=== PATIENT | male | born 1960 | race Caucasian/White ===

== ENCOUNTER 2023-07-24 21:59 | Inpatient (IN) | payer OTHER, SELFPAY ==
--- NOTE | ~2023-07-24 | CT_ITS ---
EXAMINATION: CT ANGIOGRAM OF THE CHEST WITH AND WITHOUT CONTRAST (CT PULMONARY ANGIOGRAM FOR PE) CLINICAL INFORMATION: Reason for Exam cardiac arrest COMPARISON: Chest x-ray July 24, 2023 TECHNIQUE: Prior to contrast administration, noncontrast localization images were obtained. Subsequently, multidetector volumetric imaging was performed from the thoracic inlet to below the diaphragms following the administration of 65 mL Omnipaque 350 intravenous contrast. No contrast reaction reported Sagittal, coronal, and MIP oblique sagittal reformatted images were obtained on the CT workstation, uploaded to PACS, and reviewed. This CT examination was performed using dose optimization techniques as appropriate, variously including the following: *Automated exposure control *Adjustment of mA and/or kV according to patient size (this includes techniques or standardized protocols for targeted exams where dose is matched to indication/reason for exam; i.e. extremities or head) *Use of iterative reconstruction technique Total exam dose-length product 313 mGy-cm FINDINGS: QUALITY OF STUDY/CONTRAST BOLUS: Satisfactory. PULMONARY ARTERIES: No pulmonary emboli. THORACIC AORTA: No aneurysm. LUNG: No focal consolidation, nodules or masses. PLEURA: No pleural effusion or pneumothorax. MEDIASTINUM: Normal heart size. No pericardial effusion. No hilar or mediastinal lymphadenopathy. No evidence of septal bowing or right heart strain. CORONARY ARTERY CALCIFICATION: None visualized on this study. CHEST WALL/AXILLA: No axillary or internal mammary lymphadenopathy. OSSEOUS STRUCTURES: Nondisplaced fracture of the anterior right second and fourth rib. There is displaced fracture of the anterior right third and fifth ribs. UPPER ABDOMEN: Unremarkable. No reflux of contrast into the hepatic veins to suggest elevated right heart pressures. CT/CT angio chest PE protocol IMPRESSION: 1. No evidence of pulmonary embolism. 2. Fractures of the anterior right second through fifth ribs. VTE: negative.
--- NOTE | ~2023-07-24 | XR_ITS ---
EXAMINATION: XR CHEST CLINICAL INFORMATION: Post arrest COMPARISON: None available. TECHNIQUE: Frontal view of the chest was obtained. FINDINGS: The cardiac and mediastinal contours are stable. The lungs are clear. No pleural effusion or pneumothorax. Degenerative changes of the spine. No acute bone abnormality. XR/XR chest 1V IMPRESSION: No evidence for acute disease in the chest.
--- NOTE | 2023-07-24 22:02 | ECG_ITS ---
Test Reason : CARDIAC ARREST Blood Pressure : / mmHG Vent. Rate : 077 BPM Atrial Rate : 077 BPM P-R Int : 156 ms QRS Dur : 092 ms QT Int : 388 ms P-R-T Axes : 018 016 064 degrees QTc Int : 439 ms Normal sinus rhythm Normal ECG No previous ECGs available Referred By: Patrizia Holman Electronically Signed By:LLUVIA GUIDRY MD
[2023-07-24 22:03] VITALS: BP 168/106; PULSE 78; RESP 16; O2SAT 99; BMI 29.9
[2023-07-24 22:15] LABS: MANUAL DIFF FLAG NO
[2023-07-24 22:16] LABS: Basophils Absolute Auto 0.1 X10*3/uL (0.0-0.2); Basophils Percent Auto 0.7 % (0-2); Eosinophils Absolute Auto 0.2 X10*3/uL (0.0-0.4); Eosinophils Percent Auto 2.4 % (0-4); Hematocrit 39.3 % (42.0-52.0); Hemoglobin 13.8 g/dl (14.0-18.0); Imm Gran Abs Auto 0.08 X10*3/uL (0.00-0.03); Imm Gran Pct Auto 1.2 % (0.0-0.4); Lymphocytes Absolute Auto 1.8 X10*3/uL (1.2-4.9); Lymphocytes Percent Auto 27.1 % (20-40); Mean Corpuscular HGB Conc 35.1 g/dl (31.0-36.0); Mean Corpuscular Hemoglobin 34.2 pg (27.0-33.0); Mean Corpuscular Volume 97.5 fL (80.0-98.0); Mean Platelet Volume 10.2 fL (9.4-12.4); Monocytes Absolute Auto 0.9 X10*3/uL (0.1-1.2); Monocytes Percent Auto 12.9 % (2-11); Neutrophils Absolute Auto 3.7 x10*3/uL (2.0-8.3); Neutrophils Percent Auto 55.7 % (45-73); Platelet Count 140 X10*3/uL (160-400); Red Blood Count 4.03 X10*6/uL (4.60-5.80); Red Cell Distribution Width 12.7 % (11.0-16.0); White Blood Count 6.7 X10*3/uL (4.8-10.8)
[2023-07-24] MEDS: 0.9 % Sodium Chloride 1,000 ML 999 ML IV (22:20)
[2023-07-24 22:25] LABS: Venous Blood Gas Refer to POC result
--- NOTE | 2023-07-24 22:25 | ED_ITS ---
HPI - Syncope General Chief Complaint: Cardiac Arrest/CPR Stated Complaint: collapsed Time Seen by Provider: 07/24/23 22:01 Source: patient and old records reviewed Mode of arrival: ambulatory Limitations: no limitations History of Present Illness HPI narrative: 63 yo male with PMH of HTN on lisinopril. He was in room 4 visiting his who is being admitted for Flu A she was in respiratory distress on arrival to the ED. A tech was in the room talking to the and the when mid sentence the was sitting the chair and he stopped talking and agonal respirations were heard. He did not respond to tactile stimuli. No seizure activity was noted. Help was called to bedside. On my arrival he was with agonal respirations, no abnormal movements, carson colored, no response to any tactile stimuli, pupils were sluggish but not pinpoint. He had no radial or carotid pulses. He was moved from the chair to a stretcher with immediate vigoruous chest compressions for 2 minutes while we obtained a line and high flow O2 through NRB. The patient came around after 2 minutes and started to wake up. He came to did not need intubation and was placed on tele with NSR noted. He denies any history of this. Denies knowing what happened did not have prodrome. He notes he has been sick with the same illness as his . MD complaint: collapsed (loss of pulses) Onset (ago): minute(s) (2) Duration of episode: 3 -: minutes(s) Description of event: stopped breathing, lost pulse and CPR performed Prodromal symptoms: none Witnessed: Yes - by Bystander (ED staff) Context: at rest Injuries sustained associated with event: none Current symptoms: back to baseline Treatments prior to arrival: none Related Data Allergies Allergy/AdvReac Type Severity Reaction Status Date / Time No Known Allergies Allergy Verified 07/24/23 22:02 Review of Systems 2 Review of Systems: Constitutional : No Fever, No Chills, pos Fatigue ENT/Mouth : No sore throat, pos Rhinorrhea Eyes: No Eye Pain, No Swelling, No Redness Cardiovascular : No Chest Pain, No SOB, No Dyspnea on Exertion Respiratory : pos Cough, No Sputum Gastrointestinal : No Nausea, No Vomiting, No Diarrhea, No abdominal Pain Genitourinary : No Dysuria, No Urinary Frequency, No Hematuria, Musculoskeletal : No joint pain, No Myalgias, No Joint Swelling Skin : No Skin Lesions, No rash Neuro : No Weakness, No Numbness, No Dizziness, no Headache Psych : No Anxiety/Panic, No Depression Heme/Lymph: No Bruising, No Bleeding,No Lymphadenopathy Endocrine : No Polyuria, No Polydipsia All other systems reviewed and are negative FOR[facility]LY [facility] Past Medical History Attestation statement: The following information was validated with the patient. Source: old records reviewed Medical History HTN (hypertension) Social History Social History Patient Tobacco Use Status: Never used Tobacco Advance Directives: No Advance Directives Information Provided: No Physical Exam 2 Vital Signs: Vital Signs: Last Vital Signs Temp 99.1 F 07/25/23 00:00 Pulse 94 07/25/23 02:42 Resp 22 H 07/25/23 02:42 BP 175/100 H 07/25/23 02:42 Pulse Ox 95 07/25/23 02:42 O2 Del Method Room Air 07/25/23 02:42 BMI result Body Mass Index 29.9 Appearance: initially carson, agonal respirations, severe distress Eyes: Pupils equal, round and reactive to light. but sluggish not pinpoint ENT: Pharynx normal. no gag reflex noted Neck: Normal inspection. Neck supple. CVS: absent heart sounds and no pulses felt Respiratory: severe respiratory distress. Breath sounds diminished - agonal Abdomen: Soft and nontender. Skin: Skin carson and diaphoretic Extremities: No lower extremity edema. No calf ttp Neuro: initially no response to any stimuli after CPR back to baseline but did not recall events no prodrom Course Course Course Narrative: still at baseline no complaints. lactic acidosis due to cardiac arrest and not infection or severe sepsis Reevaluation(s) Reevaluation #1: hospitalist will not accept we have no ICU beds patient is thinking about leaving AMA as there are no beds at [facility] or [facility] Reevaluation #2: discussed with cardiology after review of case normal tele and two trops will be admitted here on tele Medications Administered Generic Name Dose Route Start Last Admin Trade Name Freq PRN Reason Stop Dose Admin Enoxaparin Sodium 40 mg 07/25/23 02:15 07/25/23 02:38 Enoxaparin Sodium 40 Mg/0.4 Ml Syringe SUBCUT 40 mg DAILY ANGELY Administration Ketorolac Tromethamine 15 mg 07/25/23 04:27 07/25/23 04:32 Ketorolac Tromethamine 15 Mg/Ml Vial IVPUSH 15 mg Q6H PRN Administration Pain, Moderate(Pain Scale 4-6) Discontinued Medications Generic Name Dose Route Start Last Admin Trade Name Freq PRN Reason Stop Dose Admin Sodium Chloride 1,000 mls @ 999 mls/hr 07/24/23 22:15 07/24/23 23:58 Ns IV 07/24/23 23:15 Infused .Q1H1M ANGELY Infusion Thiamine HCl 100 mg/ Sodium 101 mls @ 202 mls/hr 07/25/23 02:30 07/25/23 03:58 Chloride IV 07/25/23 02:59 Infused ONCE ONE Infusion Iohexol 65 ml 07/24/23 22:54 07/24/23 22:55 Iohexol 350 Mg/Ml 100 Ml Infus..Btl IV 07/24/23 22:55 65 ml ONCE ONE Administration Potassium Chloride 40 meq 07/24/23 22:47 07/24/23 23:03 Potassium Chloride Packet 20 Meq Packet PO 07/24/23 22:48 40 meq ONCE ONE Administration Medical Decision Making Medical Decision Making MDM Narrative: 63 yo male with PMH of HTN not a smoker with recent URI who was visiting his and had witnessed cardiac arrest in the ED no pulses before we could get him on the monitor after 2 min of CPR he had ROSC and initial rhythm was NSR. He denies any symptoms but did not have a prodrome. He denies hx of issues with the heart or arrythmia. At this time labs, IVF, CTA for PE, viral swab. Differential Diagnosis Differential Diagnoses: The differential diagnosis associated with the presentation includes arrythmia, lyte abnormality, PE Admission/Observation Consideration of admission/observation: Escalation of care including admission/observation considered will admit for tele Consult Healthcare Provider Management of the patient was discussed with: Hospitalist and Electrical Checkout Mechanic Lab Data MDM Lab Attestation statement: I reviewed the patient's lab results. 07/25/23 05:36 07/25/23 05:36 Labs: Lab Results 07/24/23 07/24/23 07/24/23 Range/Units 22:08 22:12 22:20 WBC 6.7 (4.8-10.8) X10*3/uL RBC 4.03 L (4.60-5.80) X10*6/uL Hgb 13.8 L (14.0-18.0) g/dl Hct 39.3 L (42.0-52.0) % MCV 97.5 (80.0-98.0) fL MCH 34.2 H (27.0-33.0) pg MCHC 35.1 (31.0-36.0) g/dl RDW 12.7 (11.0-16.0) % Plt Count 140 L (160-400) X10*3/uL MPV 10.2 (9.4-12.4) fL Immature Gran % (Auto) 1.2 H (0.0-0.4) % Neut % (Auto) 55.7 (45-73) % Lymph % (Auto) 27.1 (20-40) % [place] % (Auto) 12.9 H (2-11) % Eos % (Auto) 2.4 (0-4) % Baso % (Auto) 0.7 (0-2) % Lymph # (Auto) 1.8 (1.2-4.9) X10*3/uL [place] # (Auto) 0.9 (0.1-1.2) X10*3/uL Eos # (Auto) 0.2 (0.0-0.4) X10*3/uL Baso # (Auto) 0.1 (0.0-0.2) X10*3/uL Abs Immat Gran (auto) 0.08 H (0.00-0.03) X10*3/uL Absolute Neuts (auto) 3.7 (2.0-8.3) x10*3/uL Absolute Nucleated RBC 0.000 (0.0-0.012) X10*3/uL Nucleated RBC % (auto) 0.0 (0.0-0.2) /100WBC VBG pH 7.34 (7.32-7.43) VBG pCO2 46 mmHg VBG pO2 41 mmHg VBG HCO3 25 (22-26) mmol/L VBG O2 Saturation 64.0 % VBG Base Excess -0.6 mmol/L Sodium 136 (135-145) mmol/L Potassium 3.1 L (3.3-5.1) mmol/L Chloride 101 (96-108) mmol/L Carbon Dioxide 23 (22-29) mmol/L Anion Gap 15 (12-20) BUN 15 (9-16) mg/dL Creatinine 1.16 (0.5-1.4) mg/dL Estim Creat Clear Calc 65.3 Estimated GFR > 60 Random Glucose 151 H (60-115) mg/dL Lactic Acid 3.4 H* (0.5-2.0) mmol/L Lactic Acid F/U @ 2Hr (0.5-2.0) mmol/L Calcium 9.3 (8.4-10.2) mg/dL Magnesium 2.0 (1.6-2.6) mg/dL Total Bilirubin 0.3 (0.0-1.0) mg/dL Direct Bilirubin 0.1 (0.0-0.5) mg/dL AST 34 (5-37) U/L ALT 17 (0-40) U/L Alkaline Phosphatase 78 (39-117) U/L Troponin I High Sens 6.5 (<3.5-35.0) ng/L B-Natriuretic Peptide 35 (<100) pg/mL Total Protein 7.5 (6.5-8.0) g/dL Albumin 4.0 (3.5-5.0) g/dL Procalcitonin 0.09 ng/mL Urine Color Urine Appearance Urine pH (5.0-9.0) Ur Specific [place] (1.005-1.025) Urine Protein (Neg-Trace) mg/dL Urine Glucose (UA) (Negative) mg/dL Urine Ketones (Negative) mg/dL Urine Blood (Negative) Urine Nitrite (Negative) Ur Leukocyte Esterase (Negative) Urine RBC (0-2) /HPF Urine WBC (0-5) /HPF Ur Squamous Epith Cells (0-2) /HPF Urine Bacteria (None Seen) Hyaline Casts (0-2) /LPF Urine Opiates Screen (Not Detect) Urine Fentanyl Screen (Not Detect) Ur Barbiturates Screen (Not Detect) Ur Phencyclidine Scrn (Not Detect) Ur Amphetamines Screen (Not Detect) U Benzodiazepines Scrn (Not Detect) Urine Cocaine Screen (Not Detect) U Marijuana (THC) Screen (Not Detect) Ethyl Alcohol 101 mg/dL Influenza Type A (PCR) POSITIVE A (Negative) Influenza Type B (PCR) NEGATIVE (Negative) RSV RNA Qual (PCR) NEGATIVE (Negative) SARS-CoV-2 RNA (RT-PCR) NEGATIVE (Negative) 07/25/23 07/25/23 Range/Units 00:43 00:44 WBC (4.8-10.8) X10*3/uL RBC (4.60-5.80) X10*6/uL Hgb (14.0-18.0) g/dl Hct (42.0-52.0) % MCV (80.0-98.0) fL MCH (27.0-33.0) pg MCHC (31.0-36.0) g/dl RDW (11.0-16.0) % Plt Count (160-400) X10*3/uL MPV (9.4-12.4) fL Immature Gran % (Auto) (0.0-0.4) % Neut % (Auto) (45-73) % Lymph % (Auto) (20-40) % [place] % (Auto) (2-11) % Eos % (Auto) (0-4) % Baso % (Auto) (0-2) % Lymph # (Auto) (1.2-4.9) X10*3/uL [place] # (Auto) (0.1-1.2) X10*3/uL Eos # (Auto) (0.0-0.4) X10*3/uL Baso # (Auto) (0.0-0.2) X10*3/uL Abs Immat Gran (auto) (0.00-0.03) X10*3/uL Absolute Neuts (auto) (2.0-8.3) x10*3/uL Absolute Nucleated RBC (0.0-0.012) X10*3/uL Nucleated RBC % (auto) (0.0-0.2) /100WBC VBG pH (7.32-7.43) VBG pCO2 mmHg VBG pO2 mmHg VBG HCO3 (22-26) mmol/L VBG O2 Saturation % VBG Base Excess mmol/L Sodium (135-145) mmol/L Potassium (3.3-5.1) mmol/L Chloride (96-108) mmol/L Carbon Dioxide (22-29) mmol/L Anion Gap (12-20) BUN (9-16) mg/dL Creatinine (0.5-1.4) mg/dL Estim Creat Clear Calc Estimated GFR Random Glucose (60-115) mg/dL Lactic Acid (0.5-2.0) mmol/L Lactic Acid F/U @ 2Hr 1.9 (0.5-2.0) mmol/L Calcium (8.4-10.2) mg/dL Magnesium (1.6-2.6) mg/dL Total Bilirubin (0.0-1.0) mg/dL Direct Bilirubin (0.0-0.5) mg/dL AST (5-37) U/L ALT (0-40) U/L Alkaline Phosphatase (39-117) U/L Troponin I High Sens 7.9 (<3.5-35.0) ng/L B-Natriuretic Peptide (<100) pg/mL Total Protein (6.5-8.0) g/dL Albumin (3.5-5.0) g/dL Procalcitonin ng/mL Urine Color Yellow Urine Appearance Clear Urine pH 5.5 (5.0-9.0) Ur Specific [place] >= 1.030 H (1.005-1.025) Urine Protein Negative (Neg-Trace) mg/dL Urine Glucose (UA) Negative (Negative) mg/dL Urine Ketones Negative (Negative) mg/dL Urine Blood Trace H (Negative) Urine Nitrite Negative (Negative) Ur Leukocyte Esterase Negative (Negative) Urine RBC 3-5 H (0-2) /HPF Urine WBC 0-5 (0-5) /HPF Ur Squamous Epith Cells 0-2 (0-2) /HPF Urine Bacteria None Seen (None Seen) Hyaline Casts 0-2 (0-2) /LPF Urine Opiates Screen Not Detected (Not Detect) Urine Fentanyl Screen Not Detected (Not Detect) Ur Barbiturates Screen Not Detected (Not Detect) Ur Phencyclidine Scrn Not Detected (Not Detect) Ur Amphetamines Screen Not Detected (Not Detect) U Benzodiazepines Scrn Not Detected (Not Detect) Urine Cocaine Screen Not Detected (Not Detect) U Marijuana (THC) Screen POSITIVE H (Not Detect) Ethyl Alcohol mg/dL Influenza Type A (PCR) (Negative) Influenza Type B (PCR) (Negative) RSV RNA Qual (PCR) (Negative) SARS-CoV-2 RNA (RT-PCR) (Negative) Independent Interpretation I performed an independent interpretation of an: EKG, Plain X-Ray and CT Scan (no PE) Interpretation: Rate: 77 Rhythm: NSR [place]: normal Normal P waves. Normal BRIAN. Normal QRS complex. ST T wave : no HAILE, nonspecific ST T wave aVL, inverated T wave in V1-V2 qTC: 439 prior studies: The study has been interpreted contemporaneously by me. . Radiology Impression Discussion of test interpretation with radiology: I have reviewed the radiologist's reading. Independent Historian Clinical information obtained from an independent historian. History obtained from or confirmed by: Spouse Critical Care Time Critical Care Time Critical Care Time: Yes Total Critical Care Time: 45 Attestation: repeat labs, cardiac arrest care I attest to this time spent taking care of the patient Discharge Plan Discharge Clinical Impression: Cardiac arrest, Influenza A, Alcohol use Patient Disposition: Admitted As Inpatient
[2023-07-24 22:26] LABS: VBG Base Excess -0.6 mmol/L; VBG HCO3 25 mmol/L (22-26); VBG pCO2 46 mmHg; VBG pH 7.34 (7.32-7.43); VBG pO2 41 mmHg
[2023-07-24 22:36] LABS: B Type Natriuretic Peptide 35 pg/mL (<100)
[2023-07-24 22:38] LABS: Alanine Aminotransferase 17 U/L (0-40); Alkaline Phosphatase 78 U/L (39-117); Anion Gap 15 (12-20); Aspartate Amino Transferase 34 U/L (5-37); Bilirubin Direct 0.1 mg/dL (0.0-0.5); Bilirubin Total 0.3 mg/dL (0.0-1.0); Blood Urea Nitrogen 15 mg/dL (9-16); Calcium 9.3 mg/dL (8.4-10.2); Carbon Dioxide 23 mmol/L (22-29); Chloride 101 mmol/L (96-108); Creatinine Clr Calc Pharmacy 65.3; Estimated Glomerular Filt Rate > 60; Glucose Random 151 mg/dL (60-115); Potassium 3.1 mmol/L (3.3-5.1); Sodium 136 mmol/L (135-145); Total Protein 7.5 g/dL (6.5-8.0)
[2023-07-24 22:39] LABS: Troponin-I High Sensitivity 6.5 ng/L (<3.5-35.0)
[2023-07-24 22:45] LABS: Lactic Acid 3.4 mmol/L (0.5-2.0)
[2023-07-24 22:48] LABS: Ethanol 101 mg/dL
[2023-07-24 22:53] LABS: Procalcitonin 0.09 ng/mL
[2023-07-24 22:55] LABS: Influenza A PCR POSITIVE (Negative); Influenza B PCR NEGATIVE (Negative); Resp Syncy Virus RNA Qual PCR NEGATIVE (Negative); SARS COV2 PCR INHOUSE NEGATIVE (Negative)
[2023-07-24] MEDS: iohexoL 350 MG/ML 100 ML INFUS..BTL 65 ML IV (22:55)
[2023-07-24] MEDS: Potassium Chloride Packet 20 MEQ PACKET 40 MEQ PO (23:03)
[2023-07-24 23:19] VITALS: BP 167/97; PULSE 88; RESP 19; TEMP 36.8; O2SAT 99
[2023-07-25] VITALS (8 sets, daily range): BP systolic 113–189; BP diastolic 63–100; PULSE 82–96; RESP 18–26; TEMP 36.4–37.3; O2SAT 93–97; BMI 29.9
[2023-07-25 00:29] LABS: Reflex Lactate? Lactic Acid Added
--- NOTE | 2023-07-25 00:48 | PC.NURSE ---
Pt is A&Ox4, GCS 15, complaining of soreness in his chest. Pt has bilateral IV's. 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
[2023-07-25 00:51] LABS: Appearance Urine Clear; Color Urine Yellow; Glucose Urine UA Negative (Negative); Leukocyte Esterase Urine Negative (Negative); Nitrite Urine Negative (Negative); PH 5.5 (5.0-9.0); Specific Gravity - Urine >= 1.030 (1.005-1.025); UMIC TRIGGER UACC YES; Urine Blood Trace (Negative); Urine Ketones Negative (Negative); Urine Protein Negative (Neg-Trace)
[2023-07-25 00:58] LABS: Bacteria Urine None Seen (None Seen); Hyaline Casts Urine 0-2 /LPF (0-2); Squamous Epithelial Cell Urine 0-2 /HPF (0-2); WBC Urine 0-5 /HPF (0-5)
[2023-07-25 01:00] LABS: ~Lactic Acid-LAB USE ONLY 1.9 mmol/L (0.5-2.0)
[2023-07-25 01:04] LABS: Amphetamine Screen Urine Not Detected (Not Detect); Barbiturates, Urine Not Detected (Not Detect); Cannabinoid Screen Urine POSITIVE (Not Detect); Cocaine Screen Urine Not Detected (Not Detect); Fentanyl, urine Not Detected (Not Detect); Opiate Screen Urine Not Detected (Not Detect); Phencyclidine Screen Urine Not Detected (Not Detect)
[2023-07-25 01:08] LABS: Benzodiazepines Screen Urine Not Detected (Not Detect)
[2023-07-25 01:13] LABS: Troponin-I High Sensitivity 7.9 ng/L (<3.5-35.0)
--- NOTE | 2023-07-25 02:09 | P.HPHOSP_ITS ---
History of Present Illness Date of Service: 07/25/23 Chief Complaint: Cardiac arrest This is a 63-year-old male with pertinent history of essential hypertension on lisinopril who was in emergency department room with his , when he went unresponsive, he was found to have no pulse and resuscitated after 2 minutes of CPR. Patient states he was tested positive for flu 2 days prior to presentation. He has been feeling weak over the last 2 days. Patient found that his had difficulty breathing and could not go to the bathroom due to shortness of breath. He called EMS who got patient's to the ER. Patient accompanied his and was sitting in the emergency department room when mid sentence he stopped talking. Patient was unresponsive and found to have agonal respiration. And was not responding to tactile stimuli. No seizure activity was noted. As per ER provider, pupils with sluggish and there were no carotid or radial pulses. Patient was immediately moved to a stretcher and ACLS was initiated. ROSC obtained after 2 minutes of CPR. Patient's mentation returned to normal. 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 Patient states he has never been hospitalized in the past since his tonsillectomy as a child. He is compliant with his lisinopril for essential hypertension. He does consume alcohol and smokes marijuana but no history of alcohol withdrawals. History of sudden cardiac in family. Patient could not be transferred to ICU due to lack of availability of ICU bed in the facility. Cardiology was consulted who said okay to admit to med [facility]. Review of Systems 2 Constitutional: Constitutional: Reports fatigue, Reports lethargy and Reports malaise Cardiovascular: Cardiovascular: Reports no additional cardiovascular complaints Respiratory: Respiratory: Reports no additional respiratory complaints Gastrointestinal: Gastrointestinal: Reports no additional gastrointestinal complaints Genitourinary: Genitourinary: Reports no additional male genitourinary complaints Endocrine: Endocrine: Reports fatigue PMFSH Medical History HTN (hypertension) Pertinent family history: No family history of cardiac Social History Patient Tobacco Use Status: Never used Tobacco Advance Directives: No Advance Directives Information Provided: No Meds Allergies Allergy/AdvReac Type Severity Reaction Status Date / Time No Known Allergies Allergy Verified 07/24/23 22:02 Physical Exam 2 Vital Signs and Narrative: Vital Signs: Last Vital Signs Temp 99.1 F 07/25/23 00:00 Pulse 91 07/25/23 00:00 Resp 26 H 07/25/23 00:00 BP 113/63 07/25/23 00:00 Pulse Ox 93 07/25/23 00:00 O2 Del Method Room Air 07/25/23 00:00 BMI result Body Mass Index 29.9 Middle-aged male lying in bed in no distress Neck supple, no JVD Regular rate and rhythm, S1-S2 heard Regular breath sounds bilaterally, no wheezing or crackles appreciated Abdomen soft nontender, no guarding, no rigidity Patient is awake, alert and oriented to self, place, time and person ; no focal motor deficit Psych: Normal mood No pedal edema Results Labs 07/24/23 22:08 07/24/23 22:08 Labs: Laboratory Results - last 24 hr 07/24/23 07/24/23 07/24/23 22:08 22:12 22:20 MCV 97.5 MCH 34.2 H MCHC 35.1 RDW 12.7 Plt Count 140 L MPV 10.2 Immature Gran % (Auto) 1.2 H Neut % (Auto) 55.7 Lymph % (Auto) 27.1 [place] % (Auto) 12.9 H Eos % (Auto) 2.4 Baso % (Auto) 0.7 Lymph # (Auto) 1.8 [place] # (Auto) 0.9 Eos # (Auto) 0.2 Baso # (Auto) 0.1 Abs Immat Gran (auto) 0.08 H Absolute Neuts (auto) 3.7 Absolute Nucleated RBC 0.000 Nucleated RBC % (auto) 0.0 VBG pH 7.34 VBG pCO2 46 VBG pO2 41 VBG HCO3 25 VBG O2 Saturation 64.0 VBG Base Excess -0.6 Anion Gap 15 Estim Creat Clear Calc 65.3 Estimated GFR > 60 Random Glucose 151 H Lactic Acid 3.4 H* Lactic Acid F/U @ 2Hr Calcium 9.3 Magnesium 2.0 Total Bilirubin 0.3 Direct Bilirubin 0.1 AST 34 ALT 17 Alkaline Phosphatase 78 Troponin I High Sens 6.5 B-Natriuretic Peptide 35 Total Protein 7.5 Albumin 4.0 Procalcitonin 0.09 Urine Color Urine Appearance Urine pH Ur Specific [place] Urine Protein Urine Glucose (UA) Urine Ketones Urine Blood Urine Nitrite Ur Leukocyte Esterase Urine RBC Urine WBC Ur Squamous Epith Cells Urine Bacteria Hyaline Casts Urine Opiates Screen Urine Fentanyl Screen Ur Barbiturates Screen Ur Phencyclidine Scrn Ur Amphetamines Screen U Benzodiazepines Scrn Urine Cocaine Screen U Marijuana (THC) Screen Ethyl Alcohol 101 Influenza Type A (PCR) POSITIVE A Influenza Type B (PCR) NEGATIVE RSV RNA Qual (PCR) NEGATIVE SARS-CoV-2 RNA (RT-PCR) NEGATIVE 07/25/23 07/25/23 00:43 00:44 MCV MCH MCHC RDW Plt Count MPV Immature Gran % (Auto) Neut % (Auto) Lymph % (Auto) [place] % (Auto) Eos % (Auto) Baso % (Auto) Lymph # (Auto) [place] # (Auto) Eos # (Auto) Baso # (Auto) Abs Immat Gran (auto) Absolute Neuts (auto) Absolute Nucleated RBC Nucleated RBC % (auto) VBG pH VBG pCO2 VBG pO2 VBG HCO3 VBG O2 Saturation VBG Base Excess Anion Gap Estim Creat Clear Calc Estimated GFR Random Glucose Lactic Acid Lactic Acid F/U @ 2Hr 1.9 Calcium Magnesium Total Bilirubin Direct Bilirubin AST ALT Alkaline Phosphatase Troponin I High Sens 7.9 B-Natriuretic Peptide Total Protein Albumin Procalcitonin Urine Color Yellow Urine Appearance Clear Urine pH 5.5 Ur Specific [place] >= 1.030 H Urine Protein Negative Urine Glucose (UA) Negative Urine Ketones Negative Urine Blood Trace H Urine Nitrite Negative Ur Leukocyte Esterase Negative Urine RBC 3-5 H Urine WBC 0-5 Ur Squamous Epith Cells 0-2 Urine Bacteria None Seen Hyaline Casts 0-2 Urine Opiates Screen Not Detected Urine Fentanyl Screen Not Detected Ur Barbiturates Screen Not Detected Ur Phencyclidine Scrn Not Detected Ur Amphetamines Screen Not Detected U Benzodiazepines Scrn Not Detected Urine Cocaine Screen Not Detected U Marijuana (THC) Screen POSITIVE H Ethyl Alcohol Influenza Type A (PCR) Influenza Type B (PCR) RSV RNA Qual (PCR) SARS-CoV-2 RNA (RT-PCR) Imaging Radiologist's Impressions: Impressions Chest X-Ray 07/24/23 22:10 IMPRESSION: No evidence for acute disease in the chest. Chest CTA 07/24/23 23:11 IMPRESSION: 1. No evidence of pulmonary embolism. 2. Fractures of the anterior right second through fifth ribs. VTE: negative. Assessment and Plan (1) Cardiac arrest: Status: Acute (2) Influenza A: Status: Acute Plan This is a 63-year-old male with pertinent history of essential hypertension on lisinopril who was in emergency department room with his , when he went unresponsive, he was found to have no pulse and resuscitated after 2 minutes of CPR. #. Cardiac arrest: ROSC obtained in the ER after 2 minutes of ACLS. Unclear rhythm at the time of cardiac arrest. Cardiology was consulted who said it was okay to admit to med- tele. Obtaining echocardiogram. Mentation back to baseline and no indication for TTM #. Essential hypertension: On lisinopril #. Alcohol use disorder: Initiating thiamine. Monitor CIWA. No concerns of withdrawal #. Lactic acidosis due to cardiac arrest, no sepsis #. Influenza A infection: Initiating tamiflu #. Hypokalemia: Repleted DVT prophylaxis: Lovenox Full code Admit as inpatient and will require two night minimum hospital stay for close hemodynamic monitoring (as above), which is not possible in a lesser acute setting. Specialist consult pending Quality Stroke Does the patient have a stroke diagnosis?: No VTE Prior VTE?: No VTE Risk Level:: Medical - moderate - high VTE Device Contraindication: Treatment Not Indicated VTE Drug Contraindication: N/A - Med Ordered
[2023-07-25] MEDS: Thiamine HCL 100 MG in 0.9 % Sodium Chloride 100 ML 202 MG IV (02:38)
[2023-07-25] MEDS: Enoxaparin Sodium 40 MG/0.4 ML SYRINGE SUBCUT (02:38)
[2023-07-25] MEDS: Ketorolac Tromethamine 15 MG/ML VIAL IVPUSH ×3 (04:32→19:40)
[2023-07-25 05:50] LABS: Hematocrit 36.8 % (42.0-52.0); Mean Corpuscular HGB Conc 35.3 g/dl (31.0-36.0); Mean Corpuscular Hemoglobin 34.1 pg (27.0-33.0); Mean Corpuscular Volume 96.6 fL (80.0-98.0); Mean Platelet Volume 10.2 fL (9.4-12.4); Platelet Count 121 X10*3/uL (160-400); Red Blood Count 3.81 X10*6/uL (4.60-5.80); Red Cell Distribution Width 12.8 % (11.0-16.0); White Blood Count 4.8 X10*3/uL (4.8-10.8)
[2023-07-25 06:05] LABS: Anion Gap 14 (12-20); Blood Urea Nitrogen 12 mg/dL (9-16); Calcium 8.7 mg/dL (8.4-10.2); Carbon Dioxide 23 mmol/L (22-29); Chloride 104 mmol/L (96-108); Creatinine Clr Calc Pharmacy 86.1; Estimated Glomerular Filt Rate > 60; Glucose Random 112 mg/dL (60-115); Potassium 4.1 mmol/L (3.3-5.1); Sodium 137 mmol/L (135-145)
[2023-07-25 06:12] LABS: Troponin-I High Sensitivity 7.1 ng/L (<3.5-35.0)
--- NOTE | 2023-07-25 07:58 | PC.NURSE ---
this RN resumed care of pt at this time. a&ox4. vss and up to date. nsr on the panel monitor. pt verbalizing 4/10 right sided rib pain since medication administration. pt states pain increases w/ cough but otherwise tolerable. pt remains on 2L via NC for support - 98%. no sob/wob noted. pt able to speak in full/clear sentences w/o difficulty. respirations even and unlabored. pt resting in no apparent distress - waiting for bed assignment. plan of care ongoing. call dacosta placed within reach.
[2023-07-25] MEDS: lisinopriL 20 MG TABLET PO (08:40)
[2023-07-25] MEDS: 0.9 % Sodium Chloride Flush 3 ML SYRINGE IVFLUSH ×3 (08:41→19:43)
--- NOTE | 2023-07-25 08:42 | PC.NURSE ---
pt medicated per provider order. pt speaking w/ hospitalist at this time in regards to future plan of care. call dacosta placed within reach.
[2023-07-25] MEDS: Oseltamivir Phosphate 75 MG CAPSULE PO ×2 (08:43→19:40)
--- NOTE | 2023-07-25 09:06 | PHA.MEDREC ---
Pharmacy Consult ? Medication Reconciliation Pharmacy has completed the medication reconciliation. Spoke to patient and confirmed medication list.
--- NOTE | 2023-07-25 10:18 | HO.PM.IMPN ---
Subjective Subjective Date of Service: 07/25/23 Interval History: sore chest, otherwise feels fine Physical Exam Vital Signs: Vital Signs: Last Vital Signs Temp 97.9 F 07/25/23 07:57 Pulse 87 07/25/23 07:57 Resp 18 07/25/23 07:57 BP 156/95 H 07/25/23 07:57 Pulse Ox 97 07/25/23 07:57 O2 Del Method Nasal Cannula 07/25/23 07:57 O2 Flow Rate 2 07/25/23 07:57 BMI result Body Mass Index 29.9 General: AO X 3, no acute distress Resp: CTA bilateral, no accessory muscles used CVS: S1,S2,RRR chest tender to palpation GI: soft, non tender, non distended Neuro: motor grossly intact, alert, resting tremor Psych: appropriate affect, appropriate insight Objective Data Active Medications Acetaminophen (Acetaminophen 325 Mg Tablet) 650 mg PO Q6H PRN PRN Reason: Pain, Mild (Pain Scale 1-3) Enoxaparin Sodium (Enoxaparin Sodium 40 Mg/0.4 Ml Syringe) 40 mg SUBCUT DAILY [facility] Last Admin: 07/25/23 02:38 Dose: 40 mg Documented By: LORA Ketorolac Tromethamine (Ketorolac Tromethamine 15 Mg/Ml Vial) 15 mg IVPUSH Q6H PRN PRN Reason: Pain, Moderate(Pain Scale 4-6) Last Admin: 07/25/23 04:32 Dose: 15 mg Documented By: LORA Lisinopril (Lisinopril 20 Mg Tablet) 20 mg PO DAILY [facility]; Protocol Last Admin: 07/25/23 08:40 Dose: 20 mg Documented By: NEMESIO Melatonin (Melatonin 3 Mg Tablet) 6 mg PO BEDTIME PRN PRN Reason: Insomnia Ondansetron HCl (Ondansetron Hcl 4 Mg/2 Ml Vial) 4 mg IVPUSH Q8H PRN PRN Reason: Nausea and Vomiting Oseltamivir Phosphate (Oseltamivir Phosphate 75 Mg Capsule) 75 mg PO Q12H [facility] Stop: 07/29/23 21:01 Last Admin: 07/25/23 08:43 Dose: 75 mg Documented By: NEMESIO Sodium Chloride (0.9 % Sodium Chloride Flush 3 Ml Syringe) [facility] Last Admin: 07/25/23 08:41 Dose: 3 ml Documented By: NEMESIO Thiamine HCl (Thiamine Hcl 100 Mg Tablet) 100 mg PO DAILY [facility] Labs 07/25/23 05:36 07/25/23 05:36 Labs: Laboratory Results - last 24 hr 07/24/23 07/24/23 07/24/23 22:08 22:12 22:20 MCV 97.5 MCH 34.2 H MCHC 35.1 RDW 12.7 Plt Count 140 L MPV 10.2 Immature Gran % (Auto) 1.2 H Neut % (Auto) 55.7 Lymph % (Auto) 27.1 [place] % (Auto) 12.9 H Eos % (Auto) 2.4 Baso % (Auto) 0.7 Lymph # (Auto) 1.8 [place] # (Auto) 0.9 Eos # (Auto) 0.2 Baso # (Auto) 0.1 Abs Immat Gran (auto) 0.08 H Absolute Neuts (auto) 3.7 Absolute Nucleated RBC 0.000 Nucleated RBC % (auto) 0.0 VBG pH 7.34 VBG pCO2 46 VBG pO2 41 VBG HCO3 25 VBG O2 Saturation 64.0 VBG Base Excess -0.6 Anion Gap 15 Estim Creat Clear Calc 65.3 Estimated GFR > 60 Random Glucose 151 H Lactic Acid 3.4 H* Lactic Acid F/U @ 2Hr Calcium 9.3 Magnesium 2.0 Total Bilirubin 0.3 Direct Bilirubin 0.1 AST 34 ALT 17 Alkaline Phosphatase 78 Troponin I High Sens 6.5 B-Natriuretic Peptide 35 Total Protein 7.5 Albumin 4.0 Procalcitonin 0.09 Urine Color Urine Appearance Urine pH Ur Specific [place] Urine Protein Urine Glucose (UA) Urine Ketones Urine Blood Urine Nitrite Ur Leukocyte Esterase Urine RBC Urine WBC Ur Squamous Epith Cells Urine Bacteria Hyaline Casts Urine Opiates Screen Urine Fentanyl Screen Ur Barbiturates Screen Ur Phencyclidine Scrn Ur Amphetamines Screen U Benzodiazepines Scrn Urine Cocaine Screen U Marijuana (THC) Screen Ethyl Alcohol 101 Influenza Type A (PCR) POSITIVE A Influenza Type B (PCR) NEGATIVE RSV RNA Qual (PCR) NEGATIVE SARS-CoV-2 RNA (RT-PCR) NEGATIVE 07/25/23 07/25/23 07/25/23 00:43 00:44 05:36 MCV 96.6 MCH 34.1 H MCHC 35.3 RDW 12.8 Plt Count 121 L MPV 10.2 Immature Gran % (Auto) Neut % (Auto) Lymph % (Auto) [place] % (Auto) Eos % (Auto) Baso % (Auto) Lymph # (Auto) [place] # (Auto) Eos # (Auto) Baso # (Auto) Abs Immat Gran (auto) Absolute Neuts (auto) Absolute Nucleated RBC 0.000 Nucleated RBC % (auto) 0.0 VBG pH VBG pCO2 VBG pO2 VBG HCO3 VBG O2 Saturation VBG Base Excess Anion Gap 14 Estim Creat Clear Calc 86.1 Estimated GFR > 60 Random Glucose 112 Lactic Acid Lactic Acid F/U @ 2Hr 1.9 Calcium 8.7 D Magnesium Total Bilirubin Direct Bilirubin AST ALT Alkaline Phosphatase Troponin I High Sens 7.9 7.1 B-Natriuretic Peptide Total Protein Albumin Procalcitonin Urine Color Yellow Urine Appearance Clear Urine pH 5.5 Ur Specific [place] >= 1.030 H Urine Protein Negative Urine Glucose (UA) Negative Urine Ketones Negative Urine Blood Trace H Urine Nitrite Negative Ur Leukocyte Esterase Negative Urine RBC 3-5 H Urine WBC 0-5 Ur Squamous Epith Cells 0-2 Urine Bacteria None Seen Hyaline Casts 0-2 Urine Opiates Screen Not Detected Urine Fentanyl Screen Not Detected Ur Barbiturates Screen Not Detected Ur Phencyclidine Scrn Not Detected Ur Amphetamines Screen Not Detected U Benzodiazepines Scrn Not Detected Urine Cocaine Screen Not Detected U Marijuana (THC) Screen POSITIVE H Ethyl Alcohol Influenza Type A (PCR) Influenza Type B (PCR) RSV RNA Qual (PCR) SARS-CoV-2 RNA (RT-PCR) Assessment and Plan (1) Influenza A: Status: Acute Plan 63M PMH htn, etoh use presented with cardiac arrest as while visitor in ED cardiac arrest ROSC achieved after 2 minutes, NSR continue tele, echo, cardio eval back to baseline multiple rib fractures due to CPR symptomatic management etoh dependence monitor ciwa htn lisinopril flu a tamiflu acute hypokalemia replaced acute lactic acidosis resolved, due to cardiac arrest, not sepsis reason for continued hospitalization:ongoing work up for cardiac arrest Quality Stroke Does the patient have a stroke diagnosis?: No VTE Prior VTE?: No VTE Risk Level:: Medical - moderate - high VTE Device Contraindication: Treatment Not Indicated VTE Drug Contraindication: N/A - Med Ordered
--- NOTE | 2023-07-25 11:16 | PC.NURSE ---
pt verbalizing pain level is a 6/10 at this time. pt medicated w/ prn medication at this time. effectiveness pending.
--- NOTE | 2023-07-25 12:16 | PC.NURSE ---
admission worksheet complete. transport notified at this time.
--- NOTE | 2023-07-25 13:32 | PM.CNCAR ---
History of Present Illness History of Present Illness Date of Service: 07/25/23 Requesting physician: Sina Lezama Consult reason: other (Syncope) Chief complaint: Cardiac arrest Narrative: I was consulted to see Edward in cardiology consultation today as while he was waiting for his in the emergency room became unresponsive. He was found to have no pulse and CPR was initiated for 2 minutes. No rhythm was obtained at that time as thinks happen very quickly. Patient there was revived and since then has been doing well and has had no arrhythmias. Has pain at the site of the compression. Patient says that he has prior history of hypertension for which she takes lisinopril 20 mg. He said few days ago he started having symptoms with fever and shows he has not been eating and drinking well. He was diagnosed with flu. He had avoided working for few days and yesterday was taking care of his as she developed flu from him. She then developed respiratory distress and he called EMS and brought her to the emergency room. While waiting in the emergency room and while in the emergency room talking some when he stopped talking and became unresponsive with a going to respirations as noted. He was curry as per the ED physician. The pulse was noted and CPR was initiated. Unfortunately no rhythm strip was obtained. Patient had CPR for 2 minutes and subsequently has been admitted. Patient's mentation returned to normal and then compliance counsel showed 9 or sinus rhythm after that. Patient has no prior cardiac history. Patient has remained hemodynamically stable. This morning his blood pressure is elevated. Review of Systems Constitutional: Constitutional: Reports chills, Reports fever(s) and Reports poor appetite Eyes: Eyes: Reports no additional eye complaints Cardiovascular: Cardiovascular: Denies chest pain, Denies rapid heart rate, Denies lightheadedness, Reports Loss of Consciousness, Denies palpitations and Denies dyspnea Respiratory: Respiratory: Reports cough and Denies dyspnea Gastrointestinal: Gastrointestinal: Reports no additional gastrointestinal complaints Genitourinary: Genitourinary: Reports no additional male genitourinary complaints Musculoskeletal: Musculoskeletal: Reports no additional musculoskeletal complaints Integumentary/Breasts: Skin/Breast: Reports system reviewed and no additional complaints, except as docu Neurologic: Reports system reviewed and no additional complaints, except as documented Endocrine: Endocrine: Denies palpitations Hematologic/Lymphatic: Hematologic/Lymphatic: Reports no additional hematologic/lymphatic complaints Allergic/Immunologic: Allergic/Immunologic: Reports no additional allergic/immunologic complaints PMFSH Past Medical History Medical History HTN (hypertension) Social History Social History Household Members: Spouse Housing: House Do you presently have visiting nurse or other home services: No Patient Tobacco Use Status: Never used Tobacco Meds Allergies Allergy/AdvReac Type Severity Reaction Status Date / Time No Known Allergies Allergy Verified 07/24/23 22:02 Active Medications: Current Medications Acetaminophen (Acetaminophen 325 Mg Tablet) 650 mg PO Q6H PRN PRN Reason: Pain, Mild (Pain Scale 1-3) Enoxaparin Sodium (Enoxaparin Sodium 40 Mg/0.4 Ml Syringe) 40 mg SUBCUT DAILY [facility] Last Admin: 07/25/23 02:38 Dose: 40 mg Ketorolac Tromethamine (Ketorolac Tromethamine 15 Mg/Ml Vial) 15 mg IVPUSH Q6H PRN PRN Reason: Pain, Moderate(Pain Scale 4-6) Last Admin: 07/25/23 11:13 Dose: 15 mg Lisinopril (Lisinopril 20 Mg Tablet) 20 mg PO DAILY [facility]; Protocol Last Admin: 07/25/23 08:40 Dose: 20 mg Melatonin (Melatonin 3 Mg Tablet) 6 mg PO BEDTIME PRN PRN Reason: Insomnia Ondansetron HCl (Ondansetron Hcl 4 Mg/2 Ml Vial) 4 mg IVPUSH Q8H PRN PRN Reason: Nausea and Vomiting Oseltamivir Phosphate (Oseltamivir Phosphate 75 Mg Capsule) 75 mg PO Q12H [facility]PL[facility]ED [facility] Stop: 07/29/23 21:01 Last Admin: 07/25/23 08:43 Dose: 75 mg Sodium Chloride (0.9 % Sodium Chloride Flush 3 Ml Syringe) 3 ml IVFLUSH QSHIFT REPLACED BY [facility] Last Admin: 07/25/23 08:41 Dose: 3 ml Thiamine HCl (Thiamine Hcl 100 Mg Tablet) 100 mg PO DAILY [facility] Home Medications Medication Instructions Recorded Confirmed Last Taken Type ibuprofen 200 mg tablet 200 mg PO DAILY PRN Pain 07/25/23 07/25/23 Unknown History lisinopril 20 mg tablet 20 mg PO DAILY 07/25/23 07/25/23 07/24/23 History Physical Exam Vital Signs: Vital Signs: Last Vital Signs Temp 98.0 F 07/25/23 12:59 Pulse 88 07/25/23 12:59 Resp 20 07/25/23 12:59 BP 189/93 H 07/25/23 12:59 Pulse Ox 95 07/25/23 12:59 O2 Del Method Room Air 07/25/23 12:59 O2 Flow Rate 2 07/25/23 07:57 BMI result Body Mass Index 29.9 Const: General: cooperative, comfortable, no acute distress, alert, awake and anxious Nutritional Appearance: overweight Orientation/consciousness: patient oriented x3 HEENT: Head: Yes normocephalic and Yes atraumatic Neck: Neck: Yes trachea midline, Yes supple and Yes no JVD Resp: Effort & Inspection: normal respiratory effort Auscultation: clear to auscultation bilaterally Cardio: Jugular venous distension: no JVD Rate: regular rate Rhythm: regular rhythm Heart sounds: S1 normal heart sound present, S2 normal heart sound present, no click, no gallops, no murmurs and no rubs GI: Auscultation: normal bowel sounds Skin: General skin exam: no rashes or lesions noted Neuro: General: patient oriented x3 and no focal motor deficits Extrem: General: Yes no clubbing, cyanosis or edema Psych: Appearance: grossly normal Affect: Anxious affect present Objective Labs and Meds 07/25/23 05:36 07/25/23 05:36 Lab results: Laboratory Results - last 24 hr 07/24/23 07/24/23 07/24/23 22:08 22:12 22:20 WBC 6.7 RBC 4.03 L Hgb 13.8 L Hct 39.3 L MCV 97.5 MCH 34.2 H MCHC 35.1 RDW 12.7 Plt Count 140 L MPV 10.2 Immature Gran % (Auto) 1.2 H Neut % (Auto) 55.7 Lymph % (Auto) 27.1 [place] % (Auto) 12.9 H Eos % (Auto) 2.4 Baso % (Auto) 0.7 Lymph # (Auto) 1.8 [place] # (Auto) 0.9 Eos # (Auto) 0.2 Baso # (Auto) 0.1 Abs Immat Gran (auto) 0.08 H Absolute Neuts (auto) 3.7 Absolute Nucleated RBC 0.000 Nucleated RBC % (auto) 0.0 VBG pH 7.34 VBG pCO2 46 VBG pO2 41 VBG HCO3 25 VBG O2 Saturation 64.0 VBG Base Excess -0.6 Sodium 136 Potassium 3.1 L Chloride 101 Carbon Dioxide 23 Anion Gap 15 BUN 15 Creatinine 1.16 Estim Creat Clear Calc 65.3 Estimated GFR > 60 Random Glucose 151 H Lactic Acid 3.4 H* Lactic Acid F/U @ 2Hr Calcium 9.3 Magnesium 2.0 Total Bilirubin 0.3 Direct Bilirubin 0.1 AST 34 ALT 17 Alkaline Phosphatase 78 Troponin I High Sens 6.5 B-Natriuretic Peptide 35 Total Protein 7.5 Albumin 4.0 Procalcitonin 0.09 Urine Color Urine Appearance Urine pH Ur Specific [place] Urine Protein Urine Glucose (UA) Urine Ketones Urine Blood Urine Nitrite Ur Leukocyte Esterase Urine RBC Urine WBC Ur Squamous Epith Cells Urine Bacteria Hyaline Casts Urine Opiates Screen Urine Fentanyl Screen Ur Barbiturates Screen Ur Phencyclidine Scrn Ur Amphetamines Screen U Benzodiazepines Scrn Urine Cocaine Screen U Marijuana (THC) Screen Ethyl Alcohol 101 Influenza Type A (PCR) POSITIVE A Influenza Type B (PCR) NEGATIVE RSV RNA Qual (PCR) NEGATIVE SARS-CoV-2 RNA (RT-PCR) NEGATIVE 07/25/23 07/25/23 07/25/23 00:43 00:44 05:36 WBC 4.8 RBC 3.81 L Hgb 13.0 L Hct 36.8 L MCV 96.6 MCH 34.1 H MCHC 35.3 RDW 12.8 Plt Count 121 L MPV 10.2 Immature Gran % (Auto) Neut % (Auto) Lymph % (Auto) [place] % (Auto) Eos % (Auto) Baso % (Auto) Lymph # (Auto) [place] # (Auto) Eos # (Auto) Baso # (Auto) Abs Immat Gran (auto) Absolute Neuts (auto) Absolute Nucleated RBC 0.000 Nucleated RBC % (auto) 0.0 VBG pH VBG pCO2 VBG pO2 VBG HCO3 VBG O2 Saturation VBG Base Excess Sodium 137 Potassium 4.1 D Chloride 104 Carbon Dioxide 23 Anion Gap 14 BUN 12 Creatinine 0.88 Estim Creat Clear Calc 86.1 Estimated GFR > 60 Random Glucose 112 Lactic Acid Lactic Acid F/U @ 2Hr 1.9 Calcium 8.7 D Magnesium Total Bilirubin Direct Bilirubin AST ALT Alkaline Phosphatase Troponin I High Sens 7.9 7.1 B-Natriuretic Peptide Total Protein Albumin Procalcitonin Urine Color Yellow Urine Appearance Clear Urine pH 5.5 Ur Specific [place] >= 1.030 H Urine Protein Negative Urine Glucose (UA) Negative Urine Ketones Negative Urine Blood Trace H Urine Nitrite Negative Ur Leukocyte Esterase Negative Urine RBC 3-5 H Urine WBC 0-5 Ur Squamous Epith Cells 0-2 Urine Bacteria None Seen Hyaline Casts 0-2 Urine Opiates Screen Not Detected Urine Fentanyl Screen Not Detected Ur Barbiturates Screen Not Detected Ur Phencyclidine Scrn Not Detected Ur Amphetamines Screen Not Detected U Benzodiazepines Scrn Not Detected Urine Cocaine Screen Not Detected U Marijuana (THC) Screen POSITIVE H Ethyl Alcohol Influenza Type A (PCR) Influenza Type B (PCR) RSV RNA Qual (PCR) SARS-CoV-2 RNA (RT-PCR) EKG shows normal sinus rhythm with normal EKG Imaging Radiologist's impression: Impressions Chest X-Ray 07/24/23 22:10 IMPRESSION: No evidence for acute disease in the chest. Chest CTA 07/24/23 23:11 IMPRESSION: 1. No evidence of pulmonary embolism. 2. Fractures of the anterior right second through fifth ribs. VTE: negative. Assessment and Plan (1) Syncope: Status: Acute Witnessed syncope possible cardiac arrest as witnessed there was no pulse and ago no respirations. Patient however has no acute findings of myocardial ischemia. EKGs normal and troponin x4 normal BNP is in normal limits. It is possible this could be related to vasovagal syncope as he has had recent flu and poor oral intake and was orthostatic. Although this is unclear at this point time. Monitor for 1 more day. If there are no significant cardiac arrhythmias or any other symptoms will pursue outpatient workup to evaluate for structural heart disease and then follow-up with tilt-table test and possible implantable loop recorder. Will follow with you Procedures Date of Service Date of Service: 07/25/23
--- NOTE | 2023-07-25 16:29 | MHC.CM.PN ---
EMR REVIEWED, PT ADMITTED W/CARDIAC ARREST, CM MET W/PT IN 'S RM HE WAS VISITING IN RM [id number], PT AGREEABLE TO INTAKE AT 'S BEDSIDE AND DECLINES TO RETURN TO HIS ROOM. PT REPORTS HE LIVES W/, STILL WORKS [employer] AND DRIVES, PT IS FULLY INDEP W/ALL CARE DENIES USE OF DME/SERVICES AND GOAL IS HOME NO SERVICES AND PT WILL SELF TRNASPORT HIS CAR IS IN [facility] [address]. PT VERIFIES PCP IS NOHELIA TORRES W[facility], FULLY COVID VAXED AND HCP IS AND WILL BRING IN COPY OF NEW HCP/WILL.
[2023-07-25] MEDS: Thiamine HCL 100 MG TABLET PO (17:20)
[2023-07-26] MEDS: Ketorolac Tromethamine 15 MG/ML VIAL IVPUSH (04:37)
[2023-07-26 07:02] LABS: Hematocrit 34.9 % (42.0-52.0); Hemoglobin 12.5 g/dl (14.0-18.0); Mean Corpuscular HGB Conc 35.8 g/dl (31.0-36.0); Mean Corpuscular Hemoglobin 34.2 pg (27.0-33.0); Mean Corpuscular Volume 95.4 fL (80.0-98.0); Mean Platelet Volume 10.3 fL (9.4-12.4); Platelet Count 115 X10*3/uL (160-400); Red Blood Count 3.66 X10*6/uL (4.60-5.80); Red Cell Distribution Width 12.6 % (11.0-16.0); White Blood Count 3.7 X10*3/uL (4.8-10.8)
[2023-07-26 07:09] LABS: Anion Gap 14 (12-20); Blood Urea Nitrogen 13 mg/dL (9-16); Calcium 8.9 mg/dL (8.4-10.2); Carbon Dioxide 23 mmol/L (22-29); Chloride 102 mmol/L (96-108); Creatinine Clr Calc Pharmacy 95.9; Estimated Glomerular Filt Rate > 60; Glucose Fasting 102 mg/dL (60-99); Magnesium 1.7 mg/dL (1.6-2.6); Potassium 3.6 mmol/L (3.3-5.1); Sodium 135 mmol/L (135-145)
[2023-07-26 07:18] VITALS: BP 178/91; PULSE 65; RESP 18; TEMP 36.6; O2SAT 95
[2023-07-26] MEDS: Thiamine HCL 100 MG TABLET PO (08:13)
[2023-07-26] MEDS: Enoxaparin Sodium 40 MG/0.4 ML SYRINGE SUBCUT (08:13)
[2023-07-26] MEDS: Oseltamivir Phosphate 75 MG CAPSULE PO (08:13)
[2023-07-26] MEDS: lisinopriL 20 MG TABLET PO (08:13)
[2023-07-26] MEDS: 0.9 % Sodium Chloride Flush 3 ML SYRINGE IVFLUSH (08:14)
[2023-07-26 11:14] VITALS: BP 168/97; PULSE 82; RESP 18; TEMP 36.6; O2SAT 94
--- NOTE | 2023-07-26 11:30 | P.DS_ITS ---
DS: Providers Provider Date of Service: 07/26/23 Date of admission: 07/25/23 02:07 Primary care physician: Unknown Physician Consults: 07/25/23 02:20 Consult to Cardiology [place]ine [place]ing [place] [facility] [place] [facility] Reason for consultation: cardiac arrest Has provider been notified: Yes DS: Diagnosis Discharge Diagnosis (1) Syncope: Status: Acute DS: Summary Hospital Course Hospital Course: from initial hpi: 63-year-old male with pertinent history of essential hypertension on lisinopril who was in emergency department room with his , when he went unresponsive, he was found to have no pulse and resuscitated after 2 minutes of CPR. Patient states he was tested positive for flu 2 days prior to presentation. He has been feeling weak over the last 2 days. Patient found that his had difficulty breathing and could not go to the bathroom due to shortness of breath. He called EMS who got patient's to the ER. Patient accompanied his and was sitting in the emergency department room when mid sentence he stopped talking. Patient was unresponsive and found to have agonal respiration. And was not responding to tactile stimuli. No seizure activity was noted. As per ER provider, pupils with sluggish and there were no carotid or radial pulses. Patient was immediately moved to a stretcher and ACLS was initiated. ROSC obtained after 2 minutes of CPR. Patient's mentation returned to normal. He was normal sinus rhythm and placed on site monitor. Patient states he has never been hospitalized in the past since his tonsillectomy as a child. He is compliant with his lisinopril for essential hypertension. He does consume alcohol and smokes marijuana but no history of alcohol withdrawals. History of sudden cardiac in family. Patient could not be transferred to ICU due to lack of availability of ICU bed in the facility. Cardiology was consulted who said okay to admit to [facility]. hospital course: Patient was admitted for cardiac arrest/syncope. He was seen by Cardiology who recommended monitoring on telemetry for 24 hours, and following up outpatient for echocardiogram, stress test, implantable loop recorder. Patient had no ev ents on telemetry and will be discharged home to follow up with Cardiology as outpatient. For his multiple rib fractures due to CPR he was given symptomatic management. For alcohol dependence he did not have any withdrawal. For hypertension was continued on lisinopril and amlodipine 5 mg daily will be added. For flu he was given Tamiflu, though symptoms have resolved so no need to complete course. For acute hypokalemia received replacement. Time Attestation Discharge Coordination Time (in mins): 35 Quality: Safe Use of Opioids Does Pt have an Active Cancer Diagnosis on the Problem List?: No Quality: Stroke Does the patient have a stroke diagnosis?: No Physical Exam Vital Signs: Vital Signs: Last Vital Signs Temp 97.8 F 07/26/23 11:14 Pulse 82 07/26/23 11:14 Resp 18 07/26/23 11:14 BP 178/91 H 07/26/23 07:18 Pulse Ox 94 07/26/23 11:14 O2 Del Method Room Air 07/26/23 11:14 O2 Flow Rate 2 07/25/23 07:57 BMI result Body Mass Index 29.9 General: AO X 3, no acute distress Resp: CTA bilateral, no accessory muscles used CVS: S1,S2,RRR GI: soft, non tender, non distended Neuro: motor grossly intact, alert Psych: appropriate affect, appropriate insight DS: Data Data Completed and Pending Labs on day of discharge: Laboratory Results - last 24 hr 07/26/23 06:15 WBC 3.7 L RBC 3.66 L Hgb 12.5 L Hct 34.9 L MCV 95.4 MCH 34.2 H MCHC 35.8 RDW 12.6 Plt Count 115 L MPV 10.3 Absolute Nucleated RBC 0.000 Nucleated RBC % (auto) 0.0 Sodium 135 Potassium 3.6 Chloride 102 Carbon Dioxide 23 Anion Gap 14 BUN 13 Creatinine 0.79 Estim Creat Clear Calc 95.9 Estimated GFR > 60 Fasting Glucose 102 H Calcium 8.9 Magnesium 1.7 Preliminary micro results at discharge 07/24/23 22:24 Blood Culture - Preliminary Blood - Venous No growth after 24 hours. 07/24/23 22:20 Blood Culture - Preliminary Blood - Venous No growth after 24 hours. Discharge Plan Discharge Anticipated Discharge Date/Time: 07/26/23 11:26 Patient Disposition: Home, Self-Care Discharge Diagnosis: syncope vs cardiac arrest Referrals: Physician,Unknown J [Primary Care Provider] - 1 Week Discharge Medications: New amlodipine 5 mg tablet 5 mg PO DAILY Qty: 90 0RF Continued lisinopril 20 mg tablet 20 mg PO DAILY ibuprofen 200 mg Tablet 200 mg PO DAILY PRN (Reason: Pain) Discharge Orders: Discharge Order (Routine); Ordered 07/26/23 Ordered By: Sina Lezama Diet: Advance to usual diet Activity on Discharge: As tolerated Stand Alone Forms: Patient Portal Discharge page Care Plan Goals: recovery Health Concerns: syncope Plan of Treatment: follow up with cardiology for echo, stress test, implanable loop recorder Assessment: see above
--- NOTE | 2023-07-26 12:00 | PM.PNCARD ---
Subjective Subjective Date of Service: 07/26/23 Principal diagnosis: Syncope/possible cardiac arrest Interval history: Patient know overnight event. No high risk findings. Blood pressure is elevated. Says again did not sleep last night. Review of Systems Review of Systems Yes all other systems are reviewed and are negative Physical Exam Vital Signs: Last Vital Signs Temp 97.8 F 07/26/23 11:14 Pulse 82 07/26/23 11:14 Resp 18 07/26/23 11:14 BP 178/91 H 07/26/23 07:18 Pulse Ox 94 07/26/23 11:14 O2 Del Method Room Air 07/26/23 11:14 O2 Flow Rate 2 07/25/23 07:57 BMI result Body Mass Index 29.9 Const General: cooperative, comfortable, no acute distress, alert, awake and anxious Nutritional Appearance: overweight Orientation/consciousness: patient oriented x3 HEENT Head: Yes normocephalic and Yes atraumatic Neck Neck: Yes trachea midline, Yes supple and Yes no JVD Resp Effort & Inspection: normal respiratory effort Auscultation: clear to auscultation bilaterally Cardio Jugular venous distension: no JVD Rate: regular rate Rhythm: regular rhythm Heart sounds: S1 normal heart sound present, S2 normal heart sound present, no click, no gallops, no murmurs and no rubs GI Auscultation: normal bowel sounds Skin General skin exam: no rashes or lesions noted Neuro General: patient oriented x3 and no focal motor deficits Extrem General: Yes no clubbing, cyanosis or edema Psych Appearance: grossly normal Affect: Anxious affect present Objective Labs and Meds 07/26/23 06:15 07/26/23 06:15 Lab results: Laboratory Results - last 24 hr 07/26/23 06:15 WBC 3.7 L RBC 3.66 L Hgb 12.5 L Hct 34.9 L MCV 95.4 MCH 34.2 H MCHC 35.8 RDW 12.6 Plt Count 115 L MPV 10.3 Absolute Nucleated RBC 0.000 Nucleated RBC % (auto) 0.0 Sodium 135 Potassium 3.6 Chloride 102 Carbon Dioxide 23 Anion Gap 14 BUN 13 Creatinine 0.79 Estim Creat Clear Calc 95.9 Estimated GFR > 60 Fasting Glucose 102 H Calcium 8.9 Magnesium 1.7 Progress Note: A&P Assessment and plan (1) Syncope: Status: Acute Assessment and Plan: Patient with syncope question cardiac arrest. No pulse was noted when he had a loss of consciousness and a going to respirations. Events are not clear. No rhythm was obtained at that time. He has multiple risk factors for cardiac issues. Will pursue workup as outpatient including echocardiogram and myocardial perfusion imaging. If these are within normal limits patient will undergo implantable loop recorder placement. This was discussed with him. He understands agrees. Patient can be discharged home today. His blood pressure is elevated would add Norvasc 5 mg to his regimen. Advised for adequate rest at home and avoid alcohol use. Also advised to maintain adequate hydration. Will follow as outpatient Time Spent With Patient Time: Total time managing care of this patient today ____ minutes. Progress Note: Quality Stroke Does the patient have a stroke diagnosis?: No Procedures Date of Service Date of Service: 07/26/23
--- NOTE | 2023-07-26 13:16 | MHC.CM.PN ---
PT MEDICALLY CLEARED FOR DC HOME SELF-CARE, PT WILL SELF [facility]RNASPORT ([facility] [place]
[2023-07-29 07:41] LABS: Glucose, Whole Blood 142 mg/dL (60-115)
== END 2023-07-26 14:36 | disposition home or self-care (01) | DRG 297 ==
LOC: HO.ED 07-25 02:08 → HO.EDOVER 07-25 02:11 → HO.IMC 07-25 12:27
PROVIDERS: Admitting Provider Student in an Organized Health Care Education/Training Program; Emergency Provider Emergency Medicine; PCP Internal Medicine; Visit Provider Internal Medicine
DX: I46.9 Cardiac arrest, cause unspecified (principal); E87.21 Acute metabolic acidosis; M96.A3 Multiple fractures of ribs associated with chest compression and cardiopulmonary resuscitation; F10.20 Alcohol dependence, uncomplicated; J10.1 Influenza due to other identified influenza virus with other respiratory manifestations; Y90.5 Blood alcohol level of 100-119 mg/100 ml; I10 Essential (primary) hypertension; Z79.899 Other long term (current) drug therapy
CPT/HCPCS: 0241U; 36415; 71045; 71275; 80048; 80076; 80307; 81001; 82803; 82947; 83605; 83735; 83880; 84145; 84484; 85025; 85027; 87040; 93005; 99285; J1650; J1885; J3411; Q9967

== ENCOUNTER → 2023-07-24 22:02 | Outpatient (BNV) | payer OTHER, SELFPAY | PROVIDERS: Admitting Provider Student in an Organized Health Care Education/Training Program; Emergency Provider Emergency Medicine; Visit Provider Internal Medicine Cardiovascular Disease | DX: I46.9 Cardiac arrest, cause unspecified (principal) | CPT/HCPCS: 93010 ==

== ENCOUNTER → 2023-07-25 02:07 | Outpatient (BNV) | payer OTHER, SELFPAY | PROVIDERS: Admitting Provider Student in an Organized Health Care Education/Training Program; Emergency Provider Emergency Medicine; Visit Provider Student in an Organized Health Care Education/Training Program | DX: I46.9 Cardiac arrest, cause unspecified (principal); R55 Syncope and collapse | CPT/HCPCS: 99223; 99239; 99499 ==

== ENCOUNTER → 2023-07-25 02:07 | Outpatient (BNV) | payer OTHER, SELFPAY | PROVIDERS: Admitting Provider Student in an Organized Health Care Education/Training Program; Emergency Provider Emergency Medicine; Visit Provider Internal Medicine Cardiovascular Disease | DX: R55 Syncope and collapse (principal) | CPT/HCPCS: 99222; 99233 ==

== ENCOUNTER → 2023-07-29 09:06 | Outpatient (REF) | payer OTHER, SELFPAY ==
--- NOTE | ~2023-07-29 | NM_ITS ---
Exercise Myocardial perfusion study Indication: Syncope, possible cardiac arrest to rule out myocardial ischemia Technique: The patient was brought in for an exercise perfusion study on 07/29/2023. Patient performed exercise as per Lit protocol and was injected 30 mCi of sestamibi was given intravenously one target HR was achieved. Images were obtained using the SPECT gamma camera interlaced with the gating device. Images were obtained in supine position. Resting perfusion study was performed on 07/30/2023. Patient was administered 30 mCi of sestamibi intravenously at rest. Images were then obtained in supine position. Images obtained with and without CT attenuation. Total DLP 114 mGy-cm. Images were processed with the software and compared side to side in short axis, horizontal long axis and vertical long axis views. Findings: The stress perfusion study showed non attenuated images show mildly to moderately reduced uptake in the basal inferior wall of the LV myocardium. Remainder of the LV myocardium is normally perfused. Attenuation corrected images show normal uptake of radiotracer in all segments of LV myocardium. There is suggestion of possible left ventricular hypertrophy. The gated study shows normal LV systolic function with calculated LVEF of 57%. LV cavity is normal in size. The gated study shows normal systolic wall thickening and contraction of all segments. There is no transient ischemic dilation. Resting study shows non attenuated images show mildly to moderately reduced uptake in the basal inferior wall of the LV myocardium. Attenuation corrected images show moderately reduced uptake in the apex of the LV myocardium.. Gating at rest reveals normal systolic wall motion with ejection fraction at greater than 55%. The findings are consistent with normal myocardial perfusion. NM/NM cardiolite stress test Impression: 1. Normal myocardial perfusion 2. Gated LVEF is 57% 3. Transient ischemic dilatation not present Stress EKG is nondiagnostic for ischemia
--- NOTE | 2023-07-29 09:09 | CA_ITS ---
Acquisition Time: 2023-07-29 10:30:37 Total Exercise Time: 00:04:42 Test Indications: CARDIAC ARREST/CPR Medications: SEE H Protocol: HEIDE Max HR: 162 BPM 103% of Pred: 156 BPM Max BP: 218/102 mmHG Max Work Load: 4.6 METS Exercise stress test exercise 4 min 42 sec of Heide protocol stage 1 held with 20 sec of recovery walking to maintain heart rate achieving 96%, with mild SOB, no chest discomfort, with short run of atrial tach, with resting HTN and hypertensive response to exercise, without EKG changes. Blood pressure and breathing returned to baseline with rest. Nuclear images pending. Test reviewed with Dr. Velázquez. Referred By: Alonso Gandara Overread By: Aleyda Cortes
--- NOTE | 2023-07-29 09:09 | CA_ITS ---
Transthoracic Echocardiogram Patient (Last, First, Middle): Ja Epps F Gender: Male Date of : 1960 Age: 63 Procedure Date: 07/29/2023 Procedure Type: Transthoracic Echocardiogram Location: OP Height: 167.64 cm Weight: 83.92 kg BSA: 1.93 m2 Heart Rate: bpm BP: 130 / 90 mmHg Ostomy Care Nurse: TO Referring MD: Alonso Gandara MD Symptoms: I46.9 - Cardiac arrest, cause unspecified Study Quality: Fair/Contrast ECG Rhythm: Sinus Conclusions: - The left ventricular systolic function is normal. The calculated ejection fraction is 62% by biplane method. - Moderate focal hypertrophy of the basal septum. - No obvious valvular pathology seen on this study. - There is mild dilatation of the ascending aorta measuring 4.00 cm. Findings Procedure Information Contrast agent, definity, is being given per protocol without apparent complications. Left Ventricle Normal left ventricular cavity size. The left ventricular systolic function is normal. The calculated ejection fraction is 62% by biplane method. There is no evidence of regional wall motion abnormalities. Diastolic function is normal for age. Moderate focal hypertrophy of the basal septum. Right Ventricle Normal right ventricular cavity size and systolic function. Atria Both atria are normal in size. Aortic Valve There is a normal trileaflet aortic valve. There is mild calcification of the aortic valve. There is no aortic valve stenosis. There is trace (trivial) aortic valve regurgitation. Mitral Valve The mitral valve appears normal. There is no mitral valve regurgitation. There is no mitral valve stenosis. Pulmonic Valve The pulmonic valve is likely normal. Tricuspid Valve There is trace tricuspid valve regurgitation. There is no evidence of pulmonary hypertension. Great Vessels There is mild dilatation of the ascending aorta measuring 4.00 cm. Venous The inferior vena cava is normal in size and collapses greater than 50% with inspiration. Pericardium/Pleural There is no evidence of pericardial effusion. Prior Study Comparison No prior study available for comparison. Recommendations, Care & Conclusions No obvious valvular pathology seen on this study. Measurements 2D Linear Measurements IVSd: 1.58 0.6-0.9/0.6-1.0 cm LVIDd: 4.20 3.9-5.3/4.2-5.9 cm LVIDd Index: 2.18 2.4-3.2/2.2-3.1 cm/m2 LVIDs: 2.59 2.0-3.6 cm LVPWd: 0.98 0.7-1.1 cm LA Diam: 3.40 2.7-3.8/3.0-4.0 cm LAIDs Index: 1.76 1.5-2.3 cm/m2 LV Mass: 244.36 67-162/88-224 g LV Mass Index: 126.61 43-95/49-115 g/m2 LVOT Diam: 2.20 3.0+(-)1.3 cm 2D Systolic Function EF 4C: 60.10 >55% EF 2C: 63.70 >55% EF BiP: 62.30 >55% Mitral Valve MV Pk E: 0.47 MV PK A: 0.60 MV Decel Time: 256.00 E/A: 0.80 E'Lateral: 6.74 E'Medial: 5.11 E/E' Med: 9.20 E/E' Lat: 7.00 PHT: 75.00 MVA PHT: 2.93 Decel [place]: 1.84 Aortic Valve AoV Pk Live: 1.43 AoV Mn Live: 1.07 AoV VTI: 0.25 AoV Pk Grad: 8.00 Aov Mn Grad: 5.00 HILARY Cont.VTI: 3.48 LVOT LVOT Pk Live: 1.32 LVOT Mn Live: 0.76 LVOT VTI: 0.23 LVOT Pk Grad: 7.00 LVOT Mn Grad: 3.00 LVOT Diam: 2.20 LVOT Area: 3.80 Diastolic Function MV Pk E: 0.47 MV Pk A: 0.60 E/A: 0.80 E'Medial: 5.11 E/E' Med: 9.20 E' Laterial: 6.74 E/E' Lat: 7.00 Right Ventricle TAPSE (mm): 19.80 TVS' Live: 13.40 Tricuspid Valve TR Pk Live: 2.01 TR Pk Grad: 16.00 RA Press: 3.00 RVSP: 19.00 Great Vessels Aorta Sinus of Valsalva: 3.65 2.0-3.5 cm Ao Asc: 4.00 2.1-3.4 cm Updated in Other Vendor System with Status of Final Ramana Velázquez MD electronically signed on 07/31/2023 3:32:17 PM with status of Final
== END ==
LOC: HO.CARD 09:06
PROVIDERS: PCP Internal Medicine; Visit Provider Internal Medicine Cardiovascular Disease
DX: I46.9 Cardiac arrest, cause unspecified (principal); R55 Syncope and collapse
CPT/HCPCS: 78452; 93017; 93306; A9500; Q9957

== ENCOUNTER → 2023-07-29 09:09 | Outpatient (BNV) | payer OTHER, SELFPAY | PROVIDERS: PCP Internal Medicine; Visit Provider Nurse Practitioner | DX: R55 Syncope and collapse (principal) | CPT/HCPCS: 78452; 93016; 93018; 93350; 93352 ==

== ENCOUNTER 2023-08-20 12:07 | Outpatient (AMB) | payer OTHER, SELFPAY ==
--- NOTE | 2023-08-20 12:09 | MHC.PC.OV ---
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 Patient has concerns for blood pressure and states his , Nayely, takes his blood pressure for him with an automated one and his blood pressure fluctuates. 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 Operator Inside Required: No Accompanied by: Self / Same As Patient Allergies No Known Allergies Allergy (Verified 08/20/23 12:48) Medication List - Last Reconciled 08/20/23 by Princess Randle, PRIVATE DUTY NURSE- amlodipine 5 mg PO DAILY ibuprofen 200 mg PO DAILY PRN lisinopril 20 mg PO DAILY Tobacco use date assessed: 08/20/23 Fall risk assessment: No Falls in past year Last assessed Fall Risk: 08/20/23 Dental Screening Dental Screen Date: 08/20/23 Did you have a dental visit in the last 12 months?: Yes Did you have a dental problem in the last 6 months where you did not have access to dental care?: No Was dental information given to patient?: Patient has dentist HPI HPI Comments History of Present Illness Details 63-year-old male here today for hospital discharge follow up. He was admitted to [facility] on 07/24/2023 with a chief complaint of cardiac arrest. Chest x-ray done showed fractures of the anterior right 2nd through 5th ribs as a result of the CPR. He was found to be flu A positive Discharged home 07/26/23. Discharge Medications: New amlodipine 5 mg tablet 5 mg PO DAILY Qty: 90 0RF Recommended to follow up with cardiology for echo, stress test, implantable loop recorder Echo and stress test completed. WNL. Status post tonsillectomy Chronic medical conditions: Hypertension, ETOH use, marijuana use, dilation of the ascending aorta 4 cm (echocardiogram 07/29/2023) Ejection fraction 62% mild calcification of the aortic valve, trace aortic valve regurg. Moderate focal hypertrophy of the basal septum Here today feeling great. The pain from the broken ribs is better. Prior to this, was exercising light resistance and some cardio. Eager to return. Next week will have the loop recorder placed. Has no scheduled cardio f/u at this time. Taking all med as directed. Reports BP was elevated initially upon return home. However it has improved Health maintenance Today he declined a colonoscopy. Also declines Cologuard. Reports he has no family history and he feels fine. [facility] Medical History (Updated 08/20/23 @ 14:15 by Princess Randle [facility]) Arthritis Alcohol use Syncope Cardiac arrest HTN (hypertension) Surgical History (Updated 08/20/23 @ 12:27 by Avelina Gusman CMA) History of vasectomy History of tonsillectomy Family History (Updated 08/20/23 @ 12:29 by Avelina Gusman CMA) Daughter Bipolar 1 disorder Other Mental health disorder Social History (Updated 08/20/23 @ 12:26 by Avelina Gusman CMA) Household Members: Spouse Housing: House Do you presently have visiting nurse or other home services: No Alcohol intake: current Alcohol intake frequency: 0-2 drinks per day Alcohol type: beer Patient Tobacco Use Status: Former Tobacco user Tobacco use type: Cigarette Cigarettes Per Day: 1 Years Smoked: 20 e-Cigarette/Vaping Use: Never Used service: No Current occupational status: employed Current occupation: [employer] Current occupational exposures/hazards: No Sexual orientation: Unable to collect Gender identity: Unable to collect Cognitive needs: No Hearing needs: No Vision needs: Yes (wears glasses) Questionnaire PHQ-9 Over the last 2 weeks, how often have you been bothered by any of the following problems? 1. Little interest or pleasure in doing things: not at all 2. Feeling down, depressed, or hopeless: not at all 3. Trouble falling or staying asleep, or sleeping too much: not at all 4. Feeling tired or having little energy: not at all 5. Poor appetite or overeating: not at all 6. Feeling bad about yourself - or that you are a failure or have let yourself or your family down: not at all 7. Trouble concentrating on things, such as reading the newspaper or watching television: not at all 8. Moving or speaking so slowly that other people could have noticed. Or the opposite - being so fidgety or restless that you have been moving around a lot more than usual: not at all 9. Thoughts that you would be better off or of hurting yourself in some way: not at all Total score: 0 Depression Screening Interpretation: Negative Depression Screening Done: Yes 91350 - PHQ-9 Billing: Yes Source: Developed by Drs. Javi James, Mónica Lowe, David Aguilar and colleagues, with an educational adelfo from [email or web address]. Thrive Questionnaire Date Thrive assessed: 08/20/23 I am a: Patient What is your living situation today?: I have a steady place to live Within the past 12 months, did the food you bought not last and you didn't have the money to get more?: Never true Within the past 12 months, did you worry whether your food would run out before you got money to buy more?: Never true Do you have trouble paying for medicines?: No Do you have trouble getting transportation to medical appointments?: No Do you have trouble paying your heating and electricity bill?: No Do you have trouble taking care of your child, family member or friend?: No Do you have trouble with day-to-day activities such as bathing, preparing meals, shopping, managing finances, etc.?: No Are you currently unemployed and looking for a job?: No Are you interested in more education?: No Please select the resources that you would like help with: None Currently or been in a relationship where the following occur: no concerns reported THRIVE Score: 0 AUDIT C Alcohol Use Questionnaire (AUDIT-C) 1. How often do you have a drink containing alcohol?: 4 or more times a week 2. How many drinks containing alcohol do you have on a typical day when you are drinking?: 1 or 2 3. How often do you have six or more drinks on one occasion?: Never Total Score: 4 Score Reviewed/Action Taken: Yes ZAID-7 AMB Questionnaire ZAID-7 Date ZAID - 7 assessed: 08/20/23 Feeling nervous, anxious, or on edge: 0 = Not at all Not being able to stop or control worryin = Not at all Worrying too much about different things: 0 = Not at all Trouble relaxin = Not at all Being so restless that it is hard to sit still: 0 = Not at all Becoming easily annoyed or irritable: 0 = Not at all Feeling afraid as if something awful might happen: 0 = Not at all Total ZAID-7 score (0-4 normal; 5-9 mild; 10-14 moderate; 15-21 severe): 0 Source: Developed by Drs. Javi James, Mónica Lowe, David Aguilar and colleagues, with an educational adelfo from [email or web address]. ZAID-7 Assessment Billing ZAID-7 Assessment Tool: ZAID-7 Assessment 96720 Review of Systems Const All systems reviewed & are unremarkable except as noted in HPI and below Physical exam (Primary Care) Vital Signs: Last Vital Signs Pulse 88 08/20/23 12:11 Resp 13 08/20/23 12:11 BP 108/68 08/20/23 12:11 Pulse Ox 98 08/20/23 12:11 Oxygen Delivery Method Room Air 08/20/23 12:11 BMI result Body Mass Index 30.8 BMI Assessment/Plan discussion: High BMI High, discussed plan: lifestyle Tobacco/Smoking Status: Tobacco use Status Tobacco use date assessed 08/20/23 08/20/23 12:18 Patient Tobacco Use Status Former Tobacco user 08/20/23 12:26 Tobacco use type Cigarette 08/20/23 12:26 e-Cigarette/Vaping Use Never Used 08/20/23 12:26 PHQ-9: PHQ-9 Score PHQ-9: Total score 0 08/20/23 12:41 Depression Screening Interpretation: Negative Thrive Assessment: Date of Thrive Assessment Date Thrive assessed 08/20/23 08/20/23 12:22 Currently or been in a relationship where the following occur: no concerns reported Advance Care Planning discussion: Exists, not on file Date of discussion: 08/20/23 Who was present: self Forms completed: Health Care Proxy and Living will Time spent: 1-15 minutes, not on file Const Other: awake alert NAD scleras nonicteric bilat MMM RRR - distant and hard to appreciate LS CTAB BLE with trace edema, varicose veins, hairless, skin intact Assessment and Plan Assessment & Plan (1) Hospital discharge follow-up: Code(s): Z09 - Encounter for follow-up examination after completed treatment for conditions other than malignant neoplasm (2) HTN (hypertension): Comment: Goal less than 130/80 Tolerating compliant of amlodipine 5 mg daily, lisinopril 20 mg daily. Advised to monitor blood pressure 3 times per week bring log to next appointment. Code(s): I10 - Essential (primary) hypertension Qualifiers: Hypertension type: primary hypertension Qualified Code(s): I10 - Essential (primary) hypertension (3) Ascending aorta dilatation: Comment: (echocardiogram 07/29/2023) dilation of the ascending aorta 4 cm Ejection fraction 62% mild calcification of the aortic valve, trace aortic valve regurg. Moderate focal hypertrophy of the basal septum Code(s): I77.810 - Thoracic aortic ectasia (4) Aortic valve calcification: Comment: (echocardiogram 07/29/2023) dilation of the ascending aorta 4 cm Ejection fraction 62% mild calcification of the aortic valve, trace aortic valve regurg. Moderate focal hypertrophy of the basal septum Code(s): I35.9 - Nonrheumatic aortic valve disorder, unspecified (5) PAD (peripheral artery disease): Comment: Based on clinical exam. We will need to update lipid profile and consider starting a statin at the next office visit. Monitor skin integrity. Code(s): I73.9 - Peripheral vascular disease, unspecified Plan This note is constructed using voice recognition software. While every effort has been made to ensure accuracy in pet nutrition specialist, still errors may have been included Sometimes, these errors may affect the content or meaning of the given sentence . Total time spent caring for the patient today was 60 minutes. This includes time spent before the visit reviewing the chart, time spent during the visit, and time spent after the visit on documentation Orders: Orders Comprehensive [place]. Panel Fast 10/10/23 I10 - Essential (primary) hypertension TSH reflex Free T4 10/10/23 I10 - Essential (primary) hypertension Complete Blood Count no Diff 10/10/23 I10 - Essential (primary) hypertension Lipid Panel 10/10/23 I10 - Essential (primary) hypertension Hemoglobin A1c 10/10/23 I10 - Essential (primary) hypertension Microalbumin, Random (w Creat) 10/10/23 I10 - Essential (primary) hypertension Vitamin D 1,25 dihydroxy 10/10/23 I10 - Essential (primary) hypertension PSA, Ultra Sensitive 10/10/23 I10 - Essential (primary) hypertension Vitamin B12 and Folate 10/10/23 I10 - Essential (primary) hypertension Patient Instructions: Return to office in October. Please have labs done 1 week prior to this visit. Please ensure your medical records are here prior to this visit so that I may review. Return to office sooner if needed. Review Patient declined Colonoscopy: 08/20/23 Patient declined Colon Cancer Screen Lab: 08/20/23 Coding Level of Care Code New Pt Level 5 (75265) Diagnoses Hospital discharge follow-up Z09 Primary hypertension I10 Hypertension type: primary hypertension Ascending aorta dilatation I77.810 Aortic valve calcification I35.9 PAD (peripheral artery disease) I73.9 Additional Codes ZAID-7 Assessment Billing - ZAID-7 Assessment Tool: ZAID-7 Assessment 53514 ([id number]) Vital Signs *Quality* - Advance Care Planning discussion: Exists, not on file ([id number]) Vital Signs *Quality* - Time spent: 1-15 minutes, not on file ([id number])
[2023-08-20 12:11] VITALS: BP 108/68; PULSE 88; RESP 13; O2SAT 98; BMI 30.8
== END 2023-08-20 16:02 | disposition home or self-care (01) ==
PROVIDERS: PCP Internal Medicine; Visit Provider Nurse Practitioner Family
DX: I77.810 Thoracic aortic ectasia (principal); I73.9 Peripheral vascular disease, unspecified; Z09 Encounter for follow-up examination after completed treatment for conditions other than malignant neoplasm; I10 Essential (primary) hypertension; I35.9 Nonrheumatic aortic valve disorder, unspecified; Z00.00 Encounter for general adult medical examination without abnormal findings
CPT/HCPCS: 1123F; 99205

== ENCOUNTER 2023-09-04 12:34 | Outpatient (REF) | payer OTHER, SELFPAY ==
[2023-09-04 12:40] VITALS: BP 147/92; PULSE 88; RESP 18; O2SAT 97; BMI 29.0
--- NOTE | 2023-09-04 13:20 | PM.OP ---
Brief Operative Note Date of Service: 09/04/23 Pre-op diagnosis: Syncope Post-op diagnosis: same Procedure: Placement of implantable loop recorder Implants: After obtaining full consent patient was in the minor surgery suite. Patient was then laid on the operating table in supine position. Patient is precordial area was then prepped and draped in a sterile fashion. Patient was then given 2% lidocaine with epinephrine intradermally and subcutaneously in the 4th intercostal space. A [employer] implantable loop recorder with serial [id number] was then implanted in the subcutaneous space using modified Seldinger technique. The wound was then closed with Steri-Strips and pressure dressing applied. Surgeon: Alonso Gandara MD Anesthesia: local Was an Logger All Round used for this Procedure?: No Estimated blood loss (mL): 3 Pathology: none sent Condition: stable Disposition: same day
== END 2023-09-04 12:35 | disposition home or self-care (01) ==
LOC: HO.MS 12:34
PROVIDERS: PCP Internal Medicine; Visit Provider Internal Medicine Cardiovascular Disease
PROC: (CPT 33285; principal; 2023-09-04 13:00)
DX: R55 Syncope and collapse (principal)
CPT/HCPCS: 33285; C1764

== ENCOUNTER → 2023-09-04 12:34 | Outpatient (BNV) | payer OTHER, SELFPAY | PROVIDERS: PCP Internal Medicine; Visit Provider Internal Medicine Cardiovascular Disease | DX: R55 Syncope and collapse (principal) | CPT/HCPCS: 33285 ==

== ENCOUNTER 2023-09-21 08:20 | Outpatient (AMB) | payer OTHER, SELFPAY ==
[2023-09-21 08:25] VITALS: BP 140/72; PULSE 91; BMI 29.9
--- NOTE | 2023-09-21 08:25 | MHC.OFFVIS ---
Vital Signs 09/21/23 08:25 Height 5 ft 6 in Weight 185 lb 3.013 oz BMI 29.9 BP 140/72 H Blood Pressure Location Lt brachial Position Sitting Pulse 91 Pulse Source Pulse Oximeter Intake Visit Reasons: r/s 09/11/23 post ilr wound check Spice Grinder Required: No Allergies No Known Allergies Allergy (Verified 09/21/23 08:28) Medication List - Last Reconciled 09/21/23 by Asia Wells NP-C amlodipine 5 mg PO DAILY lisinopril 20 mg PO DAILY HPI HPI r/s 09/11/23 post ilr wound check: Details: Ja is a 63-year-old male with past medical history of hypertension, peripheral artery disease who recently had a witnessed cardiac arrest while in the emergency room visiting his . Cardiac rhythm strips were not obtained at that time. He did undergo 2 minutes of CPR. It was evaluated by Dr. Gandara in consultation. An inpatient echocardiogram and stress test were done without significant abnormalities. An implanted loop recorder was placed and he now presents for follow-up. Today he reports he has been feeling very well since his hospital discharge. He has not had any lightheadedness, presyncope, syncope, falls. He has no chest discomfort at rest or with activity. He denies shortness of breath, PND, orthopnea or edema. He reports good activity tolerance. He is only been doing light activities since his discharge and until his testing is complete. He did not do the tilt-table test and does not feel it is necessary. His loop recorder site is feeling good. [facility] Medical History Arthritis Alcohol use Syncope Cardiac arrest HTN (hypertension) Surgical History History of vasectomy History of tonsillectomy Family History Daughter Bipolar 1 disorder Other Mental health disorder Social History Household Members: Spouse Housing: House Do you presently have visiting nurse or other home services: No Alcohol intake: current Alcohol intake frequency: 0-2 drinks per day Alcohol type: beer Patient Tobacco Use Status: Former Tobacco user Tobacco use type: Cigarette Cigarettes Per Day: 1 Years Smoked: 20 e-Cigarette/Vaping Use: Never Used service: No Current occupational status: employed Current occupation: [employer] Current occupational exposures/hazards: No Sexual orientation: Unable to collect Gender identity: Unable to collect Cognitive needs: No Hearing needs: No Vision needs: Yes (wears glasses) Review of Systems Const All systems reviewed & are unremarkable except as noted in HPI and below ENT Denies dizziness Card Denies chest pain, Denies chest pain at rest, Denies chest pain with activity, Denies rapid heart rate, Denies pedal edema, Denies edema, Denies leg edema, Denies lightheadedness, Denies palpitations, Denies dyspnea, Denies dyspnea on exertion and Denies orthopnea Resp Denies cough, Denies dyspnea and Denies dyspnea on exertion GI Denies hematochezia and Denies change in stool character Musc Denies abnormal gait, Denies limited range of motion, Denies muscle cramps, Denies muscle weakness, Denies numbness, Denies radiating pain into limb, Denies stiffness and Denies tingling Neuro Denies abnormal gait, Denies dizziness, Denies numbness and Denies tingling Endo Denies palpitations Physical Exam Vital Signs: Last Vital Signs Pulse 91 09/21/23 08:25 BP 140/72 H 09/21/23 08:25 BMI result Body Mass Index 29.9 Const General: cooperative, healthy appearing, comfortable and no acute distress Orientation/consciousness: patient oriented x3 Neck Neck: Yes normal visual inspection and Yes no JVD Chest Other: ILR site with steristrips that are loose - strips removed, incision well aproximated, small scan along incision, no redness, swelling or drainage. Chest palpation & inspection: normal inspection of the chest Resp Effort & Inspection: normal respiratory effort Auscultation: clear to auscultation bilaterally, no crackles, no rales, no rhonchi and no wheezes Cardio Jugular venous distension: no JVD Rate: regular rate Rhythm: regular rhythm Heart sounds: S1 normal heart sound present, S2 normal heart sound present, no murmurs and no rubs Neuro General: patient oriented x3 Extrem General: Yes normal to inspection, No no pedal edema and No calf tenderness Psych Appearance: grossly normal Mental Status: mental status grossly normal Speech and movement: Normal speech and movement present Assessment & Plan Assessment & Plan (1) Visit for wound check: Code(s): Z51.89 - Encounter for other specified aftercare Category: Medical Plan: Implanted loop recorder placed by Dr. Gandara on 2023. Wound check today shows Steri-Strips falling off, gently removed and incision well approximated. Small scab noted at incision line. No signs of infection noted. Instructed patient on wound care. (2) Cardiac arrest: Code(s): I46.9 - Cardiac arrest, cause unspecified Category: Medical Plan: Witnessed cardiac arrest [place] [facility] his . Notes reviewed. Patient became unresponsive, agonal respirations, curry color, no pulse. No ECG strips obtained of the event. Patient did have CPR for 2 minutes and started to arouse. He did not require intubation. He was placed then on awake overnight monitor and admitted for further evaluation. During his admission he did not have any documented arrhythmia. His echocardiogram showed EF 62%, no valve abnormalities, moderate focal basal septal hypertrophy. He had an exercise nuclear stress test with exercise 4 minutes 42 seconds, mild shortness of breath, no chest discomfort, brief atrial tach noted, normal myocardial perfusion imaging. Today he reports he has been feeling very well since his hospital discharge. He has not had any lightheadedness, presyncope, syncope. He has no known cardiac history. He has cardiac risk factors of hypertension and peripheral artery disease. He had been ill with influenza prior to the event. It is possible that his event was syncopal in nature. He did have an implanted loop recorder placed on 09/04/2023. He is now hooked to remote monitoring. Loop recorder site is healing well. Will arrange for office visit in 3-4 months to reassess for any concerning symptoms. (3) Syncope: Code(s): R55 - Syncope and collapse Category: Medical Plan: As above (4) Ascending aorta dilatation: Comment: (echocardiogram 07/29/2023) dilation of the ascending aorta 4 cm Ejection fraction 62% mild calcification of the aortic valve, trace aortic valve regurg. Moderate focal hypertrophy of the basal septum Code(s): I77.810 - Thoracic aortic ectasia Category: Medical Plan: Mild dilation noted on last echo (5) Aortic valve calcification: Comment: (echocardiogram 07/29/2023) dilation of the ascending aorta 4 cm Ejection fraction 62% mild calcification of the aortic valve, trace aortic valve regurg. Moderate focal hypertrophy of the basal septum Code(s): I35.9 - Nonrheumatic aortic valve disorder, unspecified Category: Medical Plan: Mild aortic calcification noted on last echo (6) Hospital discharge follow-up: Code(s): Z09 - Encounter for follow-up examination after completed treatment for conditions other than malignant neoplasm Category: Medical Plan: As above Patient Instructions: Time spent on chart review, documentation, interview and assessment Coding Level of Care Code Est Pt Level 4 (74469) Diagnoses Visit for wound check Z51.89 Cardiac arrest I46.9 Syncope R55 Ascending aorta dilatation I77.810 Aortic valve calcification I35.9 Hospital discharge follow-up Z09 Time Spent (min) 28
== END 2023-09-21 09:01 | disposition home or self-care (01) ==
PROVIDERS: PCP Nurse Practitioner Family; Visit Provider Nurse Practitioner Family
DX: I46.9 Cardiac arrest, cause unspecified (principal); R55 Syncope and collapse; I77.810 Thoracic aortic ectasia; I35.9 Nonrheumatic aortic valve disorder, unspecified
CPT/HCPCS: 99214

== ENCOUNTER → 2023-09-21 08:20 | Outpatient (BNVA) | payer OTHER, SELFPAY | PROVIDERS: PCP Nurse Practitioner Family; Visit Provider Nurse Practitioner Family ==

== ENCOUNTER 2023-10-15 06:39 | Outpatient (REF) | payer OTHER, SELFPAY ==
[2023-10-15 07:35] LABS: Hematocrit 39.2 % (42.0-52.0); Hemoglobin 13.7 g/dl (14.0-18.0); Mean Corpuscular HGB Conc 34.9 g/dl (31.0-36.0); Mean Corpuscular Volume 97.3 fL (80.0-98.0); Mean Platelet Volume 10.2 fL (9.4-12.4); Platelet Count 191 X10*3/uL (160-400); Red Blood Count 4.03 X10*6/uL (4.60-5.80); Red Cell Distribution Width 13.8 % (11.0-16.0); White Blood Count 4.9 X10*3/uL (4.8-10.8)
[2023-10-15 07:45] LABS: Estimated Average Glucose 108 mg/dL; Hemoglobin A1c % 5.4 % (<6.0)
[2023-10-15 07:53] LABS: Microalbum/Creatinine Ratio Ur 13.4 ug/mg cr (<30)
[2023-10-15 08:04] LABS: Alanine Aminotransferase 10 U/L (0-40); Albumin Level 4.2 g/dL (3.5-5.0); Alkaline Phosphatase 66 U/L (39-117); Anion Gap 12 (12-20); Aspartate Amino Transferase 19 U/L (5-37); Bilirubin Total 0.5 mg/dL (0.0-1.0); Blood Urea Nitrogen 30 mg/dL (9-16); Calcium 9.5 mg/dL (8.4-10.2); Carbon Dioxide 26 mmol/L (22-29); Chloride 104 mmol/L (96-108); Cholesterol 239 mg/dL (<200); Estimated Glomerular Filt Rate > 60; Glucose Fasting 96 mg/dL (60-99); HDL Cholesterol 97 mg/dL (>40); LDL Cholesterol Calculated 102 mg/dL (<100); Potassium 4.4 mmol/L (3.3-5.1); Sodium 138 mmol/L (135-145); Total Protein 7.2 g/dL (6.5-8.0); Triglycerides 202 mg/dL (<150)
[2023-10-15 08:35] LABS: Folate 3.3 ng/mL (> or = 4.0); Vitamin B12 249 pg/mL (200-900)
[2023-10-20 21:33] LABS: PSA, Ultra Sensitive 0.29 ng/mL
[2023-10-22 15:49] LABS: VITAMIN D (1,25 OH) D3 25 pg/mL; Vit D (1,25-Dihydroxy) Total 25 pg/mL (18-72); Vitamin D (1,25 OH) D2 <8 pg/mL
== END 2023-10-15 06:40 | disposition home or self-care (01) ==
LOC: HO.LAB 06:39
PROVIDERS: PCP Nurse Practitioner Family; Visit Provider Nurse Practitioner Family
DX: I10 Essential (primary) hypertension (principal); Z12.5 Encounter for screening for malignant neoplasm of prostate
CPT/HCPCS: 36415; 80053; 80061; 82043; 82570; 82607; 82652; 82746; 83036; 84153; 84443; 85027

== ENCOUNTER 2023-10-22 09:53 | Outpatient (AMB) | payer OTHER, SELFPAY ==
[2023-10-22 10:08] VITALS: BP 126/78; PULSE 72; RESP 14; TEMP 36.6; O2SAT 99; BMI 29.4
--- NOTE | 2023-10-22 10:08 | A.OFFPC_ITS ---
Vital Signs 10/22/23 10:08 Height 5 ft 6 in Weight 182 lb 6 oz BMI 29.4 BP 126/78 Blood Pressure Location Rt brachial Position Sitting Respiration 14 Pulse 72 Pulse Source Pulse Oximeter Temp 97.8 F Temp Source Temporal Artery Scan Pulse Oximetry (%) 99 Oxygen Delivery Method Room Air Intake Visit Reasons: f/u on chronic conditions Intake Note: Patient would like refill on amlodipine. Residence Director Required: No Accompanied by: Self / Same As Patient Allergies No Known Allergies Allergy (Verified 10/22/23 10:55) Medication List - Last Reconciled 10/22/23 by Princess Randle, PORTFOLIO ARCHITECT- amlodipine 5 mg PO DAILY lisinopril 20 mg PO DAILY Tobacco use date assessed: 08/20/23 Fall risk assessment: No Falls in past year Last assessed Fall Risk: 10/22/23 Dental Screening Dental Screen Date: 08/20/23 HPI HPI Comments History of Present Illness Details 63-year-old male s/p cardiac arrest 07/23, fractures of the anterior right 2nd through 5th ribs as a result of the CPR, HTN, ETOH use, marijuana use, dilation of the ascending aorta 4 cm (echocardiogram 07/29/2023), b12 anemia, Hyperlipidemia, Vit D def Status post tonsillectomy Specialists: [facility] Maintenance: 07/2023 Ejection fraction 62% mild calcif ication of the aortic valve, trace aortic valve regurg. Moderate focal hypertrophy of the basal septum Colon: declines. Tdap 2013 -->>> will need to update at next visit Here today for routine f/u of chronic conditions. Since last visit, had loop recorder placed; Cards consult reviewed. Labs reviewed w/ him today Labs 10/15/2023 show anemia RBC 4.03, hemoglobin 13.7, hematocrit 39.2, elevated MCH 34, normal RDW, normal electrolytes, BUN 30, creatinine 0.99, GFR greater than 60, hemoglobin A1c 5.4%, normal LFTs, total cholesterol 239, triglycerides 202, LDL 102, HDL 97, low normal B12 249, low folate 3.3, normal TSH, normal urine microalbumin creatinine ratio, PSA normal and vitamin-D 25 Plan: Declines statin at this time, will trial diet & repeat labs before next visit. He is active. Start OTC B vitamins and Vit D supplement, this can be found in a MVI however be sure there is thiamine, b12 and vitamin d Will need to repeat these labs in the future BP well controlled on current meds, cont FU with Cards as directed RTO in 3 months w/ repeat FASTING labs 1 week before to f/u on chronic conditions, sooner as needed. [facility] Medical History Arthritis Alcohol use Syncope Cardiac arrest HTN (hypertension) Surgical History History of vasectomy History of tonsillectomy Family History Daughter Bipolar 1 disorder Other Mental health disorder Social History Household Members: Spouse Housing: House Do you presently have visiting nurse or other home services: No Alcohol intake: current Alcohol intake frequency: 0-2 drinks per day Alcohol type: beer Patient Tobacco Use Status: Former Tobacco user Tobacco use type: Cigarette Cigarettes Per Day: 1 Years Smoked: 20 e-Cigarette/Vaping Use: Never Used service: No Current occupational status: employed Current occupation: [employer] Current occupational exposures/hazards: No Sexual orientation: Unable to collect Gender identity: Unable to collect Cognitive needs: No Hearing needs: No Vision needs: Yes (wears glasses) Questionnaire Thrive Questionnaire Date Thrive assessed: 08/20/23 ZAID-7 AMB Questionnaire ZAID-7 Date ZAID - 7 assessed: 08/20/23 Source: Developed by Drs. Javi James, Mónica Lowe, David Aguilar and colleagues, with an educational adelfo from [employer]. Review of Systems Const All systems reviewed & are unremarkable except as noted in HPI and below Physical exam (Primary Care) Vital Signs: Last Vital Signs Temp 97.8 F 10/22/23 10:08 Pulse 72 10/22/23 10:08 Resp 14 10/22/23 10:08 BP 126/78 10/22/23 10:08 Pulse Ox 99 10/22/23 10:08 Oxygen Delivery Method Room Air 10/22/23 10:08 BMI result Body Mass Index 29.4 Tobacco/Smoking Status: Tobacco use Status Tobacco use date assessed 08/20/23 10/22/23 10:08 Patient Tobacco Use Status Former Tobacco user 10/22/23 10:08 Tobacco use type Cigarette 10/22/23 10:08 e-Cigarette/Vaping Use Never Used 10/22/23 10:08 Thrive Assessment: Date of Thrive Assessment Date Thrive assessed 08/20/23 10/22/23 10:08 Const Other: awake alert NAD scleras nonicteric bilat MMM RRR - distant and hard to appreciate, implantable recorded L chest LS CTAB BLE with trace edema, varicose veins, hairless, skin intact Assessment and Plan Assessment & Plan (1) HTN (hypertension): Comment: Goal less than 130/80 Tolerating compliant of amlodipine 5 mg daily, lisinopril 20 mg daily. Code(s): I10 - Essential (primary) hypertension Qualifiers: Hypertension type: primary hypertension Qualified Code(s): I10 - Essential (primary) hypertension (2) Hyperlipidemia: Comment: LDL goal < 70 Code(s): E78.5 - Hyperlipidemia, unspecified Qualifiers: Hyperlipidemia type: mixed hyperlipidemia Qualified Code(s): E78.2 - Mi xed hyperlipidemia (3) B12 deficiency anemia: Comment: likely related to etoh use Code(s): D51.9 - Vitamin B12 deficiency anemia, unspecified Qualifiers: Vitamin B12 deficiency anemia type: other dietary B12 deficiency Qualified Code(s): D51.3 - Other dietary vitamin B12 deficiency anemia (4) Vitamin D deficiency: Code(s): E55.9 - Vitamin D deficiency, unspecified Plan: This note is constructed using voice recognition software. While every effort has been made to ensure accuracy in solar mechanical engineer, still errors may have been included Sometimes, these errors may affect the content or meaning of the given sentence . Total time spent caring for the patient today was 41 minutes. This includes time spent before the visit reviewing the chart, time spent during the visit, and time spent after the visit on documentation Orders: Orders Lipid Panel 01/11/24 D51.9 - Vitamin B12 deficiency anemia, unspecified, E78.5 - Hyperlipidemia, unspecified, I10 - Essential (primary) hypertension Complete Blood Count no Diff 01/11/24 D51.9 - Vitamin B12 deficiency anemia, unspecified, E78.5 - Hyperlipidemia, unspecified, I10 - Essential (primary) hypertension Vitamin B12 and Folate 01/11/24 D51.9 - Vitamin B12 deficiency anemia, unspecified, E78.5 - Hyperlipidemia, unspecified, I10 - Essential (primary) hypertension Comprehensive [place]. Panel Fast 01/11/24 D51.9 - Vitamin B12 deficiency anemia, unspecified, E78.5 - Hyperlipidemia, unspecified, I10 - Essential (primary) hypertension Medications: Refilled amlodipine 5 mg PO DAILY 90 tabs 0RF Patient Instructions: Start b12 1000mcg supplement (lozenge, chewable, tablet) take one daily first thing in the morning, on empty stomach. Can also try a Multivitamin or complex B vitamin ... need to be sure there is b12 1000 mcg in it and b9 (thiamine) as you are deficient. Plan: Declines statin at this time, will trial diet & repeat labs before next visit. He is active. Start OTC B vitamins and Vit D supplement, this can be found in a MVI however be sure there is thiamine, b12 and vitamin d Will need to repeat these labs in the future BP well controlled on current meds, cont FU with Cards as directed RTO in 3 months w/ repeat FASTING labs 1 week before to f/u on chronic conditions, sooner as needed. Coding Level of Care Code Est Pt Level 5 (37460) Diagnoses Primary hypertension I10 Hypertension type: primary hypertension Mixed hyperlipidemia E78.2 Hyperlipidemia type: mixed hyperlipidemia Other dietary vitamin B12 deficiency anemia D51.3 Vitamin B12 deficiency anemia type: other dietary B12 deficiency Vitamin D deficiency E55.9
== END 2023-10-22 11:14 | disposition home or self-care (01) ==
PROVIDERS: PCP Nurse Practitioner Family; Visit Provider Nurse Practitioner Family
DX: I10 Essential (primary) hypertension (principal); E78.2 Mixed hyperlipidemia; D51.3 Other dietary vitamin B12 deficiency anemia; E55.9 Vitamin D deficiency, unspecified
CPT/HCPCS: 99215

== ENCOUNTER → 2023-11-09 23:59 | Outpatient (BNV) | payer OTHER, SELFPAY ==
--- NOTE | 2023-12-31 15:55 | MHC.OFFVIS ---
Intake Visit Reasons: Remote ILR check- [employer] Allergies No Known Allergies Allergy (Verified 12/11/23 08:39) PFSH Medical History Arthritis Alcohol use Syncope Cardiac arrest HTN (hypertension) Surgical History History of vasectomy History of tonsillectomy Family History Daughter Bipolar 1 disorder Other Mental health disorder Social History Household Members: Spouse Housing: House Do you presently have visiting nurse or other home services: No Alcohol intake: current Alcohol intake frequency: 0-2 drinks per day Alcohol type: beer Patient Tobacco Use Status: Former Tobacco user Tobacco use type: Cigarette Cigarettes Per Day: 1 Years Smoked: 20 e-Cigarette/Vaping Use: Never Used service: No Current occupational status: employed Current occupation: [employer] Current occupational exposures/hazards: No Sexual orientation: Unable to collect Gender identity: Unable to collect Cognitive needs: No Hearing needs: No Vision needs: Yes (wears glasses) Office Procedures Cardiac Device Check Cardiac Device Check Details: Remote implantable loop recorder report generated 11/09/2023. No arrhythmias or pauses noted [id number] Cardiac Interrogation, subcut cardiac rhythm monitor Procedure code (CPT) selection complete Assessment & Plan Assessment & Plan (1) Implantable loop recorder present: Code(s): Z95.818 - Presence of other cardiac implants and grafts Category: Medical Plan: See above Coding Level of Care Code Procedure Only Diagnoses Implantable loop recorder present Z95.818 CPT Codes Cardiac Device Check - Cardiac Device 16: [id number] Cardiac Interrogation, subcut cardiac rhythm monitor ([id number])
== END ==
PROVIDERS: PCP Nurse Practitioner Family; Visit Provider Internal Medicine Cardiovascular Disease
DX: Z45.09 Encounter for adjustment and management of other cardiac device (principal)
CPT/HCPCS: 93298

== ENCOUNTER → 2023-12-09 23:59 | Outpatient (BNV) | payer OTHER, SELFPAY ==
--- NOTE | 2023-12-16 13:59 | MHC.OFFVIS ---
Intake Visit Reasons: Remote ILR check- [employer] Allergies No Known Allergies Allergy (Verified 12/11/23 08:39) PFSH Medical History Arthritis Alcohol use Syncope Cardiac arrest HTN (hypertension) Surgical History History of vasectomy History of tonsillectomy Family History Daughter Bipolar 1 disorder Other Mental health disorder Social History Household Members: Spouse Housing: House Do you presently have visiting nurse or other home services: No Alcohol intake: current Alcohol intake frequency: 0-2 drinks per day Alcohol type: beer Patient Tobacco Use Status: Former Tobacco user Tobacco use type: Cigarette Cigarettes Per Day: 1 Years Smoked: 20 e-Cigarette/Vaping Use: Never Used service: No Current occupational status: employed Current occupation: [employer] Current occupational exposures/hazards: No Sexual orientation: Unable to collect Gender identity: Unable to collect Cognitive needs: No Hearing needs: No Vision needs: Yes (wears glasses) Office Procedures Cardiac Device Check Cardiac Device Check Details: Remote implantable loop recorder report generated 12/09/2023. No events noted [id number] Cardiac Interrogation, subcut cardiac rhythm monitor Procedure code (CPT) selection complete Assessment & Plan Assessment & Plan (1) Implantable loop recorder present: Code(s): Z95.818 - Presence of other cardiac implants and grafts Category: Medical Plan: See above Coding Level of Care Code Procedure Only Diagnoses Implantable loop recorder present Z95.818 CPT Codes Cardiac Device Check - Cardiac Device 16: [id number] Cardiac Interrogation, subcut cardiac rhythm monitor ([id number])
== END ==
PROVIDERS: PCP Nurse Practitioner Family; Visit Provider Internal Medicine Cardiovascular Disease
DX: Z45.09 Encounter for adjustment and management of other cardiac device (principal)
CPT/HCPCS: 93298

== ENCOUNTER 2023-12-11 08:25 | Outpatient (AMB) | payer OTHER, SELFPAY ==
[2023-12-11 08:36] VITALS: BP 132/70; PULSE 86; BMI 29.2
--- NOTE | 2023-12-11 08:36 | A.OFFVIS_ITS ---
Vital Signs 12/11/23 08:36 Height 5 ft 6 in Weight 181 lb 3.52 oz BMI 29.2 BP 132/70 Blood Pressure Location Lt brachial Position Sitting Pulse 86 Pulse Source Pulse Oximeter Intake Visit Reasons: 3m follow up Maturity Checker Required: No Allergies No Known Allergies Allergy (Verified 12/11/23 08:39) Medication List - Last Reconciled 12/11/23 by Alonso Gandara MD amlodipine 5 mg PO DAILY lisinopril 20 mg PO DAILY HPI Comments Details: Ja comes for follow-up. He has no new cardiac symptoms. Maintains now heavy vigorous exercise routine for himself. Denies any exertional chest pain or shortness of breath. No syncopal events. No prolonged palpitation irregular heartbeat. Comes for his INR check. Blood pressures been well controlled. His LDL was mildly elevated 102 mg/dL. No heart failure symptoms. [facility] Medical History Arthritis Alcohol use Syncope Cardiac arrest HTN (hypertension) Surgical History History of vasectomy History of tonsillectomy Family History Daughter Bipolar 1 disorder Other Mental health disorder Social History Household Members: Spouse Housing: House Do you presently have visiting nurse or other home services: No Alcohol intake: current Alcohol intake frequency: 0-2 drinks per day Alcohol type: beer Patient Tobacco Use Status: Former Tobacco user Tobacco use type: Cigarette Cigarettes Per Day: 1 Years Smoked: 20 e-Cigarette/Vaping Use: Never Used service: No Current occupational status: employed Current occupation: [employer] Current occupational exposures/hazards: No Sexual orientation: Unable to collect Gender identity: Unable to collect Cognitive needs: No Hearing needs: No Vision needs: Yes (wears glasses) Review of Systems ENT Reports dizziness Card Denies chest pain, Denies chest pain at rest, Denies chest pain with activity, Denies rapid heart rate, Denies pedal edema, Denies edema, Denies leg edema, Denies lightheadedness, Denies palpitations, Denies dyspnea, Denies dyspnea on exertion and Denies orthopnea Resp Denies cough, Denies dyspnea and Denies dyspnea on exertion GI Denies hematochezia and Denies change in stool character Musc Denies abnormal gait, Reports limited range of motion, Reports muscle cramps, Denies muscle weakness, Denies numbness, Denies radiating pain into limb, Denies stiffness and Denies tingling Neuro Denies abnormal gait, Reports dizziness, Denies numbness and Denies tingling Endo Denies palpitations Physical Exam Vital Signs: Last Vital Signs Pulse 86 12/11/23 08:36 BP 132/70 12/11/23 08:36 BMI result Body Mass Index 29.2 Const General: cooperative, healthy appearing, comfortable and no acute distress Orientation/consciousness: patient oriented x3 Neck Neck: Yes normal visual inspection and Yes no JVD Chest Other: ILR site with steristrips that are loose - strips removed, incision well aproximated, small scan along incision, no redness, swelling or drainage. Chest palpation & inspection: normal inspection of the chest Resp Effort & Inspection: normal respiratory effort Auscultation: clear to auscultation bilaterally, no crackles, no rales, no rhonchi and no wheezes Cardio Jugular venous distension: no JVD Rate: regular rate Rhythm: regular rhythm Heart sounds: S1 normal heart sound present, S2 normal heart sound present, no murmurs and no rubs Neuro General: patient oriented x3 Extrem General: Yes normal to inspection, No no pedal edema and No calf tenderness Psych Appearance: grossly normal Mental Status: mental status grossly normal Speech and movement: Normal speech and movement present Assessment & Plan Assessment & Plan (1) Cardiac arrest: Code(s): I46.9 - Cardiac arrest, cause unspecified Category: Medical Plan: Patient with syncopal episode while in the emergency room felt to be due to cardiac arrest. Was brief resuscitated successfully in the emergency room. No rhythm strip. He has implantable loop recorder in place. There been no events so far including no pauses or ventricular arrhythmias. His structure of the heart is normal by testing. Will continue monitor implantable loop recorder every 3 months remotely. Will follow up in the clinic in 1 year's time. If he has no recurrent events will consider removal of implantable loop recorder at that point in time. It seems like this might have been a vasovagal/orthostatic syncope. (2) Ascending aorta dilatation: Comment: (echocardiogram 07/29/2023) dilation of the ascending aorta 4 cm Ejection fraction 62% mild calcification of the aortic valve, trace aortic valve regurg. Moderate focal hypertrophy of the basal septum Code(s): I77.810 - Thoracic aortic ectasia Category: Medical Plan: Ascending aortic aneurysm/dilatation 4 cm. Follow-up echocardiogram in 1 year's time. Aggressive risk factor modification was discussed. Continue aggressive blood pressure control. Goal blood pressure less than 130/84. Advised to monitor blood pressure at home and maintain a log. Goal LDL less than 100 mg/dL. He is currently participate in aggressive lifestyle modification. Avoid sudden strenuous isometric exercise. (3) HTN (hypertension): Comment: Goal less than 130/80 Tolerating compliant of amlodipine 5 mg daily, lisinopril 20 mg daily. Code(s): I10 - Essential (primary) hypertension Category: Medical Qualifiers: Hypertension type: primary hypertension Qualified Code(s): I10 - Essential (primary) hypertension Plan: Hypertension which is currently well optimized advised to monitor blood pressure at home maintain a log. Goal blood pressure less than 130/84. Low-salt diet was discussed advised to maintain activity level as tolerated. Will follow up in the clinic in 1 year's time, sooner p.r.n.. Thank you for allowing me to partake in his care Orders: Orders CA echo transthoracic complete 1 Year I77.810 - Thoracic aortic ectasia Medications: New lisinopril 20 mg PO DAILY 90 tabs 3RF Coding Level of Care Code Est Pt Level 4 (19803) Diagnoses Cardiac arrest I46.9 Ascending aorta dilatation I77.810 Primary hypertension I10 Hypertension type: primary hypertension
== END 2023-12-11 09:00 | disposition home or self-care (01) ==
PROVIDERS: PCP Nurse Practitioner Family; Visit Provider Internal Medicine Cardiovascular Disease
DX: I46.9 Cardiac arrest, cause unspecified (principal); I77.810 Thoracic aortic ectasia; I10 Essential (primary) hypertension
CPT/HCPCS: 99214

== ENCOUNTER → 2023-12-11 08:25 | Outpatient (BNVA) | payer OTHER, SELFPAY | PROVIDERS: PCP Nurse Practitioner Family; Visit Provider Internal Medicine Cardiovascular Disease ==

== ENCOUNTER → 2024-01-08 23:59 | Outpatient (BNV) | payer OTHER, SELFPAY ==
--- NOTE | 2024-01-21 10:13 | A.OFFVIS_ITS ---
Intake Visit Reasons: Remote ILR check- [employer] Allergies No Known Allergies Allergy (Verified 01/14/24 12:59) PFSH Medical History Arthritis Alcohol use Syncope Cardiac arrest HTN (hypertension) Surgical History History of vasectomy History of tonsillectomy Family History Daughter Bipolar 1 disorder Other Mental health disorder Social History Household Members: Spouse Housing: House Do you presently have visiting nurse or other home services: No Alcohol intake: current Alcohol intake frequency: 0-2 drinks per day Alcohol type: beer Patient Tobacco Use Status: Former Tobacco user Tobacco use type: Cigarette Cigarettes Per Day: 1 Years Smoked: 20 e-Cigarette/Vaping Use: Never Used service: No Current occupational status: employed Current occupation: [employer] Current occupational exposures/hazards: No Sexual orientation: Unable to collect Gender identity: Unable to collect Cognitive needs: No Hearing needs: No Vision needs: Yes (wears glasses) Office Procedures Cardiac Device Check Cardiac Device Check Details: Remote implantable loop recorder report generated 01/08/2024. No atrial fibr illation pauses noted. Total burden of PVCs 0.2%. I was requested to read this study on 01/21/2024. [id number]-Ddxzjf Cardiac Interrogation, subcut cardiac rhythm monitor Procedure code (CPT) selection complete Assessment & Plan Assessment & Plan (1) Implantable loop recorder present: Code(s): Z95.818 - Presence of other cardiac implants and grafts Category: Medical Plan: See above Coding Level of Care Code Procedure Only Diagnoses Implantable loop recorder present Z95.818 CPT Codes Cardiac Device Check - Cardiac Device 16: [id number]-Hiyoem Cardiac Interrogation, subcut cardiac rhythm monitor ([id number])
== END ==
PROVIDERS: PCP Nurse Practitioner Family; Visit Provider Internal Medicine Cardiovascular Disease
DX: I49.3 Ventricular premature depolarization (principal); Z95.818 Presence of other cardiac implants and grafts
CPT/HCPCS: 93298

== ENCOUNTER 2024-01-14 12:20 | Outpatient (AMB) | payer OTHER, SELFPAY ==
--- NOTE | 2024-01-14 12:57 | MHC.PC.OV ---
Vital Signs 01/14/24 12:59 Height 5 ft 6 in Weight 183 lb 8 oz BMI 29.6 BP 138/74 Blood Pressure Location Rt brachial Position Sitting Respiration 16 Pulse 65 Pulse Source Pulse Oximeter Pulse Oximetry (%) 99 Oxygen Delivery Method Room Air Intake Visit Reasons: f/u htn Intake Note: follow up on hypertension Allergies No Known Allergies Allergy (Verified 01/14/24 12:59) Tobacco use date assessed: 08/20/23 Dental Screening Dental Screen Date: 08/20/23 HPI HPI Comments History of Present Illness Details 64-year-old male s/p cardiac arrest 07/24/2023, fractures of the anterior right 2nd through 5th ribs as a result of the CPR, HTN, ETOH use, marijuana use, 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 Moderate focal hypertrophy of the basal septumColon: declines. Tdap 01/2024 Here today for routine f/u of chronic conditions. Cont to be active w/ Cards. Since last visit, had loop recorder placed; Cards consult reviewed. ILR which has not picked up any events. Consult notes reviewed. Annual fu and echo to monitor the ascending aorta dilation. He cont to offer no cardiac complaints. Cont to be active. Eating a well balanced diet. Taking b12 supplement but not Vitamin D or MVI Due for repeat fasting labs. Was not able to get done prior to today's visit but will get them done in the next week or so. Bp well controlled on current regimen. Denies cough or edema in BLE. Vaccines: due for Tdap, will get today. Will get flu and covid at local pharmacy. Considering Shingles vaccine, too. No falls, ED or hospital visits since last visit here. Exam: awake alert NAD scleras nonicteric bilat MMM RRR - distant and hard to appreciate, implantable recorded L chest LS CTAB BLE with trace edema, varicose veins, hairless, skin intact Plan: Tdap vaccine today. Get flu and COVID vaccine at local pharmacy. Consider shingles vaccine as well. Get fasting labs done in the next week or so to evaluate your lipid profile. At this time not on a statin or cholesterol lowering medication. Continue lifestyle modifications of healthy diet and exercise. In regards to the vitamin deficiencies, at this time continue to take the B12 1000 mcg. We will advise further on any additional vitamins needed after repeat labs were done. As mentioned at the last visit could consider a multivitamin that includes thiamine, B12 and vitamin-D. BP well controlled on current meds, cont FU with Cards as directed RTO in July f/u on chronic conditions, sooner as needed. This note is constructed using voice recognition software. While every effort has been made to ensure accuracy in agency sales development associate, still errors may have been included Sometimes, these errors may affect the content or meaning of the given sentence . Total time spent caring for the patient today was 30 minutes. This includes time spent before the visit reviewing the chart, time spent during the visit, and time spent after the visit on documentation COUNTS INCLUDE 234 BEDS AT THE [facility] Medical History Arthritis Alcohol use Syncope Cardiac arrest HTN (hypertension) Surgical History History of vasectomy History of tonsillectomy Family History Daughter Bipolar 1 disorder Other Mental health disorder Social History Household Members: Spouse Housing: House Do you presently have visiting nurse or other home services: No Alcohol intake: current Alcohol intake frequency: 0-2 drinks per day Alcohol type: beer Patient Tobacco Use Status: Former Tobacco user Tobacco use type: Cigarette Cigarettes Per Day: 1 Years Smoked: 20 e-Cigarette/Vaping Use: Never Used service: No Current occupational status: employed Current occupation: [employer] Current occupational exposures/hazards: No Sexual orientation: Unable to collect Gender identity: Unable to collect Cognitive needs: No Hearing needs: No Vision needs: Yes (wears glasses) Questionnaire Thrive Questionnaire Date Thrive assessed: 08/20/23 ZAID-7 AMB Questionnaire ZAID-7 Date ZAID - 7 assessed: 08/20/23 Source: Developed by Drs. Javi James, Mónica Lowe, David Aguilar and colleagues, with an educational adelfo from [facility]. Physical exam (Primary Care) Vital Signs: Last Vital Signs Pulse 65 01/14/24 12:59 Resp 16 01/14/24 12:59 BP 138/74 01/14/24 12:59 Pulse Ox 99 01/14/24 12:59 Oxygen Delivery Method Room Air 01/14/24 12:59 BMI result Body Mass Index 29.6 Tobacco/Smoking Status: Tobacco use Status Tobacco use date assessed 08/20/23 01/14/24 13:01 Patient Tobacco Use Status Former Tobacco user 01/14/24 13:01 Tobacco use type Cigarette 01/14/24 13:01 e-Cigarette/Vaping Use Never Used 01/14/24 13:01 Thrive Assessment: Date of Thrive Assessment Date Thrive assessed 08/20/23 01/14/24 13:01 Immunizations Boostrix Tdap 2.5 Lf unit-8 mcg-5 Lf/0.5 mL intramuscular syringe Performing Provider: DELLA Sr Performing Location: [facility] Administered by: Ashley Edwards RN on 01/14/24 13:46 Dose Route Admin Location Dispensed Lot Number Expiration Date NDC Speaker Wirer 0.5 mL IM Left Deltoid 0.5 mL [id number] 02/16/26 02668-601-12 [employer] VIS Given Date VIS Provided VIS Publication Date 01/14/24 Single Vaccine 20 Eligibility Eligibility Date Funding Source Not [facility] Eligible 01/14/24 Private Assessment and Plan Assessment & Plan (1) Vitamin D deficiency: Code(s): E55.9 - Vitamin D deficiency, unspecified (2) B12 deficiency anemia: Comment: likely related to etoh use Code(s): D51.9 - Vitamin B12 deficiency anemia, unspecified Qualifiers: Vitamin B12 deficiency anemia type: other dietary B12 deficiency Qualified Code(s): D51.3 - Other dietary vitamin B12 deficiency anemia (3) Hyperlipidemia: Comment: LDL goal < 70 Code(s): E78.5 - Hyperlipidemia, unspecified Qualifiers: Hyperlipidemia type: mixed hyperlipidemia Qualified Code(s): E78.2 - Mixed hyperlipidemia (4) PAD (peripheral artery disease): Comment: Based on clinical exam. Monitor skin integrity. Code(s): I73.9 - Peripheral vascular disease, unspecified (5) HTN (hypertension): Comment: Goal less than 130/80 Tolerating compliant of amlodipine 5 mg daily, lisinopril 20 mg daily. Code(s): I10 - Essential (primary) hypertension Qualifiers: Hypertension type: primary hypertension Qualified Code(s): I10 - Essential (primary) hypertension (6) Implantable loop recorder present: Code(s): Z95.818 - Presence of other cardiac implants and grafts Orders: Orders TDaP Immunization Today Z23 - Encounter for immunization Coding Level of Care Code Est Pt Level 4 (15595) Diagnoses Vitamin D deficiency E55.9 Other dietary vitamin B12 deficiency anemia D51.3 Vitamin B12 deficiency anemia type: other dietary B12 deficiency Mixed hyperlipidemia E78.2 Hyperlipidemia type: mixed hyperlipidemia PAD (peripheral artery disease) I73.9 Primary hypertension I10 Hypertension type: primary hypertension Implantable loop recorder present Z95.818
[2024-01-14 12:59] VITALS: BP 138/74; PULSE 65; RESP 16; O2SAT 99; BMI 29.6
== END 2024-01-14 13:47 | disposition home or self-care (01) ==
PROVIDERS: PCP Nurse Practitioner Family; Visit Provider Nurse Practitioner Family
DX: E55.9 Vitamin D deficiency, unspecified (principal); D51.3 Other dietary vitamin B12 deficiency anemia; E78.2 Mixed hyperlipidemia; I73.9 Peripheral vascular disease, unspecified; I10 Essential (primary) hypertension; Z95.818 Presence of other cardiac implants and grafts; Z23 Encounter for immunization
CPT/HCPCS: 90471; 90715; 99214

== ENCOUNTER 2024-02-05 07:39 | Outpatient (REF) | payer OTHER, SELFPAY ==
[2024-02-05 08:31] LABS: Hematocrit 39.1 % (42.0-52.0); Hemoglobin 13.6 g/dl (14.0-18.0); Mean Corpuscular HGB Conc 34.8 g/dl (31.0-36.0); Mean Corpuscular Hemoglobin 33.6 pg (27.0-33.0); Mean Corpuscular Volume 96.5 fL (80.0-98.0); Mean Platelet Volume 10.1 fL (9.4-12.4); Platelet Count 201 X10*3/uL (160-400); Red Blood Count 4.05 X10*6/uL (4.60-5.80); White Blood Count 4.7 X10*3/uL (4.8-10.8)
[2024-02-05 09:16] LABS: Alanine Aminotransferase 13 U/L (0-40); Albumin Level 4.1 g/dL (3.5-5.0); Alkaline Phosphatase 73 U/L (39-117); Anion Gap 14 (12-20); Aspartate Amino Transferase 19 U/L (5-37); Bilirubin Total 0.5 mg/dL (0.0-1.0); Blood Urea Nitrogen 22 mg/dL (9-16); Calcium 9.3 mg/dL (8.4-10.2); Carbon Dioxide 26 mmol/L (22-29); Chloride 102 mmol/L (96-108); Cholesterol 232 mg/dL (<200); Estimated Glomerular Filt Rate > 60; Glucose Fasting 98 mg/dL (60-99); HDL Cholesterol 103 mg/dL (>40); LDL Cholesterol Calculated 99 mg/dL (<100); Potassium 4.5 mmol/L (3.3-5.1); Sodium 137 mmol/L (135-145); Total Protein 7.1 g/dL (6.5-8.0); Triglycerides 152 mg/dL (<150); Vitamin D 25-OH Total 31.4 ng/mL (>30)
[2024-02-05 09:30] LABS: Vitamin B12 329 pg/mL (200-900)
[2024-02-05 10:18] LABS: Folate 4.3 ng/mL (> or = 4.0)
== END 2024-02-05 07:40 | disposition home or self-care (01) ==
LOC: HO.LAB 07:39
PROVIDERS: PCP Nurse Practitioner Family; Visit Provider Nurse Practitioner Family
DX: E78.5 Hyperlipidemia, unspecified (principal); D51.9 Vitamin B12 deficiency anemia, unspecified; I10 Essential (primary) hypertension; E55.9 Vitamin D deficiency, unspecified
CPT/HCPCS: 36415; 80053; 80061; 82306; 82607; 82746; 85027

== ENCOUNTER → 2024-02-07 23:59 | Outpatient (BNV) | payer OTHER, SELFPAY ==
--- NOTE | 2024-02-17 11:44 | MHC.OFFVIS ---
Intake Visit Reasons: Remote ILR check- [employer] Allergies No Known Allergies Allergy (Verified 01/14/24 12:59) PFSH Medical History Arthritis Alcohol use Syncope Cardiac arrest HTN (hypertension) Surgical History History of vasectomy History of tonsillectomy Family History Daughter Bipolar 1 disorder Other Mental health disorder Social History Household Members: Spouse Housing: House Do you presently have visiting nurse or other home services: No Alcohol intake: current Alcohol intake frequency: 0-2 drinks per day Alcohol type: beer Patient Tobacco Use Status: Former Tobacco user Tobacco use type: Cigarette Cigarettes Per Day: 1 Years Smoked: 20 e-Cigarette/Vaping Use: Never Used service: No Current occupational status: employed Current occupation: [employer] Current occupational exposures/hazards: No Sexual orientation: Unable to collect Gender identity: Unable to collect Cognitive needs: No Hearing needs: No Vision needs: Yes (wears glasses) Office Procedures Cardiac Device Check Cardiac Device Check Details: Remote implantable loop recorder report generated 02/07/2024. I was requested to read this study today. No pauses or sustained arrhythmias noted. Rare PVCs noted at 0.2% burden [id number]-Wsrtmq Cardiac Interrogation, subcut cardiac rhythm monitor Procedure code (CPT) selection complete Assessment & Plan Assessment & Plan (1) Implantable loop recorder present: Code(s): Z95.818 - Presence of other cardiac implants and grafts Category: Medical Plan: See above Coding Level of Care Code Procedure Only Diagnoses Implantable loop recorder present Z95.818 CPT Codes Cardiac Device Check - Cardiac Device 16: [id number] Cardiac Interrogation, subcut cardiac rhythm monitor ([id number])
== END ==
PROVIDERS: PCP Nurse Practitioner Family; Visit Provider Internal Medicine Cardiovascular Disease
DX: I49.3 Ventricular premature depolarization (principal); Z95.818 Presence of other cardiac implants and grafts
CPT/HCPCS: 93298

== ENCOUNTER → 2024-03-08 23:59 | Outpatient (BNV) | payer OTHER, SELFPAY ==
--- NOTE | 2024-03-14 17:01 | MHC.OFFVIS ---
Intake Visit Reasons: Remote ILR check- [employer] Allergies No Known Allergies Allergy (Verified 01/14/24 12:59) PFSH Medical History Arthritis Alcohol use Syncope Cardiac arrest HTN (hypertension) Surgical History History of vasectomy History of tonsillectomy Family History Daughter Bipolar 1 disorder Other Mental health disorder Social History Household Members: Spouse Housing: House Do you presently have visiting nurse or other home services: No Alcohol intake: current Alcohol intake frequency: 0-2 drinks per day Alcohol type: beer Patient Tobacco Use Status: Former Tobacco user Tobacco use type: Cigarette Cigarettes Per Day: 1 Years Smoked: 20 e-Cigarette/Vaping Use: Never Used service: No Current occupational status: employed Current occupation: [employer] Current occupational exposures/hazards: No Sexual orientation: Unable to collect Gender identity: Unable to collect Cognitive needs: No Hearing needs: No Vision needs: Yes (wears glasses) Office Procedures Cardiac Device Check Cardiac Device Check Details: Remote implantable loop recorder report generated 03/08/2024. No episodes of atrial fibrillation pauses noted. Rare PVCs noted with total burden of 0.4% [id number]-Knrrwm Cardiac Interrogation, subcut cardiac rhythm monitor Procedure code (CPT) selection complete Assessment & Plan Assessment & Plan (1) Implantable loop recorder present: Code(s): Z95.818 - Presence of other cardiac implants and grafts Category: Medical Plan: See above Coding Level of Care Code Procedure Only Diagnoses Implantable loop recorder present Z95.818 CPT Codes Cardiac Device Check - Cardiac Device 16: [id number]-Gmnqvh Cardiac Interrogation, subcut cardiac rhythm monitor ([id number])
== END ==
PROVIDERS: PCP Nurse Practitioner Family; Visit Provider Internal Medicine Cardiovascular Disease
DX: Z45.09 Encounter for adjustment and management of other cardiac device (principal)
CPT/HCPCS: 93298

== ENCOUNTER → 2024-04-07 23:59 | Outpatient (BNV) | payer OTHER, SELFPAY ==
--- NOTE | 2024-04-19 16:20 | A.OFFVIS_ITS ---
Intake Visit Reasons: Remote ILR check- [employer] Allergies No Known Allergies Allergy (Verified 01/14/24 12:59) PFSH Medical History Arthritis Alcohol use Syncope Cardiac arrest HTN (hypertension) Surgical History History of vasectomy History of tonsillectomy Family History Daughter Bipolar 1 disorder Other Mental health disorder Social History Household Members: Spouse Housing: House Do you presently have visiting nurse or other home services: No Alcohol intake: current Alcohol intake frequency: 0-2 drinks per day Alcohol type: beer Patient Tobacco Use Status: Former Tobacco user Tobacco use type: Cigarette Cigarettes Per Day: 1 Years Smoked: 20 e-Cigarette/Vaping Use: Never Used service: No Current occupational status: employed Current occupation: [employer] Current occupational exposures/hazards: No Sexual orientation: Unable to collect Gender identity: Unable to collect Cognitive needs: No Hearing needs: No Vision needs: Yes (wears glasses) Office Procedures Cardiac Device Check Cardiac Device Check Details: Remote implantable loop recorder report generated 04/07/2024. No atrial fib rillation or pauses noted. Rare burden of PVCs noted 25402-Uppwzz Cardiac Interrogation, subcut cardiac rhythm monitor Procedure code (CPT) selection complete Assessment & Plan Assessment & Plan (1) Implantable loop recorder present: Code(s): Z95.818 - Presence of other cardiac implants and grafts Category: Medical Plan: See above Coding Level of Care Code Procedure Only Diagnoses Implantable loop recorder present Z95.818 CPT Codes Cardiac Device Check - Cardiac Device 16: [id number]-Yxtecd Cardiac Interrogation, subcut cardiac rhythm monitor ([id number])
== END ==
PROVIDERS: PCP Nurse Practitioner Family; Visit Provider Internal Medicine Cardiovascular Disease
DX: I49.3 Ventricular premature depolarization (principal); Z95.818 Presence of other cardiac implants and grafts
CPT/HCPCS: 93298

== ENCOUNTER → 2024-05-07 23:59 | Outpatient (BNV) | payer OTHER, SELFPAY ==
--- NOTE | 2024-05-10 16:13 | MHC.OFFVIS ---
Intake Visit Reasons: Remote ILR check- [employer] Allergies No Known Allergies Allergy (Verified 01/14/24 12:59) PFSH Medical History Arthritis Alcohol use Syncope Cardiac arrest HTN (hypertension) Surgical History History of vasectomy History of tonsillectomy Family History Daughter Bipolar 1 disorder Other Mental health disorder Social History Household Members: Spouse Housing: House Do you presently have visiting nurse or other home services: No Alcohol intake: current Alcohol intake frequency: 0-2 drinks per day Alcohol type: beer Patient Tobacco Use Status: Former Tobacco user Tobacco use type: Cigarette Cigarettes Per Day: 1 Years Smoked: 20 e-Cigarette/Vaping Use: Never Used service: No Current occupational status: employed Current occupation: [employer] Current occupational exposures/hazards: No Sexual orientation: Unable to collect Gender identity: Unable to collect Cognitive needs: No Hearing needs: No Vision needs: Yes (wears glasses) Office Procedures Cardiac Device Check Cardiac Device Check Details: Remote implantable loop recorder report generated 05/07/2024. No arrhythmias or pauses noted. Rare PVCs noted [id number]-Djbnme Cardiac Interrogation, subcut cardiac rhythm monitor Procedure code (CPT) selection complete Assessment & Plan Assessment & Plan (1) Implantable loop recorder present: Code(s): Z95.818 - Presence of other cardiac implants and grafts Category: Medical Plan: See above Coding Level of Care Code Procedure Only Diagnoses Implantable loop recorder present Z95.818 CPT Codes Cardiac Device Check - Cardiac Device 16: 70034-Zwgffq Cardiac Interrogation, subcut cardiac rhythm monitor ([id number])
== END ==
PROVIDERS: PCP Nurse Practitioner Family; Visit Provider Internal Medicine Cardiovascular Disease
DX: I49.3 Ventricular premature depolarization (principal); Z95.818 Presence of other cardiac implants and grafts
CPT/HCPCS: 93298

== ENCOUNTER → 2024-06-06 23:59 | Outpatient (BNV) | payer OTHER, SELFPAY ==
--- NOTE | 2024-06-13 16:07 | A.OFFVIS_ITS ---
Intake Visit Reasons: Remote ILR check- [employer] Allergies No Known Allergies Allergy (Verified 01/14/24 12:59) PFSH Medical History Arthritis Alcohol use Syncope Cardiac arrest HTN (hypertension) Surgical History History of vasectomy History of tonsillectomy Family History Daughter Bipolar 1 disorder Other Mental health disorder Social History Household Members: Spouse Housing: House Do you presently have visiting nurse or other home services: No Alcohol intake: current Alcohol intake frequency: 0-2 drinks per day Alcohol type: beer Patient Tobacco Use Status: Former Tobacco user Tobacco use type: Cigarette Cigarettes Per Day: 1 Years Smoked: 20 e-Cigarette/Vaping Use: Never Used service: No Current occupational status: employed Current occupation: [employer] Current occupational exposures/hazards: No Sexual orientation: Unable to collect Gender identity: Unable to collect Cognitive needs: No Hearing needs: No Vision needs: Yes (wears glasses) Office Procedures Cardiac Device Check Cardiac Device Check Details: Remote implantable loop recorder report generated 06/06/2024. No atrial fibr illation or pauses noted. Rare PVCs noted 19865-Virrqf Cardiac Interrogation, subcut cardiac rhythm monitor Procedure code (CPT) selection complete Assessment & Plan Assessment & Plan (1) Implantable loop recorder present: Code(s): Z95.818 - Presence of other cardiac implants and grafts Category: Medical Plan: See above Coding Level of Care Code Procedure Only Diagnoses Implantable loop recorder present Z95.818 CPT Codes Cardiac Device Check - Cardiac Device 16: [id number]-Ghgbtc Cardiac Interrogation, subcut cardiac rhythm monitor ([id number])
== END ==
PROVIDERS: PCP Nurse Practitioner Family; Visit Provider Internal Medicine Cardiovascular Disease
DX: I49.3 Ventricular premature depolarization (principal); Z95.818 Presence of other cardiac implants and grafts
CPT/HCPCS: 93298

== ENCOUNTER → 2024-07-06 23:59 | Outpatient (BNV) | payer OTHER, SELFPAY ==
--- NOTE | 2024-07-11 12:59 | A.OFFVIS_ITS ---
Intake Visit Reasons: Remote ILR check- [employer] Allergies No Known Allergies Allergy (Verified 01/14/24 12:59) PFSH Medical History Arthritis Alcohol use Syncope Cardiac arrest HTN (hypertension) Surgical History History of vasectomy History of tonsillectomy Family History Daughter Bipolar 1 disorder Other Mental health disorder Social History Household Members: Spouse Housing: House Do you presently have visiting nurse or other home services: No Alcohol intake: current Alcohol intake frequency: 0-2 drinks per day Alcohol type: beer Patient Tobacco Use Status: Former Tobacco user Tobacco use type: Cigarette Cigarettes Per Day: 1 Years Smoked: 20 e-Cigarette/Vaping Use: Never Used service: No Current occupational status: employed Current occupation: [employer] Current occupational exposures/hazards: No Sexual orientation: Unable to collect Gender identity: Unable to collect Cognitive needs: No Hearing needs: No Vision needs: Yes (wears glasses) Office Procedures Cardiac Device Check Cardiac Device Check Details: Remote implantable loop recorder report generated 07/06/2024. No atrial fibr illation pauses noted. Total burden of PVCs at 0.4% [id number] Cardiac Interrogation, subcut cardiac rhythm monitor Procedure code (CPT) selection complete Assessment & Plan Assessment & Plan (1) Implantable loop recorder present: Code(s): Z95.818 - Presence of other cardiac implants and grafts Category: Medical Plan: See above Coding Level of Care Code Procedure Only Diagnoses Implantable loop recorder present Z95.818 CPT Codes Cardiac Device Check - Cardiac Device 16: [id number] Cardiac Interrogation, subcut cardiac rhythm monitor ([id number])
== END ==
PROVIDERS: PCP Nurse Practitioner Family; Visit Provider Internal Medicine Cardiovascular Disease
DX: I49.3 Ventricular premature depolarization (principal); Z95.818 Presence of other cardiac implants and grafts
CPT/HCPCS: 93298

== ENCOUNTER 2024-07-09 07:12 | Outpatient (REF) | payer OTHER, SELFPAY ==
--- OUTSIDE RECORDS SUMMARY | 2024-07-09 07:16 | XMS_ITS | Patient Health Record ---
Author Organization [facility] Address [address] [place] [address] Care Team Providers Care Chemistry Instructor Name Role Phone Claudio Lynn Primary Care Provider Unavailab Reese Muir Unavailable [phone] Allergies No Known Allergies Reason For Referral No Information Medications Medication SIG (Take, Route, Fr equency, Duration) Notes Start Date End Date Status Lisinopril 20 MG 1 tablet Orally Once a day Active Social History Tobacco Use: Social History Observation Description Date Details (start date - stop date) Former Smoker NA - NA Tobacco Use/Smoking Question Answer Notes Are you a: former smoker Additional Findings: Tobacco Non-User Current no n-smoker Alcohol Screen Question Answer Notes Did you have a drink contain ing alcohol in the past year? Yes How often did you have a dri nk containing alcohol in the past year? 2 to 4 times a month (2 points) Points 2 Interpretation Negative Problems Problem Type SNOMED Code ICD Code Onset Dates Problem Status W/U Status Risk Notes Problem Acquired hammer toe of right foot (2877054536795 105) Other hammer toe(s) (acquired), right foot (M20.41) Active confirmed Problem Acquired hammer toe of left foot (2393817024898 103) Other hammer toe(s) (acquired), left foot (M20.42) Active confirmed Vital Signs Height 5ft 6in in 09/07/2023 Weight 180 lbs 09/07/2023 BMI 29.05 kg/m2 09/07/2023 Encounters Encounter Location Date Provider Diagnosis [facility] [address] [place] [address] 09/07/2023 Reese Friedman Other hammer toe(s) (acquired), right foot M20.41 ; Other hammer toe(s) (acquired), left foot M20.42 ; Tinea unguium B35.1 ; Pain in left toe(s) M79.675 and Pain in right toe(s) M79.674 Assessments Encounter Date Diagnosis (ICD Code) Assessment Notes Treatment Notes Treatment Clinical Notes Section Notes 09/07/2023 Other hammer toe(s) (acquired), right foot (ICD-10 - M20.41) 09/07/2023 Other hammer toe(s) (acquired), left foot (ICD-10 - M20.42) 09/07/2023 Tinea unguium (ICD-10 - B35.1) 09/07/2023 Pain in left toe(s) (ICD-10 - M79.675) 09/07/2023 Pain in right toe(s) (ICD-10 - M79.674) Plan Of Treatment No Information Insurance Providers Payer Name Payer Address Payer Phone Subscriber Number Group Number Insured Name Patient Relationship to Insured Coverage Start Date Coverage End Date [employer] [address] [place] [phone] [id number] Ja Epps Self - patient is the insured Medical (General) History Medical History History ICD Code Arthritis High blood pressure Surgical History Surgery Date(Month/Year)
--- OUTSIDE RECORDS SUMMARY | 2024-07-09 07:16 | XMS_ITS | Clinical Summary ---
Author Organization [employer] Address [address] [place] [id number] Care Team Providers Care Apparel Designer Name Role Phone Unavailable Primary Care Provider Unavailabl e Social History Tobacco Use Types Packs/Day Years Used Date Smoking Tobacco: Never Assessed Sex and Gender Information Value Date Recorded Sex Assigned at Not on file Legal Sex Male 1:11 PM [facility] Gender Identity Not on file Sexual Orientation Not on file Plan of Treatment Not on file Insurance
--- OUTSIDE RECORDS SUMMARY | 2024-07-09 07:17 | XMS_ITS | Encounter Summary ---
Author Organization [employer] Address [address] [place] [address] Care Team Providers Care Grease Worker Name Role Phone Unavailable Primary Care Provider Unavailabl e Encounter Details Date Type Department Care Team (Latest Contact Info) Description 01/27/2023 [facility] ADM Social History Tobacco Use Types Packs/Day Years Used Date Smoking Tobacco: Never Assessed Sex and Gender Information Value Date Recorded Sex Assigned at Not on file Legal Sex Male 1:11 PM [facility] Gender Identity Not on file Sexual Orientation Not on file documented as of this encounter Plan of Treatment Not on file documented as of this encounter Visit Diagnoses Not on filedocumented in this encounter
--- OUTSIDE RECORDS SUMMARY | 2024-07-09 07:17 | XMS_ITS ---
Author Organization [facility] Address [address] [place] [address] Care Team Providers Care Scalehouse Attendant Name Role Phone Shane Claudio Primary Care Provider UnavailReese Chen Unavailable [phone] Allergies No Known Allergies REASON FOR VISIT Painful toe(s) Medications Medication SIG (Take, Route, Fr equency, [...] Problem Acquired hammer toe of right foot ([id number] 105) Other hammer toe(s) (acquired), right foot (M20.41) Active confirmed Problem Acquired hammer toe of left foot ([id number] 103) Other hammer toe(s) (acquired), left foot (M20.42) Active confirmed Vital Signs Height 5ft 6in in 09/07/2023 Weight 180 lbs 09/07/2023 BMI 29.05 kg/m2 09/07/2023 Encounters Encounter Location Date Provider Diagnosis [facility] [address] [place] [address] 09/07/2023 Reese Friedman Other hammer toe(s) (acquired), [...] toe(s) (ICD-10 - M79.674) Plan Of Treatment Next Appt Details Follow Up: prn, Reason: Progress Notes * Ja VINCENTDOB: (63 yo M)Acc No.[id number]:09/07/2023 Progress Notes Patient:?Ja Vincent Provider:?Reese Friedman DPM :1960???Age:63 Y???Sex:Male Sameer e:09/07/2023 Address:[address] [place], [place] [id number] Pcp:Claudio Lynn Subjective: * Chief Complaints: * ???Painful toe(s) * HPI: ???Toe pain:?Nature:?aching.?Location:?4th toe, 5th toe, B/L feet.?Duration:?several months.?Onset/Cause:?steel toe shoes.?Course:?intermittent.?Aggrevated by:?shoes.?Treatments:?change in shoes.?Severity/Quality:?moderate.? * ROS:?General/Constitutional:?Nausea?denies, denies.?Vomiting?denies, denies.?Hunger Thirst?denies, denies.?Loss appetite?denies, denies.?Chills?denies, denies.?Fatigue?denies, denies.?Fever?denies, denies.?Night Sweats denies, denies.?Unexplained weight loss?denies, denies.?Unexplained weight gain?denies.?Ophthalmologic:?Blurred vision?denies.?Red eye?denies.?HEENTM:?Dentures?denies, denies.?Dizziness?denies, denies.?Glasses/contacts?admits, denies.?Retinopathy?denies, denies.?Blurred/double vision?denies, denies.?TMJ?denies, denies.?Discharge/drainage?denies, denies.?Implants?denies, denies.?Sore throat?denies.?Dental implants?denies.?Hard of hearing ?denies, denies.?Difficulty chewing/swallowing/speaking?denies, denies.?Nose bleeds?denies, denies.?Sore mouth?denies, denies.?Swollen glands?denies.?Respiratory:?On Oxygen?denies, denies.?Pneumonia/pleurisy?denies, denies.?Bronchitis?denies, denies.?Emphysema?denies, denies.?Coughing?denies, denies.?Cough blood?denies, denies.?Shortness of breath?denies, denies.?Wheezing?denies, denies.?Cardiovascular:?Pacemaker?denies, denies.?MVP?denies, denies.?WPW?denies, denies.?CHF?denies, denies.?Heart attack?denies, denies.?Septal defect?denies, denies.?Rapid beat?denies, denies.?Chest pain ?denies, denies.?Atrial Fib.?denies, denies.?Murmur/Palpitations?denies, denies.?Gastrointestinal:?Hemorrhoids?denies, denies.?Stomach/Abdominal pain?denies, denies.?Dark blood stool?denies, denies.?Irritable bowel ?denies, denies.?Constipation?denies, denies.?Diarrhea?denies, denies.?Vomiting?denies.?Hematology:?Swelling?denies, denies.?Clots?denies.?Varicose Veins?denies.?Bruising?denies, denies.?Bleeding problem?denies, denies.?Genitourinary:?Blood urine?denies, denies.?Frequent/Painfu/urination/bladder control?denies, denies.?Kidney stones?denies, denies.?Infection (UTI)?denies, denies.?Nephropathy?denies, denies.?sex trans dis (STD)?denies.?Prostate?denies.?Musculoskeletal:?Hammertoes?denies, denies.?Bunions?denies, denies.?Scoliosis/kyphosis?denies.?Back Pain?denies.?Muscle Cramps/ Resting?denies.?Muscle cramps / walking?denies, denies.?Generalized aches and pains?admits, denies.?Weakness?denies, denies.?Integ.:?Bautista?denies, denies.?Scars?denies, denies.?Corns/calluses?denies, denies.?Ingrown nails?denies, denies.?Painful nails?denies, denies.?Open Sores?denies.?Rashes?denies, denies.?Neurologic:?Difficulty sleeping?denies, denies.?Bipolar?denies.?Brain disorder?denies, denies.?Numbness?denies.?Balance trouble?denies, denies.?Confusion?denies, denies.?Fainting/blackouts?denies, denies.?Headache?denies.?Tingling?denies.?Tremors?denies, denies.? * Medical History:? * Surgical History:?Denies Pas t Surgical History * Hospitalization/Major Diagno stic Procedure:?Denies Past Hospitalization * Family History:?Mother: foot problems, poor circulation.? * Social History:?Tobacco Use:?Tobacco Use/Smoking?Are you a:?former smoker ?Additional Findings: Tobacco Non-User?Current non-smoker ???Drugs/Alcohol:?Drugs?Have you used drugs other than those for medical reasons in the past 12 months??No ?Alcohol Screen?Did you have a drink containing alcohol in the past year??Yes ?How often did you have a drink containing alcohol in the past year??2 to 4 times a month (2 points) ?Points?2 ?Interpretation?Negative ???Miscellaneous:?Caffeine: yes, 1-2 cups per day. ?Exercise: yes, walking, swimming. ?Marital status: . ?Occupation: [employer]. * Medications:?TakingLisinopri l 20 MG Tablet 1 tablet Orally Once a dayMedication List reviewed and reconciled with the patientTaking Lisinopril 20 MG Tablet 1 tablet Orally Once a dayMedication List reviewed and reconciled with the patient * Allergies:?N.K.D.A.yes[Aller gies Verified] Objective: * Vitals:?Ht: 5ft 6in, Wt:180, BMI:29.05, Shoe size: 9.5, Ht-cm: 167.64 cm, Wt-k.65 kg. * Examination: ???General Examination: ?GENERAL APPEARANCE:?pleasant, alert, well nourished, well developed, well hydrated, with good attention to hygene/body habitus, and in no acute distress.?ORIENTED:?person,place, and time.?Neurological: ?SENSORY:?Neurological exam reveals intact sensorium, pain sensation normal, vibration sensation intact, pinprick sensation is normal in the lower extremities, Pt denies, anesthesia, burning, paresthesia, tingling, B/L.?BABINSKI REFLEX:?absent.?Vascular: ?DP PULSES:?2/4, B/L.?PT PULSES:?2/4, B/L.?CAPILLARY FILL TIME:?3 secs. per digit, B/L.?SKIN TEMPERTURE GRADIENT OF THE LOWER EXTERMITIES:?warm to cool, proximal to distal, B/L.?HAIR GROWTH/TEXTURE/ELASTICITY/TURGOR:?normal, B/L.?PIGMENTATION:?normal, B/L.?EDEMA:?no edema, B/L.?TELANGECTASIA:?absent.?VARICOSITIES:?absent.?Dermatologic: ?SKIN FINDINGS:? Skin exam reveals Keratotic lesion(s) located at, T8, T9--btw;, T4.?Orthopedic: ?MUSCLE STRENGTH:?5/5 all groups in a symmetrical fashion , B/L.?GAIT ABNORMALITY:?pronated, abducted, B/L.?DIGITAL DEFORMITIES:? Digital contracture, PIPJ, 2-5 B/L, incompl- reducible with WB, or to push-up test, no over, nor underlapping.?Nails: ?NAILS are:? Elongated, overgrown, dystrophic, lytic, greater than 3mm thick, discolored and friable with crumbly malodorous subungual debris, T2.? Assessment: * Assessment: 1.?Other hammer toe(s) (acqu ired), right foot - M20.41 (Primary)?2.?Other hammer toe(s) (acquired), left foot - M20.42?3.?Tinea unguium - B35.1?4.?Pain in left toe(s) - M79.675?5.?Pain in right toe(s) - M79.674? Plan: * Treatment: * Procedure Codes:? * Preventive Medicine:? ??Counseling:?Discussion:?-03: Office or other outpatient visit for the evaluation and management of a new patient, which required a medically appropriate history and/or examination and LOW level of DECISION MAKING for: 1 STABLE ACUTE UNCOMPLICATED PROBLEM, 2 OR MORE MINOR PROBLEMS, OR 1 STABLE CHRONIC PROBLEM, THAT POSE(S) A LOW RISK FOR MORBIDITY/MORTALITY. The visit on the day of the encounter encompassed interpreting the data and educating the patient as to the nature of their condition, treatment options available according to their individual PMH, meds, allergies, and overall health/living conditions, as well as any potential risks or complications that may occur from a failure to adhere to, and participate in, the recommended course of therapy. The discussion included a complete verbal, and/or written explanation of the examination results, any x-rays taken, the proposed diagnosis, and outline of the treatment plan. A schedule for future care needs was also explained. The patient verbalized an understanding of the instructions at this time and agreed to be an active participant in their treatment. If the patient should think of any questions or concerns after the visit, I have encouraged the patient to call the office.?Digital Treatment:?HT- I explained to the patient the possible etiologies of Hammertoes, including genetics/foot type/shoegear/activity level/exercise routine and the risks/benefits of all the different treatment options for their pain including: No treatment at all, Rest, Ice, New/supportive/wider/deeper Shoegear, Digital Padding/Strapping/Taping/Bracing/Gel protective sleeves, Foot/Ankle AFO Bracing, Stretching exercises, Deep Tissue Massage, Arch support/shoe inserts with splay metatarsal padding, and Custom orthoses. I insisted that any digital devices be removed daily and not worn overnight for safety. The patient is to carefully examine the toes daily for any skin irritation while using any splinting or padding device. The advantages and disadvantages of each option were discussed and the patients questions re: shoegear, padding, custom vs prefabricated inserts, activity level, and consistency in home treatment regimens for optimal success were answered to their verbally confirmed satisfaction.?Fungal Nail Counseling:?The patient was counseled on the diagnosis, potential etiologies (including, but not limited to, environmental factors, genetic, immune deficiency), and the multiple treatment options for Onychomycosis. We discussed the risks and benefits of each option from performing no treatment, to ultraviolet light shoe treatment, to laser nail treatment, to applying topical antifungals, to taking oral antifungal medication, to surgical removal of the involved nail(s) with or without performing a matricectomy, or any combination thereof. We discussed the advantages and disadvantages of each of possible treatment and importance for adherence to all the recommended therapies for optimum success. This includes the necessity for weekly emery board self nail home debridements, and control the nail and skin environment as much as possible by only using a fresh, dry pair of shoes/socks each day, as well as keeping the skin as dry as possible through the use of sprays/powders if necessary. The patient was instructed to discard the emery board after use to prevent reinfection of the involved nail(s). We discussed the mycological and visual clinical effectiveness of topical vs oral antifungal treatments as well as each ones potential side effects and/or any patient- specific medication interactions. We discussed the reasons behind the important requirement of regular liver function testing with oral antifungal therapy for safety. Patient questions regarding use, dosage, successful outcomes, blood tests, and possible pharmaceutical interactions were reviewed and the patient verbalized that all answers were clearly understood--pt to use nail drill at home.? * Follow Up:?prn * Images: * Sign off status: Completed true * Provider:?Reese Friedman DPM Date:? 024 Generated for Shailesh bingham/Windy/eTransmitting on:?07/09/2024 07:16 AM EST History and Physical Notes * HPI (History of Present Illness) Category Sub-Category Detail Notes Category Not es Toe pain Nature: aching Location: 4th toe, 5th toe, B/ L feet Duration: several months Onset/Cause: steel toe shoes Course: intermittent Aggravated by: shoes Treatments: change in shoes Severity/Quality: moderate Examination Category Sub-Category Detail Notes Category Not es Neurological SENSORY: Neurological exa m reveals intact sensorium, pain sensation normal, vibration sensation intact, pinprick sensation is normal in the lower extremities, Pt denies, anesthesia, burning, paresthesia, tingling, B/L BABINSKI REFLEX: absent Dermatologic SKIN FINDINGS: Skin exam reveal s Keratotic lesion(s) located at, T8, T9--btw;, T4 Orthopedic GAIT ABNORMALITY: pronated, abducted, B/L DIGITAL DEFORMITIES: Digital contracture , PIPJ, 2-5 B/L, incompl-reducible with WB, or to push-up test, no over, nor underlapping MUSCLE STRENGTH: 5/5 all groups in a symmetrical fashion , B/L General Examination GENERAL APPEARANCE: pleasant , alert, well nourished, well developed, well hydrated, with good attention to hygene/body habitus, and in no acute distress ORIENTED: person,place, and ti me Vascular DP PULSES (B): 2/4, B/L PT PULSES (B): 2/4, B/L CAPILLARY FILL TIME: 3 secs. per digit, B/L TEMPERTURE GRADIENT (C): warm to cool, p roximal to distal, B/L TROPHIC CONDITION-TEXTURE/ELASTICITY/TURGOR/HAIR GROWTH (B): normal, B/L EDEMA (C): no edema, B/L TELANGECTASIA: absent VARICOSITIES: absent PIGMENTATION: normal, B/L Nails NAILS are: Elongated, overg rown, dystrophic, lytic, greater than 3mm thick, discolored and friable with crumbly malodorous subungual debris, T2
[2024-07-09 07:37] LABS: Hematocrit 39.6 % (42.0-52.0); Hemoglobin 13.5 g/dl (14.0-18.0); Mean Corpuscular HGB Conc 34.1 g/dl (31.0-36.0); Mean Corpuscular Hemoglobin 33.4 pg (27.0-33.0); Platelet Count 186 X10*3/uL (160-400); Red Blood Count 4.04 X10*6/uL (4.60-5.80); Red Cell Distribution Width 13.3 % (11.0-16.0)
[2024-07-09 08:07] LABS: Estimated Average Glucose 111 mg/dL; Hemoglobin A1c % 5.5 % (<6.0); Total Hemoglobin (HGBA1C) 3553.0474 umol/L
[2024-07-09 08:09] LABS: Alanine Aminotransferase 18 U/L (0-40); Alkaline Phosphatase 68 U/L (39-117); Anion Gap 15 (12-20); Aspartate Amino Transferase 24 U/L (5-37); Bilirubin Total 0.3 mg/dL (0.0-1.0); Blood Urea Nitrogen 21 mg/dL (9-16); Calcium 9.5 mg/dL (8.4-10.2); Carbon Dioxide 24 mmol/L (22-29); Chloride 108 mmol/L (96-108); Cholesterol 246 mg/dL (<200); Estimated Glomerular Filt Rate > 60; Glucose Fasting 96 mg/dL (60-99); HDL Cholesterol 104 mg/dL (>40); LDL Cholesterol Calculated 110 mg/dL (<100); Potassium 4.7 mmol/L (3.3-5.1); Sodium 142 mmol/L (135-145); Total Protein 7.4 g/dL (6.5-8.0); Triglycerides 161 mg/dL (<150)
[2024-07-09 08:29] LABS: TSH reflex Free T4 1.19 uIU/mL (0.32-4.0); Vitamin D 25-OH Total 20.7 ng/mL (>30)
[2024-07-09 08:38] LABS: Folate 3.6 ng/mL (> or = 4.0); Vitamin B12 669 pg/mL (200-900)
[2024-07-09 09:16] LABS: Creatinine Urine 137.52 mg/dL; Microalbum/Creatinine Ratio Ur 7.2 ug/mg cr (<30)
[2024-07-14 22:28] LABS: PSA, Ultra Sensitive 0.42 ng/mL
== END 2024-07-09 07:13 | disposition home or self-care (01) ==
LOC: HO.LAB 07:12
PROVIDERS: PCP Nurse Practitioner Family; Visit Provider Nurse Practitioner Family
DX: E55.9 Vitamin D deficiency, unspecified (principal); D51.3 Other dietary vitamin B12 deficiency anemia; E78.2 Mixed hyperlipidemia; I10 Essential (primary) hypertension; Z13.1 Encounter for screening for diabetes mellitus; Z12.5 Encounter for screening for malignant neoplasm of prostate
CPT/HCPCS: 36415; 80053; 80061; 82043; 82306; 82570; 82607; 82746; 83036; 84153; 84443; 85027

== ENCOUNTER 2024-07-15 12:12 | Outpatient (AMB) | payer OTHER, SELFPAY ==
--- NOTE | 2024-07-15 12:25 | A.OFFPC_ITS ---
Vital Signs 07/15/24 12:55 Height 5 ft 6 in Weight 188 lb 6 oz BMI 30.4 BP 124/68 Blood Pressure Location Lt brachial Position Sitting Respiration 13 Pulse 91 Pulse Source Pulse Oximeter Temp 97.1 F Temp Source Oral Pulse Oximetry (%) 98 Oxygen Delivery Method Room Air Intake Visit Reasons: July 15 @ 1pm 30 min fu chronic conditions Intake Note: follow up Instructional Support Specialist Required: No Allergies No Known Allergies Allergy (Verified 07/15/24 12:25) Medication List - Last Reconciled 07/15/24 by Princess Randle, [employer]- amlodipine 5 mg PO DAILY lisinopril 20 mg PO DAILY Tobacco use date assessed: 07/15/24 Fall risk assessment: 2 + Falls in past year (slipped on ice) Last assessed Fall Risk: 07/15/24 Dental Screening Dental Screen Date: 07/15/24 Did you have a dental visit in the last 12 months?: Yes Did you have a dental problem in the last 6 months where you did not have access to dental care?: No Was dental information given to patient?: Patient has dentist HPI HPI Comments History of Present Illness Details 64-year-old male s/p cardiac arrest 07/23, fractures of the anterior right 2nd through 5th ribs as a result of the CPR, HTN, ETOH use, marijuana use, dilation of the ascending aorta 4 cm (echocardiogram 07/29/2023), b12 anemia, Hyperlipidemia, Vit D def Status post tonsillectomy Specialists: [facility] Maintenance: 07/2023 Ejection fraction 62% mild calcif ication of the aortic valve, trace aortic valve regurg. Moderate focal hypertrophy of the basal septum Colon: declines. Tdap 01/2024, Flu 2023, COVID, recommend Shingles and Prevnar Optho - glasses, visits every other year History of Present Illness - The patient is a 64-year-old male pres enting for a routine follow-up for chronic conditions & CPE - Hyperlipidemia is being managed with d ietary changes, though current lab results indicate a rise in LDL cholesterol from 99 to 110, with a total cholesterol level at 246. HDL cholesterol remains protective. - Essential Hypertension is managed with amlodipine and lisinopril. Has mild edema BLe but not bothersome - Thoracic Aortic Aneurysm was measured at 4 cm on a echo in July 2023. managed by cards, repeat echo 12/2024 - Vitamin B12 Deficiency is being treate d and currently has levels at 669. taking 2000 mcg QD - Vitamin D Deficiency has worsened to 2 0.7, requiring supplementation. - The patient has chronic alcohol use an d attempts moderation. - Anemia is present with a stable low bl ood count, managed with dietary iron. Denies bleeding. 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 - Exercise: Exercises include swimming d uring the summer, shoveling snow, and other physical activities around the home. - Nutritional Intake: Regular diet inclu ramin an [place]ut[place] muffin with butter, trail mix containing nuts, raisins, and occasional costello/sausage with eggs. Attempting moderation in diet. - Alcohol Use: Chronic alcohol use is pr esent, with efforts towards moderation. Health Maintenance - Cholesterol levels: Total at 246, LDL at 110, HDL remains protective. - Vitamin D: 20.7; Supplementation maren tena. - Vitamin B12: Current level at 669. - Anemia and electrolyte levels are stab le. - Discussed exercises including swimming and general lifestyle modifications. Review of Systems - General: Reports feeling tired but att ributes it to work and age. - Respiratory: Denies chest pain with ph ysical activity. - Musculoskeletal: Denies chest pain whi le carrying heavy objects or during shoveling snow. - Endocrine: Denies new onset of diabete s symptoms. - Neurologic: Denies dizziness with sumner ges in position. Physical Exam General: Well developed, well nourished, in no acute distress. Appears stated age. Head: Normocephalic, atraumatic. Eyes: Pupils are equal, round and reactive to light and accommodation. Conjunctivae are clear. Vision grossly normal. Ears: TMs clear AU, EACS WNL. Nose: Patent, without discharge. Neck: Supple, no adenopathy or thyromegaly Lungs: Clear to auscultation bilaterally. No rales, rhonchi or wheeze noted. Good air flow in all logan. Heart: Regular rate and rhythm. No murmurs, click, rubs or gallops are noted. Abdomen: Bowel sounds present in all quadrants. The abdomen is soft, nontender, with no masses or organomegaly noted. No hernias are noted. : Deferred. Reviewed JACLYN Pulses: Peripheral pulses are equal and palpable bilaterally, decreased. Extremities: No clubbing, cyanosis noted. Trace edema ble skin intact Neurologic: Gait and station normal. Cranial Nerves 2-12 intact. Motor strength grossly symmetrical and intact. No sensory loss. Balance normal. Skin: No rashes, ulcers, or lesions noted. Turgor is good. Skin color is good. Hair and nails are without abnormalities. AK and SK on anterior and posterior trunk - defers the knife Psych: Normal eye contact, affect and mood appropriate, and normal interactions. Patient is alert and appropriate to context. Results Labs 07/09/2024 show stable anemia RBC 4.04 hemoglobin 30.5 hematocrit 39.6 worsening white blood cell count 4.0 elevated MCH 33.4 normal electrolytes, normal renal function, hemoglobin A1c 5.5% normal LFTs triglycerides 161 cholesterol 246 LDL 110 HDL 104 PSA is normal, B12 normal vitamin-D low at 20.7 folate low at 3.6 TSH normal urine microalbumin normal Discussion Notes I discussed the patient's hyperlipidemia and advised dietary modifications since there is an elevation in LDL cholesterol to 110 and total cholesterol to 246. I emphasized the importance of lifestyle changes, including exercise and dietary modifications, to manage blood lipid levels. For vitamin deficiencies, I recommended supplementing vitamin D due to its significant drop to 20.7, despite dietary intake. During our discussion, I validated the continuation of B12 supplementation given its improvement to 669. We articulated the continued monitoring of anemia and emphasized the importance of regular consumption of iron-rich foods. There is an adherence to current antihypertensive medication for controlled essential hypertension. Lastly, I advised on being cautious with exercises like shoveling snow due to age-related considerations and advised maintaining exercise routines like swimming when feasible. I also reinforced maintaining regular check-ups and contacting me in case of any new symptoms or deterioration of current symptoms. Assessment and Plan 1. Hyperlipidemia: The patient's LDL inc reased to 110 while total cholesterol makeda to 246, urging continued lifestyle modification as paramount. HDL levels afford cardiac protection, permitting a conservative approach. 2. Essential Hypertension: Essential hyp ertension is effectively managed with current antihypertensive therapy. Monitoring consistent with systolic and diastolic measures is warranted. If edema worsens, contact myself or cards. 3. Thoracic Aortic Aneurysm: The 4 cm di lation demands regular evaluation to detect any progression or potential complications. managed by cards, echo 12/2024 4. Vitamin B12 Deficiency: Improved metr ics noted at 669 necessitate sustained supplementation. 5. Vitamin D Deficiency: Notably reduced level of 20.7 necessitates aggressive supplementation. 6. Alcohol Use Disorder: Patient exhibit s motivated intent to modulate consumption, with suggestions for supportive behavioral strategies. 7. Anemia: Stable parameters achieved th rough increased dietary iron intake assignments. Advised to take One a Day mens as this has b12, folate and vitamin d. Patient Instructions - Continue following a cholesterol-lower ing diet and maintain regular physical exercise. - Begin vitamin D supplementation as rec ommended. - Continue current vitamin B12 supplemen tation. - Monitor blood pressure and maintain an tihypertensive medications. - Moderate alcohol intake and be aware o f lifestyle effects on health. - Stay alert for any changes in symptoms and seek help if needed. - RTO 1 year for CPE, sooner prn Consent Patient was informed and verbally consented to the use of an ambient scribe for clinic note documentation during this visit. [facility] Medical History Arthritis Alcohol use Syncope Cardiac arrest HTN (hypertension) Surgical History History of vasectomy History of tonsillectomy Family History Daughter Bipolar 1 disorder Other Mental health disorder Social History Household Members: Spouse Housing: House Do you presently have visiting nurse or other home services: No Alcohol intake: current Alcohol intake frequency: 0-2 drinks per day Alcohol type: beer Patient Tobacco Use Status: Former Tobacco user Tobacco use type: Cigarette Cigarettes Per Day: 1 Years Smoked: 20 e-Cigarette/Vaping Use: Never Used service: No Current occupational status: employed Current occupation: [employer] Current occupational exposures/hazards: No Sexual orientation: Unable to collect Gender identity: Unable to collect Cognitive needs: No Hearing needs: No Vision needs: Yes (wears glasses) Questionnaire PHQ-9 Over the last 2 weeks, how often have you been bothered by any of the following problems? 1. Little interest or pleasure in doing things: not at all 2. Feeling down, depressed, or hopeless: not at all 3. Trouble falling or staying asleep, or sleeping too much: not at all 4. Feeling tired or having little energy: several days 5. Poor appetite or overeating: not at all 6. Feeling bad about yourself - or that you are a failure or have let yourself or your family down: not at all 7. Trouble concentrating on things, such as reading the newspaper or watching television: not at all 8. Moving or speaking so slowly that other people could have noticed. Or the opposite - being so fidgety or restless that you have been moving around a lot more than usual: not at all 9. Thoughts that you would be better off or of hurting yourself in some way: not at all Total score: 1 Depression Screening Interpretation: Negative Depression Screening Done: Yes 47196 - PHQ-9 Billing: Yes Source: Developed by Drs. Javi James, Mónica Lowe, David Aguilar and colleagues, with an educational adelfo from [employer]. Thrive Questionnaire Date Thrive assessed: 07/15/24 I am a: Patient What is your living situation today?: I have a steady place to live Within the past 12 months, did the food you bought not last and you didn't have the money to get more?: Never true Within the past 12 months, did you worry whether your food would run out before you got money to buy more?: Never true Do you have trouble paying for medicines?: Yes Do you have trouble getting transportation to medical appointments?: Yes Do you have trouble paying your heating and electricity bill?: No Do you have trouble taking care of your child, family member or friend?: No Do you have trouble with day-to-day activities such as bathing, preparing meals, shopping, managing finances, etc.?: No Are you currently unemployed and looking for a job?: No Are you interested in more education?: No Please select the resources that you would like help with: Paying for medicine Currently or been in a relationship where the following occur: No concerns reported THRIVE Score: 1 AUDIT C Alcohol Use Questionnaire (AUDIT-C) 1. How often do you have a drink containing alcohol?: 2-4 times a month 2. How many drinks containing alcohol do you have on a typical day when you are drinking?: 1 or 2 3. How often do you have six or more drinks on one occasion?: Never Total Score: 2 Score Reviewed/Action Taken: Yes ZAID-7 AMB Questionnaire ZAID-7 Date ZAID - 7 assessed: 07/15/24 Feeling nervous, anxious, or on edge: 1 = Several days Not being able to stop or control worryin = Not at all Worrying too much about different things: 0 = Not at all Trouble relaxin = Not at all Being so restless that it is hard to sit still: 0 = Not at all Becoming easily annoyed or irritable: 0 = Not at all Feeling afraid as if something awful might happen: 1 = Several days Total ZAID-7 score (0-4 normal; 5-9 mild; 10-14 moderate; 15-21 severe): 2 Source: Developed by Drs. Javi James, Mónica Lowe, David Aguilar and colleagues, with an educational adelfo from [employer]. ZAID-7 Assessment Billing ZAID-7 Assessment Tool: ZAID-7 Assessment 30784 Physical exam (Primary Care) Vital Signs: Last Vital Signs Temp 97.1 F 07/15/24 12:55 Pulse 91 07/15/24 12:55 Resp 13 07/15/24 12:55 BP 124/68 07/15/24 12:55 Pulse Ox 98 07/15/24 12:55 Oxygen Delivery Method Room Air 07/15/24 12:55 BMI result Body Mass Index 30.4 BMI Assessment/Plan discussion: High BMI High, discussed plan: lifestyle Tobacco/Smoking Status: Tobacco use Status Tobacco use date assessed 07/15/24 07/15/24 12:26 Patient Tobacco Use Status Former Tobacco user 07/15/24 12:26 Tobacco use type Cigarette 07/15/24 12:26 e-Cigarette/Vaping Use Never Used 07/15/24 12:26 PHQ-9: PHQ-9 Score PHQ-9: Total score 1 07/15/24 12:26 Depression Screening Interpretation: Negative Thrive Assessment: Date of Thrive Assessment Date Thrive assessed 07/15/24 07/15/24 12:26 Currently or been in a relationship where the following occur: No concerns reported Coding Level of Care Code Est Pt Prev Care >65y(51869) Diagnoses Encounter for general adult medical examination without abnormal findings Z00.00 Primary hypertension I10 Hypertension type: primary hypertension Ascending aorta dilatation I77.810 Mixed hyperlipidemia E78.2 Hyperlipidemia type: mixed hyperlipidemia Other dietary vitamin B12 deficiency anemia D51.3 Vitamin B12 deficiency anemia type: other dietary B12 deficiency Alcohol use Z78.9 Aortic valve calcification I35.9 Implantable loop recorder present Z95.818 PAD (peripheral artery disease) I73.9 Vitamin D deficiency E55.9 Folate deficiency E53.8 BMI 30.0-30.9,adult Z68.30 Obesity, Class I, BMI 30.0-34.9 (see actual BMI) E66.811 Additional Codes ZAID-7 Assessment Billing - ZAID-7 Assessment Tool: ZAID-7 Assessment [id number] ([id number]) PHQ-9 - 99139 - PHQ-9 Billing: Yes ([id number]) Assessment & Plan Assessment & Plan (1) Encounter for general adult medical examination without abnormal findings: Code(s): Z00.00 - Encounter for general adult medical examination without abnormal findings (2) HTN (hypertension): Comment: Goal less than 130/80 Tolerating compliant of amlodipine 5 mg daily, lisinopril 20 mg daily. Code(s): I10 - Essential (primary) hypertension Category: Medical Qualifiers: Hypertension type: primary hypertension Qualified Code(s): I10 - Essential (primary) hypertension (3) Ascending aorta dilatation: Comment: (echocardiogram 07/29/2023) dilation of the ascending aorta 4 cm Ejection fraction 62% mild calcification of the aortic valve, trace aortic valve regurg. Moderate focal hypertrophy of the basal septum Code(s): I77.810 - Thoracic aortic ectasia Category: Medical (4) Hyperlipidemia: Comment: LDL goal < 70 declined statin Code(s): E78.5 - Hyperlipidemia, unspecified Category: Medical Qualifiers: Hyperlipidemia type: mixed hyperlipidemia Qualified Code(s): E78.2 - Mixed hyperlipidemia (5) B12 deficiency anemia: Comment: likely related to etoh use Code(s): D51.9 - Vitamin B12 deficiency anemia, unspecified Category: Medical Qualifiers: Vitamin B12 deficiency anemia type: other dietary B12 deficiency Qualified Code(s): D51.3 - Other dietary vitamin B12 deficiency anemia (6) Alcohol use: Code(s): Z78.9 - Other specified health status Category: Social Hx (7) Aortic valve calcification: Comment: (echocardiogram 07/29/2023) dilation of the ascending aorta 4 cm Ejection fraction 62% mild calcification of the aortic valve, trace aortic valve regurg. Moderate focal hypertrophy of the basal septum Code(s): I35.9 - Nonrheumatic aortic valve disorder, unspecified Category: Medical (8) Implantable loop recorder present: Code(s): Z95.818 - Presence of other cardiac implants and grafts Category: Medical (9) PAD (peripheral artery disease): Comment: Based on clinical exam. Monitor skin integrity. declined statin Code(s): I73.9 - Peripheral vascular disease, unspecified Category: Medical (10) Vitamin D deficiency: Code(s): E55.9 - Vitamin D deficiency, unspecified Category: Medical (11) Folate deficiency: Comment: d/t etoh Code(s): E53.8 - Deficiency of other specified B group vitamins Category: Medical (12) BMI 30.0-30.9,adult: Code(s): Z68.30 - Body mass index [BMI] 30.0-30.9, adult Category: Medical (13) Obesity, Class I, BMI 30.0-34.9 (see actual BMI): Code(s): E66.811 - Obesity, class 1 Category: Medical Plan . Orders: Orders Hemoglobin A1c 1 Year D51.3 - Other dietary vitamin B12 deficiency anemia, E78.2 - Mixed hyperlipidemia, I10 - Essential (primary) hypertension, I77.810 - Thoracic aortic ectasia Microalbumin, Random (w Creat) 1 Year D51.3 - Other dietary vitamin B12 deficiency anemia, E78.2 - Mixed hyperlipidemia, I10 - Essential (primary) hypertension, I77.810 - Thoracic aortic ectasia PSA, Ultra Sensitive 1 Year D51.3 - Other dietary vitamin B12 deficiency anemia, E78.2 - Mixed hyperlipidemia, I10 - Essential (primary) hypertension, I77.810 - Thoracic aortic ectasia Vitamin B12 and Folate 1 Year D51.3 - Other dietary vitamin B12 deficiency anemia, E78.2 - Mixed hyperlipidemia, I10 - Essential (primary) hypertension, I77.810 - Thoracic aortic ectasia Vitamin D 25-OH Total 1 Year D51.3 - Other dietary vitamin B12 deficiency anemia, E78.2 - Mixed hyperlipidemia, I10 - Essential (primary) hypertension, I77.810 - Thoracic aortic ectasia Lipid Panel 1 Year D51.3 - Other dietary vitamin B12 deficiency anemia, E78.2 - Mixed hyperlipidemia, I10 - Essential (primary) hypertension, I77.810 - Thoracic aortic ectasia Complete Blood Count no Diff 1 Year D51.3 - Other dietary vitamin B12 deficiency anemia, E78.2 - Mixed hyperlipidemia, I10 - Essential (primary) hypertension, I77.810 - Thoracic aortic ectasia Comprehensive Met. Panel 1 Year D51.3 - Other dietary vitamin B12 deficiency anemia, E78.2 - Mixed hyperlipidemia, I10 - Essential (primary) hypertension, I77.810 - Thoracic aortic ectasia IRON PROFILE 1 Year D51.3 - Other dietary vitamin B12 deficiency anemia, E78.2 - Mixed hyperlipidemia, I10 - Essential (primary) hypertension, I77.810 - Thoracic aortic ectasia TSH reflex Free T4 1 Year D51.3 - Other dietary vitamin B12 deficiency anemia, E78.2 - Mixed hyperlipidemia, I10 - Essential (primary) hypertension, I77.810 - Thoracic aortic ectasia Medications: New multivitamin 1 tab PO DAILY 90 tabs 2RF Refilled lisinopril 20 mg PO DAILY 90 tabs 3RF Patient Instructions: Health screenings for men You should visit your health care provider regularly, even if you feel healthy. The purpose of these visits is to: Screen for medical issues Assess your risk for future medical problems Encourage a healthy lifestyle Update vaccinations and other preventive care services Help you get to know your provider in case of an illness Information Even if you feel fine, you should still see your provider for regular checkups. These visits can help you avoid problems in the future. For example, the only way to find out if you have high blood pressure is to have it checked regularly. High blood sugar and high cholesterol level also may not have any symptoms in the early stages. Simple blood tests can check for these conditions. There are specific times when you should see your provider or receive specific health screenings. The [place] Preventive Services Task Force publishes a list of recommended screenings. Below are screening guidelines for men ages 40 to 64. BLOOD PRESSURE SCREENING Have your blood pressure checked at least once every year. Watch for blood pressure screenings in your area. Ask your provider if you can stop in to have your blood pressure checked. Ask your provider if you need your blood pressure checked more often if: You have diabetes, heart disease, kidney problems, or are overweight or have certain other health conditions You have a first-degree relative with high blood pressure You are Black Your blood pressure top number is from 120 to 129 mm Hg, or the bottom number is from 70 to 79 mm Hg If the top number is 130 mm Hg or greater or the bottom number is 80 mm Hg or greater, this is considered stage 1 hypertension. Schedule an appointment with your provider to learn how you can lower your blood pressure. Effects of age on blood pressure CHOLESTEROL SCREENING Cholesterol screening should begin at age 35 for men with no known risk factors for coronary heart disease. Repeat cholesterol screening should take place: Every 5 years for men with normal cholesterol levels More often if changes occur in lifestyle (including weight gain and diet) More often if you have diabetes, heart disease, kidney problems, or certain other conditions COLORECTAL CANCER SCREENING If you are under age 45, talk to your provider about getting screened. You may need to be screened if you have a strong family history of colon cancer or polyps. Screening may also be considered if you have risk factors such as a history of inflammatory bowel disease or polyps. If you are age 45 to 75, you should be screened for colorectal cancer. There are several screening tests available: A stool-based fecal occult blood (gFOBT) or fecal immunochemical test (FIT) every year A stool sDNA test every 1 to 3 years Flexible sigmoidoscopy every 5 years or every 10 years with stool testing FIT done every year CT colonography (virtual colonoscopy) every 5 years Colonoscopy every 10 years You may need a colonoscopy more often if you have risk factors for colorectal cancer, such as: Ulcerative colitis A personal or family history of colorectal cancer A history of growths in your colon called adenomatous polyps DENTAL EXAM Go to the dentist once or twice every year for an exam and cleaning. Your dentist will evaluate if you have a need for more frequent visits. DIABETES SCREENING All adults who do not have risk factors for diabetes should be screened starting at age 35 and repeated every 3 years. If you have other risk factors for diabetes, such as a first degree relative with diabetes, overweight or obesity, high blood pressure, prediabetes, or a history of heart disease, you may be tested more often. If you are overweight and have other risk factors, such as high blood pressure and are planning to become , screening is recommended. EYE EXAM Have an eye exam every 2 to 4 years ages 40 to 54 and every 1 to 3 years ages 55 to 64. Your provider may recommend more frequent eye exams if you have vision problems or glaucoma risk. Have an eye exam that includes an examination of your retina (back of your eye) at least every year if you have diabetes. IMMUNIZATIONS Commonly needed vaccines include: Flu shot: get one every year COVID-19 vaccine: ask your provider what is best for you Tetanus-diphtheria and acellular pertussis (Tdap) vaccine: have as one of your tetanus-diphtheria vaccines if you did not receive it as an adolescent Tetanus-diphtheria: have a booster (or Tdap) every 10 years Varicella vaccine: receive 2 doses if you never had chickenpox or the varicella vaccine and were born in 1979 or after Hepatitis B vaccine: receive 2, 3, or 4 doses, depending on your exact circumstances, if you did not receive these as a child or adolescent, until age 59 Shingles (herpes zoster) vaccine: at or after age 50 Ask your provider if you should receive other immunizations, especially if you have certain medical conditions, such as diabetes or are at increased risk for some diseases such as pneumonia. INFECTIOUS DISEASE SCREENING Screening for hepatitis C: all adults ages 18 to 79 should get a one-time test for hepatitis C. Screening for human immunodeficiency virus (HIV): all people ages 15 to 65 should get a one-time test for HIV. Depending on your lifestyle and medical history, you may need to be screened for infections such as syphilis, chlamydia, and other infections. LUNG CANCER SCREENING You should have an annual screening for lung cancer with low-dose computed tomography (LDCT) if: You are age 50 to 80 years AND You have a 20 pack-year smoking history AND You currently smoke or have quit within the past 15 years OSTEOPOROSIS SCREENING If you are age 50 to 64 and have risk factors for osteoporosis, you should discuss screening with your provider. Risk factors can include long-term steroid use, low body weight, smoking, heavy alcohol use, having a fracture after age 50, or a family history of hip fracture or osteoporosis. Osteoporosis PHYSICAL EXAM All adults should visit their provider from time to time, even if they are healthy. The purpose of these visits is to: Screen for diseases Assess risk of future medical problems Encourage a healthy lifestyle Update vaccinations and other preventive care services Maintain a relationship with a provider in case of an illness Your height, weight, and body mass index (BMI) should be checked at every exam. During your exam, your provider may ask you about: Depression and anxiety Diet and exercise Alcohol and tobacco use Safety, such as use of seat belts and smoke detectors Your medicines and risk for interactions PROSTATE CANCER SCREENING If you're 55 through 69 years old, before having the test, talk to your provider about the pros and cons of having a PSA test. Ask about: Whether screening decreases your chance of dying from prostate cancer. Whether there is any harm from prostate cancer screening, such as side effects from testing or overtreatment of cancer when discovered. Whether you have a higher risk of prostate cancer than others. If you are age 55 or younger, screening is not generally recommended. You should talk with your provider about if you have a higher risk for prostate cancer. Risk factors include: Having a family history of prostate cancer (especially a brother or father) Being If you choose to be tested, the PSA blood test is repeated over time (yearly or less often), though the best frequency is not known. Prostate examinations are no longer routinely done on men with no symptoms. Prostate cancer SKIN EXAM Your provider may check your skin for signs of skin cancer, especially if you're at high risk. People at high risk include those who have had skin cancer before, have close relatives with skin cancer, or have a weakened immune system. TESTICULAR EXAM The [place] Preventive Services Task Force (USPSTF) now recommends against performing testicular self-exams. Doing testicular self-exams has been shown to have little to no benefit.
[2024-07-15 12:55] VITALS: BP 124/68; PULSE 91; RESP 13; TEMP 36.2; O2SAT 98; BMI 30.4
--- OUTSIDE RECORDS SUMMARY | 2024-07-15 13:56 | XMS_ITS | Encounter Summary ---
Author Organization [facility] Address [address] [place] [address] Care Team Providers Care Belt Lacer Name Role Phone Claudio Lynn Primary Care Provider [phone] Encounter Details Date Type Department Care Team Description 08/11/2023 Orders Only Medical Records [address] [place] [address] Alonso Gandara MD Social History Tobacco Use Types Packs/Day Years Used Date Smoking Tobacco: Former Cigarettes 1 15 Q uit: 09/04/1987 Smokeless Tobacco: Never Alcohol Use Standard Drinks/Week Comments Yes 0 (1 standard drink = 0.6 oz pure alcohol) 2 beers per day during othe week, more on the weekends Alcohol Habits Answer Date Recorded How often do you have a drin k containing alcohol? 4 or more times a week 04/12/2019 How many drinks containing a lcohol do you have on a typical day when you are drinking? 3 or 4 04/12/2019 How often do you have six or more drinks on one occasion? Not asked Sex Assigned at Date Recorded Not on file Job Start Date Occupation Industry Not on file Not on file Not on file documented as of this encounter Plan of Treatment Not on file documented as of this encounter Procedures Procedure Name Priority Date/Time Associated Diagnosis Comments OUTSIDE NUCLEAR STRESS TEST Routine 07/29/2023 documented in this encounter Results * OUTSIDE NUCLEAR STRESS TEST (07/29/2023) Alonso Gandara MD CARDIOLOGY documented in this encounter Visit Diagnoses Not on filedocumented in this encounter Care Teams Belt Lacer Relationship Specialty Start Date End Date Claudio Lynn [address] [place], [place] [id number] PCP - General Internal Medicine 04/09/22 documented as of this encounter
--- OUTSIDE RECORDS SUMMARY | 2024-07-15 13:56 | XMS_ITS | Patient Health Record ---
Author Organization [facility] Address [address] [place] [address] Care Team Providers Care Hvac Designer Name Role Phone Claudio Lynn Primary Care Provider Unavailab Reese Muir Unavailable [phone] Allergies No Known Allergies Reason For Referral [...] Problem Acquired hammer toe of right foot (1718961786318 105) Other hammer toe(s) (acquired), right foot (M20.41) Active confirmed Problem Acquired hammer toe of left foot ([id number] 103) Other hammer toe(s) (acquired), left foot (M20.42) Active confirmed Vital Signs Height 5ft 6in in 09/07/2023 Weight 180 lbs 09/07/2023 BMI 29.05 kg/m2 09/07/2023 Encounters Encounter Location Date Provider Diagnosis [facility] [address] [place] [address] 09/07/2023 Reese Friedman Other hammer toe(s) (acquired), [...] Date Coverage End Date [employer] [address] [place] [address] [id number] Ja Epps Self - patient is the insured Medical (General) History Medical History History ICD Code Arthritis High blood pressure Surgical History Surgery Date(Month/Year)
--- OUTSIDE RECORDS SUMMARY | 2024-07-15 13:56 | XMS_ITS | Encounter Summary ---
Author Organization [facility] Address [address] [place] [address] Care Team Providers Care Practice Or Student Teacher Name Role Phone Coleman Ferrari MD Primary Care Provider Barry Bender MD Primary Care Provider [phone] Claudio Lynn Primary Care Provider [phone] Encounter Details Date Type Department Care Team Description 01/14/2018 Transfer Records Medical Records [address] [place] [id number] Abstract, Provider Social History Tobacco Use Types Packs/Day Years Used Date Smoking Tobacco: Never Assessed Alcohol Habits Answer Date Recorded How often [...] on filedocumented in this encounter Care Teams Practice Or Student Teacher Relationship Specialty Start Date End Date Coleman Ferrari MD PCP - General Internal Medicine 12/15/17 02/13/21 Barry Becerra MD [address] [place] [address] [id number] PCP - General Internal Medicine 02/14/21 04/08/22 Claudio Lynn [address] [place] [address] [id number] PCP - General Internal Medicine 04/09/22 documented as of this encounter
--- OUTSIDE RECORDS SUMMARY | 2024-07-15 13:56 | XMS_ITS | Clinical Summary ---
Author Organization [employer] Address [address] [place] [address] Care Team Providers Care Automatic Chief Name Role Phone Unavailable Primary Care Provider Unavailabl e Social History Tobacco Use Types Packs/Day Years Used Date Smoking Tobacco: Never Assessed Sex and Gender Information Value Date Recorded Sex Assigned at Not on file Legal Sex Male 1:[facility] PM [facility] Gender Identity Not on file Sexual Orientation Not on file Plan of Treatment Not on file Insurance
--- OUTSIDE RECORDS SUMMARY | 2024-07-15 13:56 | XMS_ITS | Encounter Summary ---
Author Organization [facility] Address [address] [place] [address] Care Team Providers Care Automobile Appraiser Name Role Phone Coleman Ferrari MD Primary Care Provider Barry Bender MD Primary Care Provider [phone] Claudio Lynn Primary Care Provider [phone] Reason for Visit * Reason Onset Date Comments Error 07/10/2020 Encounter Details Date Type Department Care Team Description 07/10/2020 Refill Adult Medicine [address] [id number] Coleman Ferrari MD Error Social History Tobacco Use Types Packs/Day Years [...] file Not on file Not on file COVID-19 Exposure Response Date Recorded In the last month, have you been in contact with someone who was confirmed or suspected to have Coronavirus / COVID-19? Unable to assess 07/11/2020 9:07 AM EST documented as of this encounter Miscellaneous Notes * Telephone Encounter - Macy Oquendo - 07/10/2020 2:13 PM EST Error documented in this encounter Plan of Treatment Not on file documented as of this encounter Visit Diagnoses Not on filedocumented in this encounter Care Teams Automobile Appraiser Relationship Specialty Start Date End Date Coleman Ferrari MD PCP - General Internal Medicine 12/15/17 02/13/21 Barry Becerra MD [address] [place] [id number] PCP - General Internal Medicine 02/14/21 04/08/22 Claudio Lynn [address] [place] [id number] PCP - General Internal Medicine 04/09/22 documented as of this encounter
--- OUTSIDE RECORDS SUMMARY | 2024-07-15 13:56 | XMS_ITS ---
Author Organization [facility] Address [address] [place] [address] Care Team Providers Care Dental Laboratory Worker Name Role Phone Shane Claudio Primary Care Provider UnavailReese Chen Unavailable [phone] Allergies No Known Allergies REASON FOR VISIT [...] Problem Acquired hammer toe of right foot ([id number] 105) Other hammer toe(s) (acquired), right foot (M20.41) Active confirmed Problem Acquired hammer toe of left foot ([id number] 103) Other hammer toe(s) (acquired), left foot (M20.42) Active confirmed Vital Signs Height 5ft 6in in 09/07/2023 Weight 180 lbs 09/07/2023 BMI 29.05 kg/m2 09/07/2023 Encounters Encounter Location Date Provider Diagnosis [facility] [address] [place] [address] 09/07/2023 Reese Friedman Other hammer toe(s) (acquired), [...] Notes * Ja VINCENTDOB: (63 yo M)Acc No.[id number]:09/07/2023 Progress Notes Patient:?Ja Vincent Provider:?Reese Friedman DPM :1960???Age:63 Y???Sex:Male Sameer e:09/07/2023 Address:[address] [place], [place] [id number] Pcp:Claudio Lynn Subjective: * Chief Complaints: * [...] yes, walking, swimming. ?Marital status: . 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 * Medications:?TakingLisinopri l 20 MG Tablet 1 [...] DPM Date:? 024 Generated for Shailesh bingham/Windy/eTransmitting on:?07/15/2024 01:55 PM EST History and Physical Notes * HPI [...]
--- OUTSIDE RECORDS SUMMARY | 2024-07-15 13:56 | XMS_ITS | Encounter Summary ---
Author Organization [facility] Address [address] [place] [address] Care Team Providers Care Dough Puncher Name Role Phone Barry Becerra MD Primary Care Provider [phone] Claudio Lynn Primary Care Provider [phone] Reason for Visit * Reason Onset Date Comments Provider Call Back 02/15/2021 Encounter Details Date Type Department Care Team Description 02/15/2021 Telephone Adult Medicine [facility] [address] [place], [place] [phone] Barry Becerra MD [address] [place], [place] [id number] Provider Call Back Social History Tobacco Use Types Packs/Day Years [...] have Coronavirus / COVID-19? Unable to assess 02/15/2021 3:57 PM EDT documented as of this encounter Miscellaneous Notes * Telephone Encounter - Donna Magañado - 02/15/2021 1:53 PM EDT See encounter from earlier today. Patient calling back states he would like to speak with nurse again. He states nurse offered appt on 02/26/21 with PCP, nothing scheduled. Pt states he needs form filled out MAY in order to get back to work. documented in this encounter Plan of Treatment Not on file documented as of this encounter Visit Diagnoses Not on filedocumented in this encounter Care Teams Dough Puncher Relationship Specialty Start Date End Date Barry Becerra MD [address] [place] [address] PCP - General Internal Medicine 02/14/21 04/08/22 Claudio Lynn [address] [place] [id number] PCP - General Internal Medicine 04/09/22 documented as of this encounter
--- OUTSIDE RECORDS SUMMARY | 2024-07-15 13:56 | XMS_ITS | Encounter Summary ---
Author Organization [facility] Address [address] [place] [address] Care Team Providers Care Landscaper Name Role Phone Claudio Lynn Primary Care Provider [phone] Encounter Details Date Type Department Care Team Description 08/20/2023 Tower Erector Report Medical Records [address] [place] [address] Lauren Randle, FLORAL DECORATOR-ELIZABETH Social History Tobacco Use Types Packs/Day Years [...] on filedocumented in this encounter Care Teams Landscaper Relationship Specialty Start Date End Date Claudio Lynn [address] [place] [address] PCP - General Internal Medicine 04/09/22 documented as of this encounter
--- OUTSIDE RECORDS SUMMARY | 2024-07-15 13:56 | XMS_ITS | Encounter Summary ---
Author Organization [employer] Address [address] [place] [address] Care Team Providers Care Independent Crop Consultant Name Role Phone Unavailable Primary Care Provider [...]
== END 2024-07-15 14:06 | disposition home or self-care (01) ==
PROVIDERS: PCP Nurse Practitioner Family; Visit Provider Nurse Practitioner Family
DX: Z00.00 Encounter for general adult medical examination without abnormal findings (principal); I77.810 Thoracic aortic ectasia; I73.9 Peripheral vascular disease, unspecified; I10 Essential (primary) hypertension; E78.2 Mixed hyperlipidemia; D51.3 Other dietary vitamin B12 deficiency anemia; Z78.9 Other specified health status; I35.9 Nonrheumatic aortic valve disorder, unspecified; Z95.818 Presence of other cardiac implants and grafts; E55.9 Vitamin D deficiency, unspecified; Z68.30 Body mass index [BMI] 30.0-30.9, adult; E66.811 Obesity, class 1

== ENCOUNTER → 2024-07-15 12:12 | Outpatient (BNVA) | payer OTHER, SELFPAY | PROVIDERS: PCP Nurse Practitioner Family; Visit Provider Nurse Practitioner Family | DX: Z00.00 Encounter for general adult medical examination without abnormal findings (principal); I10 Essential (primary) hypertension; I77.810 Thoracic aortic ectasia; E78.2 Mixed hyperlipidemia; D51.3 Other dietary vitamin B12 deficiency anemia; I35.9 Nonrheumatic aortic valve disorder, unspecified; I73.9 Peripheral vascular disease, unspecified; E55.9 Vitamin D deficiency, unspecified; E66.811 Obesity, class 1; Z68.30 Body mass index [BMI] 30.0-30.9, adult; Z95.818 Presence of other cardiac implants and grafts; Z79.899 Other long term (current) drug therapy; Z78.9 Other specified health status | CPT/HCPCS: 96127 ==

== ENCOUNTER → 2024-08-05 23:59 | Outpatient (BNV) | payer OTHER, SELFPAY ==
--- NOTE | 2024-08-10 13:14 | MHC.OFFVIS ---
Intake Visit Reasons: Remote ILR check- [employer] Allergies No Known Allergies Allergy (Verified 07/15/24 12:25) [facility] Medical History (Updated 07/22/24 @ 15:26 by Princess Randle [facility]) Arthritis Alcohol use Syncope Cardiac arrest HTN (hypertension) Surgical History (Updated 07/22/24 @ 15:26 by Princess Randle [facility]) Colon cancer screening declined (~2024) History of vasectomy History of tonsillectomy Family History Daughter Bipolar 1 disorder Other Mental health disorder Social History Household Members: Spouse Housing: House Do you presently have visiting nurse or other home services: No Alcohol intake: current Alcohol intake frequency: 0-2 drinks per day Alcohol type: beer Patient Tobacco Use Status: Former Tobacco user Tobacco use type: Cigarette Cigarettes Per Day: 1 Years Smoked: 20 e-Cigarette/Vaping Use: Never Used service: No Current occupational status: employed Current occupation: [employer] Current occupational exposures/hazards: No Sexual orientation: Unable to collect Gender identity: Unable to collect Cognitive needs: No Hearing needs: No Vision needs: Yes (wears glasses) Office Procedures Cardiac Device Check Cardiac Device Check Details: Remote implantable loop recorder report generated 07/28/2024. No atrial fibrillation or pauses noted. Total burden of PVCs at 0.4% 13626-Thkyzy Cardiac Interrogation, subcut cardiac rhythm monitor Procedure code (CPT) selection complete Assessment & Plan Assessment & Plan (1) Implantable loop recorder present: Code(s): Z95.818 - Presence of other cardiac implants and grafts Category: Medical Plan: See above Coding Level of Care Code Procedure Only Diagnoses Implantable loop recorder present Z95.818 CPT Codes Cardiac Device Check - Cardiac Device 16: 14791-Fjxuyf Cardiac Interrogation, subcut cardiac rhythm monitor ([id number])
== END ==
PROVIDERS: PCP Nurse Practitioner Family; Visit Provider Internal Medicine Cardiovascular Disease
DX: I49.3 Ventricular premature depolarization (principal); Z95.818 Presence of other cardiac implants and grafts
CPT/HCPCS: 93298

== ENCOUNTER → 2024-09-04 23:59 | Outpatient (BNV) | payer OTHER, SELFPAY ==
--- NOTE | 2024-09-06 13:16 | MHC.OFFVIS ---
Intake Visit Reasons: Remote ILR check- [employer] Allergies No Known Allergies Allergy (Verified 07/15/24 12:25) [facility] Medical History (Updated 07/22/24 @ 15:26 by Princess Randle [facility]) Arthritis Alcohol use Syncope Cardiac arrest HTN (hypertension) Surgical History (Updated 07/22/24 @ 15:26 by Princess Randle [facility]) Colon cancer screening declined (~2024) History of vasectomy History of tonsillectomy Family History Daughter Bipolar 1 disorder Other Mental health disorder Social History Household Members: Spouse Housing: House Do you presently have visiting nurse or other home services: No Alcohol intake: current Alcohol intake frequency: 0-2 drinks per day Alcohol type: beer Patient Tobacco Use Status: Former Tobacco user Tobacco use type: Cigarette Cigarettes Per Day: 1 Years Smoked: 20 e-Cigarette/Vaping Use: Never Used service: No Current occupational status: employed Current occupation: [employer] Current occupational exposures/hazards: No Sexual orientation: Unable to collect Gender identity: Unable to collect Cognitive needs: No Hearing needs: No Vision needs: Yes (wears glasses) Office Procedures Cardiac Device Check Cardiac Device Check Details: Remote implantable loop recorder report generated 09/04/2024. No atrial fibrillation pauses noted. Rare PVCs noted with total burden of 0.4% 80068-Idxqfp Cardiac Interrogation, subcut cardiac rhythm monitor Procedure code (CPT) selection complete Assessment & Plan Assessment & Plan (1) Implantable loop recorder present: Code(s): Z95.818 - Presence of other cardiac implants and grafts Category: Medical Plan: See above Coding Level of Care Code Procedure Only Diagnoses Implantable loop recorder present Z95.818 CPT Codes Cardiac Device Check - Cardiac Device 16: 46379-Anegcl Cardiac Interrogation, subcut cardiac rhythm monitor ([id number])
== END ==
PROVIDERS: PCP Nurse Practitioner Family; Visit Provider Internal Medicine Cardiovascular Disease
DX: I49.3 Ventricular premature depolarization (principal); Z95.818 Presence of other cardiac implants and grafts
CPT/HCPCS: 93298

== ENCOUNTER → 2024-10-04 23:59 | Outpatient (BNV) | payer OTHER, SELFPAY ==
--- NOTE | 2024-10-08 12:27 | MHC.OFFVIS ---
Intake Visit Reasons: Remote ILR check- [employer] Allergies No Known Allergies Allergy (Verified 07/15/24 12:25) [facility] Medical History (Updated 07/22/24 @ 15:26 by Princess Randle [facility]) Arthritis Alcohol use Syncope Cardiac arrest HTN (hypertension) Surgical History (Updated 07/22/24 @ 15:26 by Princess Randle [facility]) Colon cancer screening declined (~2024) History of vasectomy History of tonsillectomy Family History Daughter Bipolar 1 disorder Other Mental health disorder Social History Household Members: Spouse Housing: House Do you presently have visiting nurse or other home services: No Alcohol intake: current Alcohol intake frequency: 0-2 drinks per day Alcohol type: beer Patient Tobacco Use Status: Former Tobacco user Tobacco use type: Cigarette Cigarettes Per Day: 1 Years Smoked: 20 e-Cigarette/Vaping Use: Never Used service: No Current occupational status: employed Current occupation: [employer] Current occupational exposures/hazards: No Sexual orientation: Unable to collect Gender identity: Unable to collect Cognitive needs: No Hearing needs: No Vision needs: Yes (wears glasses) Office Procedures Cardiac Device Check Cardiac Device Check Details: Remote implantable loop recorder report generated 10/04/2024. No pauses noted. Total burden of PVCs at 0.4%. No AFib noted 58526-Prvalo Cardiac Interrogation, subcut cardiac rhythm monitor Procedure code (CPT) selection complete Assessment & Plan Assessment & Plan (1) Implantable loop recorder present: Code(s): Z95.818 - Presence of other cardiac implants and grafts Category: Medical Plan: See above Coding Level of Care Code Procedure Only Diagnoses Implantable loop recorder present Z95.818 CPT Codes Cardiac Device Check - Cardiac Device 16: 60530-Raaacn Cardiac Interrogation, subcut cardiac rhythm monitor ([id number])
== END ==
PROVIDERS: PCP Nurse Practitioner Family; Visit Provider Internal Medicine Cardiovascular Disease
DX: I49.3 Ventricular premature depolarization (principal); Z95.818 Presence of other cardiac implants and grafts
CPT/HCPCS: 93298

== ENCOUNTER → 2024-11-03 23:59 | Outpatient (BNV) | payer OTHER, SELFPAY ==
--- NOTE | 2024-11-09 14:49 | MHC.OFFVIS ---
Intake Visit Reasons: Remote ILR check- [employer] Allergies No Known Allergies Allergy (Verified 07/15/24 12:25) [facility] Medical History (Updated 07/22/24 @ 15:26 by Princess Randle [facility]) Arthritis Alcohol use Syncope Cardiac arrest HTN (hypertension) Surgical History (Updated 07/22/24 @ 15:26 by Princess Randle [facility]) Colon cancer screening declined (~2024) History of vasectomy History of tonsillectomy Family History Daughter Bipolar 1 disorder Other Mental health disorder Social History Household Members: Spouse Housing: House Do you presently have visiting nurse or other home services: No Alcohol intake: current Alcohol intake frequency: 0-2 drinks per day Alcohol type: beer Patient Tobacco Use Status: Former Tobacco user Tobacco use type: Cigarette Cigarettes Per Day: 1 Years Smoked: 20 e-Cigarette/Vaping Use: Never Used service: No Current occupational status: employed Current occupation: [employer] Current occupational exposures/hazards: No Sexual orientation: Unable to collect Gender identity: Unable to collect Cognitive needs: No Hearing needs: No Vision needs: Yes (wears glasses) Office Procedures Cardiac Device Check Cardiac Device Check Details: Remote implantable loop recorder report generated 11/03/2024. No significant arrhythmias or pauses noted. Rare PVCs noted 48587-Zuddjn Cardiac Interrogation, subcut cardiac rhythm monitor Procedure code (CPT) selection complete Assessment & Plan Assessment & Plan (1) Implantable loop recorder present: Code(s): Z95.818 - Presence of other cardiac implants and grafts Category: Medical Plan: See above Coding Level of Care Code Procedure Only Diagnoses Implantable loop recorder present Z95.818 CPT Codes Cardiac Device Check - Cardiac Device 16: 43136-Ghediz Cardiac Interrogation, subcut cardiac rhythm monitor ([id number])
== END ==
PROVIDERS: PCP Nurse Practitioner Family; Visit Provider Internal Medicine Cardiovascular Disease
DX: I49.3 Ventricular premature depolarization (principal); Z95.818 Presence of other cardiac implants and grafts
CPT/HCPCS: 93298

== ENCOUNTER → 2024-11-03 23:59 | Outpatient (BNV) | payer OTHER, SELFPAY ==
--- NOTE | 2024-11-15 14:42 | A.OFFVIS_ITS ---
Intake Visit Reasons: Remote ILR check- [employer] Allergies No Known Allergies Allergy (Verified 07/15/24 12:25) [facility] Medical History (Updated 07/22/24 @ 15:26 by Princess Randle [facility]) Arthritis Alcohol use Syncope Cardiac arrest HTN (hypertension) Surgical History (Updated 07/22/24 @ 15:26 by Princess Randle [facility]) Colon cancer screening declined (~2024) History of vasectomy History of tonsillectomy Family History Daughter Bipolar 1 disorder Other Mental health disorder Social History Household Members: Spouse Housing: House Do you presently have visiting nurse or other home services: No Alcohol intake: current Alcohol intake frequency: 0-2 drinks per day Alcohol type: beer Patient Tobacco Use Status: Former Tobacco user Tobacco use type: Cigarette Cigarettes Per Day: 1 Years Smoked: 20 e-Cigarette/Vaping Use: Never Used service: No Current occupational status: employed Current occupation: [employer] Current occupational exposures/hazards: No Sexual orientation: Unable to collect Gender identity: Unable to collect Cognitive needs: No Hearing needs: No Vision needs: Yes (wears glasses) Office Procedures Cardiac Device Check Cardiac Device Check Details: Remote implantable loop recorder report generated 11/03/2024. No atrial fibrillation or pauses noted. Rare PVCs noted with total burden of 0.3% 15477-Fbnswt Cardiac Interrogation, subcut cardiac rhythm monitor Procedure code (CPT) selection complete Assessment & Plan Assessment & Plan (1) Implantable loop recorder present: Code(s): Z95.818 - Presence of other cardiac implants and grafts Category: Medical Plan: See above Coding Level of Care Code Procedure Only Diagnoses Implantable loop recorder present Z95.818 CPT Codes Cardiac Device Check - Cardiac Device 16: 57229-Nvpukw Cardiac Interrogation, subcut cardiac rhythm monitor ([id number])
== END ==
PROVIDERS: PCP Nurse Practitioner Family; Visit Provider Internal Medicine Cardiovascular Disease
DX: I49.3 Ventricular premature depolarization (principal); Z95.818 Presence of other cardiac implants and grafts
CPT/HCPCS: 93298

== ENCOUNTER → 2024-12-03 23:59 | Outpatient (BNV) | payer OTHER, SELFPAY ==
--- NOTE | 2024-12-13 15:41 | A.OFFVIS_ITS ---
Intake Visit Reasons: Remote ILR check- [employer] Allergies No Known Allergies Allergy (Verified 07/15/24 12:25) [facility] Medical History (Updated 07/22/24 @ 15:26 by Princess Randle [facility]) Arthritis Alcohol use Syncope Cardiac arrest HTN (hypertension) Surgical History (Updated 07/22/24 @ 15:26 by Princess Randle [facility]) Colon cancer screening declined (~2024) History of vasectomy History of tonsillectomy Family History Daughter Bipolar 1 disorder Other Mental health disorder Social History Household Members: Spouse Housing: House Do you presently have visiting nurse or other home services: No Alcohol intake: current Alcohol intake frequency: 0-2 drinks per day Alcohol type: beer Patient Tobacco Use Status: Former Tobacco user Tobacco use type: Cigarette Cigarettes Per Day: 1 Years Smoked: 20 e-Cigarette/Vaping Use: Never Used service: No Current occupational status: employed Current occupation: [employer] Current occupational exposures/hazards: No Sexual orientation: Unable to collect Gender identity: Unable to collect Cognitive needs: No Hearing needs: No Vision needs: Yes (wears glasses) Office Procedures Cardiac Device Check Cardiac Device Check Details: Remote implantable loop recorder report generated 12/03/2024. No pauses or atrial fibrillation noted. Rare PVCs noted with total burden of 0.4% [id number]-Iivhaw Cardiac Interrogation, subcut cardiac rhythm monitor Procedure code (CPT) selection complete Assessment & Plan Assessment & Plan (1) Implantable loop recorder present: Code(s): Z95.818 - Presence of other cardiac implants and grafts Category: Medical Plan: See above Coding Level of Care Code Procedure Only Diagnoses Implantable loop recorder present Z95.818 CPT Codes Cardiac Device Check - Cardiac Device 16: 30924-Hnbgas Cardiac Interrogation, subcut cardiac rhythm monitor ([id number])
== END ==
PROVIDERS: PCP Nurse Practitioner Family; Visit Provider Internal Medicine Cardiovascular Disease
DX: I49.3 Ventricular premature depolarization (principal); Z95.818 Presence of other cardiac implants and grafts
CPT/HCPCS: 93298

== ENCOUNTER → 2024-12-12 14:48 | Outpatient (REF) | payer OTHER, SELFPAY ==
--- NOTE | 2024-12-12 14:53 | CA_ITS ---
Transthoracic Echocardiogram Patient (Last, First, Middle): Ja Epps F Gender: Male Date of : 1960 Age: 64 Procedure Date: 12/12/2024 Procedure Type: Transthoracic Echocardiogram Location: OP Height: 167.64 cm Weight: 85.28 kg BSA: 1.95 m2 Heart Rate: bpm BP: 124 / 68 mmHg Pharmacist: MATHEW Referring MD: Alonso Gandara MD Symptoms: I77.810 - Thoracic aortic ectasia Study Quality: Fair, contrast ECG Rhythm: Sinus Conclusions: - The left ventricular systolic function is low normal. The visually estimated ejection fraction is between 50-55%. - No obvious valvular pathology seen on this study. - There is mild dilatation of the ascending aorta measuring 4.00 cm. Findings Procedure Information Contrast agent, definity, is being given per protocol without apparent complications. Left Ventricle Normal left ventricular cavity size. The left ventricular systolic function is low normal. The visually estimated ejection fraction is between 50-55%. There is mild global hypokinesis. Diastolic function is normal for age. There is mild septal asymmetric hypertrophy. Right Ventricle Normal right ventricular cavity size and systolic function. Atria Both atria are normal in size. Aortic Valve There is a normal trileaflet aortic valve. There is mild calcification of the aortic valve. There is no aortic valve stenosis. There is trace (trivial) aortic valve regurgitation. Mitral Valve The mitral valve appears normal. There is no mitral valve regurgitation. There is no mitral valve stenosis. Pulmonic Valve The pulmonic valve is likely normal. Tricuspid Valve There is trace tricuspid valve regurgitation. There is no evidence of pulmonary hypertension. Great Vessels There is mild dilatation of the ascending aorta measuring 4.00 cm. Venous The inferior vena cava is normal in size and collapses greater than 50% with inspiration. Pericardium/Pleural There is no evidence of pericardial effusion. Prior Study Comparison Changes noted compared to prior study dated: 07/29/2023. Slight decrease in LVEF. Recommendations, Care & Conclusions No obvious valvular pathology seen on this study. Measurements 2D Linear Measurements IVSd: 1.19 0.6-0.9/0.6-1.0 cm LVIDd: 5.03 3.9-5.3/4.2-5.9 cm LVIDd Index: 2.58 2.4-3.2/2.2-3.1 cm/m2 LVIDs: 3.08 2.0-3.6 cm LVPWd: 0.94 0.7-1.1 cm LA Diam: 3.40 2.7-3.8/3.0-4.0 cm LAIDs Index: 1.74 1.5-2.3 cm/m2 LV Mass: 248.59 67-162/88-224 g LV Mass Index: 127.48 43-95/49-115 g/m2 LVOT Diam: 2.20 3.0+(-)1.3 cm 2D Systolic Function EF 4C: 55.70 >55% EF 2C: 50.40 >55% EF BiP: 52.90 >55% Mitral Valve MV Pk E: 0.54 MV PK A: 0.77 MV Decel Time: 357.00 E/A: 0.70 E'Lateral: 7.07 E'Medial: 6.74 E/E' Med: 8.10 E/E' Lat: 7.70 PHT: 105.00 MVA PHT: 2.10 Decel Rincon: 1.52 Aortic Valve AoV Pk Live: 1.37 AoV Mn Live: 0.99 AoV VTI: 0.28 AoV Pk Grad: 8.00 Aov Mn Grad: 4.00 HILARY Cont.VTI: 2.97 LVOT LVOT Pk Live: 1.15 LVOT Mn Live: 0.74 LVOT VTI: 0.22 LVOT Pk Grad: 5.00 LVOT Mn Grad: 3.00 LVOT Diam: 2.20 LVOT Area: 3.80 Diastolic Function MV Pk E: 0.54 MV Pk A: 0.77 E/A: 0.70 E'Medial: 6.74 E/E' Med: 8.10 E' Laterial: 7.07 E/E' Lat: 7.70 Right Ventricle TAPSE (mm): 20.40 TVS' Live: 15.00 Tricuspid Valve TR Pk Live: 2.06 TR Pk Grad: 17.00 RA Press: 3.00 RVSP: 20.00 Great Vessels Aorta Sinus of Valsalva: 3.71 2.0-3.5 cm Ao Asc: 4.00 2.1-3.4 cm Updated in Other Vendor System with Status of Final Ramana Velázquez MD electronically signed on 12/14/2024 10:48:48 AM with status of Final
--- OUTSIDE RECORDS SUMMARY | 2024-12-12 14:53 | XMS_ITS | Patient Health Record ---
[facility] Address [address] [place] [address] Care Team Providers Care French Folder Name Role Phone Claudio Lynn Primary Care Provider Reese Stokes Unavailable [phone] Allergies No Known Allergies Reason For Referral [...] Problem Status W/U Status Risk Notes Problem Other hammer toe(s) (acquired), right foot (M20.41) Active confirmed Problem Acquired hammer toe of left foot ([id number] 103) Other hammer toe(s) (acquired), left foot (M20.42) Active confirmed Plan Of Treatment No Information Insurance Providers Payer Name Payer Address Payer Phone Subscriber Number Group Number Insured Name Patient Relationship to Insured Coverage Start Date Coverage End Date [employer] [address] [place] [phone] [id number] Ja Epps Self - patient is the insured Medical (General) History Medical History History ICD Code Arthritis High blood pressure Surgical History Surgery Date(Month/Year)
--- OUTSIDE RECORDS SUMMARY | 2024-12-12 14:53 | XMS_ITS ---
[facility] Care Team Organization Name Specialty Phone Email Start Date End Da te [facility]ALV[facility] Primary Care 03/18/2022
--- OUTSIDE RECORDS SUMMARY | 2024-12-12 14:53 | XMS_ITS | Clinical Summary ---
Author Organization [facility] Address [address] [place] [address] Care Team Providers Care Top Precipitator Operator Helper Name Role Phone Unavailable Primary Care Provider Unavailabl e Social History Tobacco Use Types Packs/Day Years Used Date Smoking Tobacco: Never Assessed Sex and Gender Information Value Date Recorded Sex Assigned at Not on file Legal Sex Male 1:11 PM [facility] Gender Identity Not on file Sexual Orientation Not on file Plan of Treatment Not on file Insurance
== END ==
LOC: HO.CARD 14:48
PROVIDERS: PCP Nurse Practitioner Family; Visit Provider Internal Medicine Cardiovascular Disease
DX: I77.810 Thoracic aortic ectasia (principal); I35.9 Nonrheumatic aortic valve disorder, unspecified
CPT/HCPCS: 93306; Q9957

== ENCOUNTER → 2024-12-12 14:53 | Outpatient (BNV) | payer OTHER, SELFPAY | PROVIDERS: PCP Nurse Practitioner Family; Visit Provider Internal Medicine | DX: I42.2 Other hypertrophic cardiomyopathy (principal); I77.810 Thoracic aortic ectasia | CPT/HCPCS: 93306 ==

== ENCOUNTER 2024-12-15 08:22 | Outpatient (AMB) | payer OTHER, SELFPAY ==
--- NOTE | 2024-12-15 08:22 | A.OFFVIS_ITS ---
Vital Signs 12/15/24 08:34 Height 5 ft 6 in Weight 180 lb 12.465 oz BMI 29.2 BP 134/86 Blood Pressure Location Lt brachial Position Sitting Pulse 91 Pulse Source Monitor Intake Visit Reasons: 1 yr follow up Intake Note: 1 year follow up with ekg and ilr feeling okay Corrective Therapy Aide Teacher Required: No Allergies No Known Allergies Allergy (Verified 07/15/24 12:25) Medication List - Last Reviewed 12/15/24 by Juan Carlos Garza CNA amlodipine 5 mg PO DAILY lisinopril 20 mg PO DAILY mecobalamin (vitamin B12) 1,000 mcg PO DAILY multivitamin 1 tab PO DAILY HPI Comments Details: Ja comes for follow-up. Has lot of personal stress. His has been diagnose some medical condition that he is not sure of. He has no cardiac symptoms. He has not had any lightheadedness, syncope. No palpitations. His implantable loop recorder has shown no significant arrhythmias by remote monitoring. His blood pressure is generally well controlled. His recent echoc ardiogram shows normal LV ejection fraction with mildly dilated ascending aorta. [facility] Medical History (Updated 12/15/24 @ 08:56 by Alonso Gandara MD) Cardiac arrest Arthritis Alcohol use Syncope HTN (hypertension) Surgical History Colon cancer screening declined (~2024) History of vasectomy History of tonsillectomy Family History Daughter Bipolar 1 disorder Other Mental health disorder Social History Household Members: Spouse Housing: House Do you presently have visiting nurse or other home services: No Alcohol intake: current Alcohol intake frequency: 0-2 drinks per day Alcohol type: beer Patient Tobacco Use Status: Former Tobacco user Tobacco use type: Cigarette Cigarettes Per Day: 1 Years Smoked: 20 e-Cigarette/Vaping Use: Never Used service: No Current occupational status: employed Current occupation: [employer] Current occupational exposures/hazards: No Sexual orientation: Unable to collect Gender identity: Unable to collect Cognitive needs: No Hearing needs: No Vision needs: Yes (wears glasses) Review of Systems Const Denies chills, Denies fatigue, Denies fever(s), Denies frequent falls, Denies weakness, Denies weight gain and Denies weight loss ENT Denies dizziness Card Denies chest pain, Denies leg edema, Denies lightheadedness, Denies palpitations, Denies dyspnea, Denies dyspnea on exertion, Denies orthopnea and Denies other (loss of consciousness) Resp Denies cough, Denies dyspnea and Denies dyspnea on exertion GI Denies hematochezia and Denies change in stool character Musc Denies abnormal gait, Denies muscle weakness, Denies numbness, Denies radiating pain into limb and Denies tingling Neuro Denies abnormal gait, Denies dizziness, Denies frequent falls, Denies numbness, Denies tingling and Denies weakness Endo Denies fatigue and Denies palpitations Physical Exam Vital Signs: Last Vital Signs Pulse 91 12/15/24 08:34 BP 134/86 12/15/24 08:34 Const General: cooperative, healthy appearing, comfortable and no acute distress Orientation/consciousness: patient oriented x3 Neck Neck: Yes normal visual inspection and Yes no JVD Chest Other: ILR site with steristrips that are loose - strips removed, incision well aproximated, small scan along incision, no redness, swelling or drainage. Chest palpation & inspection: normal inspection of the chest Resp Effort & Inspection: normal respiratory effort Auscultation: clear to auscultation bilaterally, no crackles, no rales, no rhonchi and no wheezes Cardio Jugular venous distension: no JVD Rate: regular rate Rhythm: regular rhythm Heart sounds: S1 normal heart sound present, S2 normal heart sound present, no murmurs and no rubs Neuro General: patient oriented x3 Extrem General: Yes normal to inspection, No no pedal edema and No calf tenderness Psych Appearance: grossly normal Mental Status: mental status grossly normal Speech and movement: Normal speech and movement present Office Procedures Cardiac Device Check Cardiac Device Check Details: Implantable loop recorder in place. Battery life is adequate. No pauses or significant tachyarrhythmias noted. Rare PVCs noted. 69032-Ceiwvol Device Interrogation, subcut cardiac rhythm monitor Procedure code (CPT) selection complete EKG Details: EKG shows normal sinus rhythm with normal EKG 57671-Ulaqjyyiihcokouup, Complete Assessment & Plan Assessment & Plan (1) Ascending aorta dilatation: Comment: (echocardiogram 07/29/2023) dilation of the ascending aorta 4 cm Ejection fraction 62% mild calcification of the aortic valve, trace aortic valve regurg. Moderate focal hypertrophy of the basal septum Code(s): I77.810 - Thoracic aortic ectasia Category: Medical Plan: Mild ascending aortic dilatation which has remained stable does not require any surgical interventions. Will continue monitor every couple years with echocardiogram. Continue aggressive blood pressure control. Continue current therapy. Blood pressure is well optimized advised to monitor blood pressure, see below. (2) HTN (hypertension): Comment: Goal less than 130/80 Tolerating compliant of amlodipine 5 mg daily, lisinopril 20 mg daily. Code(s): I10 - Essential (primary) hypertension Category: Medical Qualifiers: Hypertension type: primary hypertension Qualified Code(s): I10 - Essential (primary) hypertension Plan: Blood pressure is currently well optimized on current therapy. Importance of good blood pressure control was discussed. Low-salt diet was discussed. Risks monitor blood pressure and maintain a log. Goal blood pressure less than 130/84. Advised to maintain adequate aerobic capacity. Avoidance of alcohol abuse was discussed. (3) Syncope: Code(s): R55 - Syncope and collapse Plan: Patient has syncopal episode that was labeled as cardiac arrest while he is in the emergency room visiting his . He had brief CPR although not sure what was required. Appear to be vasovagal however he is unclear at that time and had a implantable loop recorder placed more than a year ago. At this point time the implantable loop recorder has shown no significant pauses or av conduction abnormality or significant arrhythmias. At this point time the implantable loop recorder will be removed. Risks and benefits were discussed. Follow up in the clinic for wound check after the removal and will follow up with him in 2 years after echocardiogram. Coding Level of Care Code Est Pt Level 4 (15191) Complex EM visit Add On G2211 Diagnoses Ascending aorta dilatation I77.810 Primary hypertension I10 Hypertension type: primary hypertension Syncope R55 CPT Codes Cardiac Device Check - Cardiac Device 11: [id number]-Ctnctfc Device Interrogation, subcut cardiac rhythm monitor ([id number]) EKG - CPT: 28270-Pvcggdgeoevqbeasc, Complete ([id number])
--- OUTSIDE RECORDS SUMMARY | 2024-12-15 08:33 | XMS_ITS | Clinical Summary ---
Author Organization [facility] Address [address] [place] [address] Care Team Providers Care Prekindergarten Teacher Name Role Phone Unavailable Primary Care Provider Unavailabl e Social History Tobacco Use Types Packs/Day Years Used Date Smoking Tobacco: Never Assessed Sex and Gender Information Value Date Recorded Sex Assigned at Not on file Legal Sex Male 1:11 PM [facility] Gender Identity Not on file Sexual Orientation Not on file Plan of Treatment Not on file Insurance
--- OUTSIDE RECORDS SUMMARY | 2024-12-15 08:33 | XMS_ITS | Encounter Summary ---
Author Organization [facility] Address [address] [place] [address] Care Team Providers Care Animal Bounty Hunter Name Role Phone Coleman Ferrari MD Primary Care Provider Barry Bender MD Primary Care Provider [phone] Claudio Lynn Primary Care Provider [phone] Encounter Details Date Type Department Care Team Description 03/19/2018 Release of Information Medical Records [address] [place] [address] Abstract, Provider Social History Tobacco Use Types Packs/Day Years Used Date Smoking Tobacco: Former Cigarettes 1 15 Q uit: 09/04/1987 Smokeless Tobacco: Never Alcohol Habits Answer Date Recorded How often [...] on filedocumented in this encounter Care Teams Animal Bounty Hunter Relationship Specialty Start Date End Date Coleman Ferrari MD PCP - General Internal Medicine 12/15/17 02/13/21 Barry Becerra MD [address] [place] [address] PCP - General Internal Medicine 02/14/21 04/08/22 Claudio Lynn [address] [place] [address] [id number] PCP - General Internal Medicine 04/09/22 documented as of this encounter
--- OUTSIDE RECORDS SUMMARY | 2024-12-15 08:33 | XMS_ITS | Patient Health Record ---
[facility] Address [address] [place] [address] Care Team Providers Care Chronic Disease Manager Name Role Phone Claudio Lynn Primary Care Provider Reese Stokes Unavailable [phone] Allergies No Known Allergies Reason For Referral [...] Problem Acquired hammer toe of right foot ([id number] 105) Other hammer toe(s) (acquired), right foot (M20.41) Active confirmed Problem Acquired hammer toe of left foot ([id number] 103) Other hammer toe(s) (acquired), left foot (M20.42) Active confirmed Plan Of Treatment No Information Insurance Providers Payer Name Payer Address Payer Phone Subscriber Number Group Number Insured Name Patient Relationship to Insured Coverage Start Date Coverage End Date Cigna [address] [place] [phone] [id number] Ja Epsp Self - patient is the insured Medical (General) History Medical History History ICD Code Arthritis High blood pressure Surgical History Surgery Date(Month/Year)
[2024-12-15 08:34] VITALS: BP 134/86; PULSE 91; BMI 29.2
== END 2024-12-15 08:57 | disposition home or self-care (01) ==
LOC: HO.HCS 08:23
PROVIDERS: PCP Nurse Practitioner Family; Visit Provider Internal Medicine Cardiovascular Disease
DX: I77.810 Thoracic aortic ectasia (principal); I10 Essential (primary) hypertension; R55 Syncope and collapse
CPT/HCPCS: 93010; 93291; 99214

== ENCOUNTER → 2024-12-15 08:22 | Outpatient (BNVA) | payer OTHER, SELFPAY | PROVIDERS: PCP Nurse Practitioner Family; Visit Provider Internal Medicine Cardiovascular Disease | DX: I77.810 Thoracic aortic ectasia (principal) | CPT/HCPCS: 93005 ==

== ENCOUNTER 2024-12-28 14:45 | Outpatient (AMB) | payer OTHER, SELFPAY ==
--- NOTE | 2024-12-28 14:49 | A.OFFPC_ITS ---
Intake Visit Reasons: pcp update Intake Note: Telehealth to update on his passing. Senior Litigation Paralegal Required: No Allergies No Known Allergies Allergy (Verified 12/28/24 15:10) Medication List - Last Reconciled 12/28/24 by ELBERT SrP- amlodipine 5 mg PO DAILY lisinopril 20 mg PO DAILY mecobalamin (vitamin B12) 1,000 mcg PO DAILY multivitamin 1 tab PO DAILY Tobacco use date assessed: 12/28/24 Fall risk assessment: No Falls in past year Last assessed Fall Risk: 12/28/24 Dental Screening Dental Screen Date: 12/28/24 Did you have a dental visit in the last 12 months?: Yes Did you have a dental problem in the last 6 months where you did not have access to dental care?: No Was dental information given to patient?: Patient has dentist HPI HPI Comments History of Present Illness Details 64-year-old male s/p cardiac arrest 07/23, fractures of the anterior right 2nd through 5th ribs as a result of the CPR, HTN, ETOH use, marijuana use, dilation of the ascending aorta 4 cm (echocardiogram 07/29/2023), b12 anemia, Hyperlipidemia, Vit D def Status post tonsillectomy Specialists: [facility] Maintenance: 07/2023 Ejection fraction 62% mild calcif ication of the aortic valve, trace aortic valve regurg. Moderate focal hypertrophy of the basal septum Colon: declines. Tdap 01/2024, Flu 2023, COVID, recommend Shingles and Prevnar Optho - glasses, visits every other year History of Present Illness Telehealth visit to fu on the sudden loss of his , Nayely, who was also my patient She became sick w/ gallbladder cancer and deteriorated quickly and at home under hospice care He feels like he is managing the loss well. Supportive friends and family. Physical Exam Limited physical exam was conducted Awake alert NAD Speaking in full sentences Engaging, appropriate Skin pink warm and dry Mood and affect appropriate Plan: Empathy and support offered. Edu to reach out if he needs additional support RTO as scheduled, sooner PRN Telehealth Attestation Documentation confirmed accurate for telehealth conducted via phone consultation. The patient has been explained that this is an interactive (audio/video) telehealth encounter and what that consists of. The patient understands and wishes to proceed. Neteven platform was used. Total time spent caring for the patient today was 30 minutes. This includes time spent before the visit reviewing the chart, time spent during the visit, and time spent after the visit on documentation, reviewing laboratory results, diagnostic imaging, medications, performing a medically necessary evaluation, counseling on diagnoses, care coordination, ordering appropriate tests, ordering appropriate medications, review of tests performed by other providers, reporting test results with the patient, communication with other healthcare providers. [facility] Medical History (Updated 12/28/24 @ 15:12 by Princess Randle [facility]) Alcohol use Arthritis Cardiac arrest HTN (hypertension) Syncope Surgical History Colon cancer screening declined (~2024) History of tonsillectomy History of vasectomy Family History Daughter Bipolar 1 disorder Other Mental health disorder Social History Household Members: Spouse Housing: House Do you presently have visiting nurse or other home services: No Alcohol intake: current Alcohol intake frequency: 0-2 drinks per day Alcohol type: beer Patient Tobacco Use Status: Former Tobacco user Tobacco use type: Cigarette Cigarettes Per Day: 1 Years Smoked: 20 Packs per year/per ci.00 e-Cigarette/Vaping Use: Never Used service: No Current occupational status: employed Current occupation: [employer] Current occupational exposures/hazards: No Sexual orientation: Unable to collect Gender identity: Unable to collect Cognitive needs: No Hearing needs: No Vision needs: Yes (wears glasses) Questionnaire Thrive Questionnaire Date Thrive assessed: 07/15/24 ZAID-7 AMB Questionnaire ZAID-7 Date ZAID - 7 assessed: 07/15/24 Source: Developed by Drs. Javi James, Mónica Lowe, David Aguilar and colleagues, with an educational adelfo from [employer]. Physical exam (Primary Care) Tobacco/Smoking Status: Tobacco use Status Tobacco use date assessed 12/28/24 12/28/24 14:50 Patient Tobacco Use Status Former Tobacco user 12/28/24 14:50 Tobacco use type Cigarette 12/28/24 14:50 e-Cigarette/Vaping Use Never Used 12/28/24 14:50 Thrive Assessment: Date of Thrive Assessment Date Thrive assessed 07/15/24 12/28/24 14:50 Telehealth Telehealth Telehealth Platform: Neteven Location of provider rendering services: practice address Location of patient: address on file Patient Identification confirmed using: Name, : Yes Telehealth method: voice only Patient verbally consented to treatment: Yes Patient verbally consented to billing insurance company: Yes Patient informed of any privacy concerns related to visit: Yes Minutes spent on Phone/Video with Pt.: 30 Coding Level of Care Code Tele Est Pt Level 4 (59025) Complex EM visit Add On G2211 Diagnoses of Z63.4 Assessment & Plan Assessment & Plan (1) of : Code(s): Z63.4 - Disappearance and of family member Category: Medical Plan .
--- OUTSIDE RECORDS SUMMARY | 2024-12-28 15:40 | XMS_ITS | Patient Health Record ---
[facility] Address [address] [place] [address] Care Team Providers Care Tour Actor Name Role Phone Claudio Lynn Primary Care Provider Reese Stokes Unavailable [phone] Allergies No Known Allergies Reason For Referral [...] Problem Acquired hammer toe of left foot ([id number] 103) Other hammer toe(s) (acquired), left foot (M20.42) Active confirmed Plan Of Treatment No Information Insurance Providers Payer Name Payer Address Payer Phone Subscriber Number Group Number Insured Name Patient Relationship to Insured Coverage Start Date Coverage End Date Cigna [address] [place] [phone] [id number] Ja Epps Self - patient is the insured Medical (General) History Medical History History ICD Code Arthritis High blood pressure Surgical History Surgery Date(Month/Year)
--- OUTSIDE RECORDS SUMMARY | 2024-12-28 15:40 | XMS_ITS | Clinical Summary ---
Author Organization [facility] Address [address] [place] [address] Care Team Providers Care Marine Service Operator Name Role Phone Unavailable Primary Care Provider Unavailabl e Social History Tobacco Use Types Packs/Day Years Used Date Smoking Tobacco: Never Assessed Sex and Gender Information Value Date Recorded Sex Assigned at Not on file Legal Sex Male 1:11 PM [facility] Gender Identity Not on file Sexual Orientation Not on file Plan of Treatment Not on file Insurance
== END 2024-12-28 15:31 | disposition home or self-care (01) ==
LOC: HO.HMCFM 14:45
PROVIDERS: PCP Nurse Practitioner Family; Visit Provider Nurse Practitioner Family
DX: F43.20 Adjustment disorder, unspecified (principal); Z63.4 Disappearance and death of family member

== ENCOUNTER → 2025-01-02 23:59 | Outpatient (BNV) | payer OTHER, SELFPAY ==
--- NOTE | 2025-01-05 11:32 | A.OFFVIS_ITS ---
Intake Visit Reasons: Remote ILR check- [employer] Allergies No Known Allergies Allergy (Verified 12/28/24 15:10) [facility] Medical History (Updated 12/28/24 @ 15:12 by Princess Randle [facility]) Cardiac arrest Arthritis Alcohol use Syncope HTN (hypertension) Surgical History Colon cancer screening declined (~2024) History of vasectomy History of tonsillectomy Family History Daughter Bipolar 1 disorder Other Mental health disorder Social History Household Members: Spouse Housing: House Do you presently have visiting nurse or other home services: No Alcohol intake: current Alcohol intake frequency: 0-2 drinks per day Alcohol type: beer Patient Tobacco Use Status: Former Tobacco user Tobacco use type: Cigarette Cigarettes Per Day: 1 Years Smoked: 20 Packs per year/per ci.00 e-Cigarette/Vaping Use: Never Used service: No Current occupational status: employed Current occupation: [employer] Current occupational exposures/hazards: No Sexual orientation: Unable to collect Gender identity: Unable to collect Cognitive needs: No Hearing needs: No Vision needs: Yes (wears glasses) Office Procedures Cardiac Device Check Cardiac Device Check Details: Remote implantable loop recorder report generated 01/02/2025. No pauses or significant tachyarrhythmias noted. Rare PVCs noted [id number] Cardiac Interrogation, subcut cardiac rhythm monitor Procedure code (CPT) selection complete Assessment & Plan Assessment & Plan (1) Implantable loop recorder present: Code(s): Z95.818 - Presence of other cardiac implants and grafts Category: Medical Plan: See above Coding Level of Care Code Procedure Only Diagnoses Implantable loop recorder present Z95.818 CPT Codes Cardiac Device Check - Cardiac Device 16: [id number] Cardiac Interrogation, subcut cardiac rhythm monitor ([id number])
== END ==
PROVIDERS: PCP Nurse Practitioner Family; Visit Provider Internal Medicine Cardiovascular Disease
DX: Z45.09 Encounter for adjustment and management of other cardiac device (principal)
CPT/HCPCS: 93298

== ENCOUNTER → 2025-02-01 23:59 | Outpatient (BNV) | payer OTHER, SELFPAY ==
--- NOTE | 2025-02-13 09:23 | MHC.OFFVIS ---
Intake Visit Reasons: Remote ILR check- [employer] Allergies No Known Allergies Allergy (Verified 12/28/24 15:10) [facility] Medical History (Updated 12/28/24 @ 15:12 by Princess Randle [facility]) Cardiac arrest Arthritis Alcohol use Syncope HTN (hypertension) Surgical History Colon cancer screening declined (~2024) History of vasectomy History of tonsillectomy Family History Daughter Bipolar 1 disorder Other Mental health disorder Social History Household Members: Spouse Housing: House Do you presently have visiting nurse or other home services: No Alcohol intake: current Alcohol intake frequency: 0-2 drinks per day Alcohol type: beer Patient Tobacco Use Status: Former Tobacco user Tobacco use type: Cigarette Cigarettes Per Day: 1 Years Smoked: 20 Packs per year/per ci.00 e-Cigarette/Vaping Use: Never Used service: No Current occupational status: employed Current occupation: [employer] Current occupational exposures/hazards: No Sexual orientation: Unable to collect Gender identity: Unable to collect Cognitive needs: No Hearing needs: No Vision needs: Yes (wears glasses) Office Procedures Cardiac Device Check Cardiac Device Check Details: Remote implantable loop recorder report generated 02/01/2025. No significant arrhythmias or pauses noted. [id number] Cardiac Interrogation, subcut cardiac rhythm monitor Procedure code (CPT) selection complete Assessment & Plan Assessment & Plan (1) Implantable loop recorder present: Code(s): Z95.818 - Presence of other cardiac implants and grafts Category: Medical Plan: See above Coding Level of Care Code Procedure Only Diagnoses Implantable loop recorder present Z95.818 CPT Codes Cardiac Device Check - Cardiac Device 16: [id number] Cardiac Interrogation, subcut cardiac rhythm monitor ([id number])
== END ==
PROVIDERS: PCP Nurse Practitioner Family; Visit Provider Internal Medicine Cardiovascular Disease
DX: Z45.09 Encounter for adjustment and management of other cardiac device (principal)
CPT/HCPCS: 93298

== ENCOUNTER 2025-02-22 11:22 | Outpatient (REF) | payer MEDICARE, SELFPAY ==
[2025-02-22 11:57] VITALS: BP 141/81; PULSE 82; RESP 16; TEMP 36.4; O2SAT 97
--- NOTE | 2025-02-22 14:49 | P.BOP_ITS ---
Brief Operative Note Date of Service: 02/22/25 Pre-op diagnosis: Implantable loop recorder in place Post-op diagnosis: same Procedure: Removal of implantable loop recorder Implants: After obtaining consent patient was laid supine on the operating table in minor surgery suite. Patient is precordial area was then prepped and draped in a sterile fashion. Patient was then given 2% lidocaine with epinephrine intradermally and subcutaneously around the head of the implantable loop recorder identified by palpation. A small incision was then made. After some blunt dissection the implantable loop recorder was removed with the help of Lenka forcejeferson. The wound was then closed with Steri-Strips and sterile pressure dressing applied. Surgeon: Alonso Gandara MD Was an Dispatcher Street Department used for this Procedure?: No Estimated blood loss (mL): 5 Pathology: none sent Condition: stable Disposition: same day
== END 2025-02-22 11:23 | disposition home or self-care (01) ==
LOC: HO.MS 11:22
PROVIDERS: PCP Nurse Practitioner Family; Visit Provider Internal Medicine Cardiovascular Disease
PROC: (CPT 33286; principal; 2025-02-22 12:00)
DX: Z45.09 Encounter for adjustment and management of other cardiac device (principal)
CPT/HCPCS: 33286; J2004

== ENCOUNTER → 2025-02-22 11:22 | Outpatient (BNV) | payer MEDICARE, SELFPAY | PROVIDERS: PCP Nurse Practitioner Family; Visit Provider Internal Medicine Cardiovascular Disease | DX: Z45.09 Encounter for adjustment and management of other cardiac device (principal) | CPT/HCPCS: 33286 ==